=== PATIENT | male | born 1950 | race Two or more races ===

== ENCOUNTER → 2016-07-10 | Outpatient (CLI) | payer MEDICARE, OTHER ==
[2016-07-10 14:57] LABS: ABSOLUTE EOSINOPHILS # (AUTO) 0.1 10^3/uL (0.0-0.6); ABSOLUTE LYMPHOCYTES (AUTO) 2.1 10^3/uL (0.5-4.7); ABSOLUTE MONOCYTES (AUTO) 0.5 10^3/uL (0.1-1.4); ABSOLUTE NEUT (AUTO) 3.9 10^3/uL (1.7-8.2); BASOPHILS % (AUTO) 0.4 % (0-2); EOSINOPHILS % (AUTO) 1.2 % (0-6); HEMATOCRIT 41.8 % (37.9-51.0); HEMOGLOBIN 13.2 g/dL (13.5-17.0); HGB HCT DIFFERENCE -2.2; LYMPHOCYTES % (AUTO) 31.5 % (13-45); MEAN CORPUSCULAR HEMOGLOBIN 28.8 pg (27.0-33.4); MEAN CORPUSCULAR HGB CONC 31.5 g/dL (32.0-36.0); MEAN CORPUSCULAR VOLUME 91 fl (80-97); MONOCYTES % (AUTO) 7.5 % (3-13); RED BLOOD COUNT 4.57 10^6/uL (4.35-5.55); RED CELL DISTRIBUTION WIDTH 14.2 % (11.5-14.0); SEGMENTED NEUTROPHILS % (AUTO) 59.4 % (42-78); WHITE BLOOD COUNT 6.6 10^3/uL (4.0-10.5)
[2016-07-10 14:58] LABS: APPEARANCE,URINE CLEAR; BILIRUBIN,URINE NEGATIVE (NEGATIVE); GLUCOSE, URINE 50 mg/dL (NEGATIVE); KETONES,URINE NEGATIVE (NEGATIVE); LEUKOCYTE ESTERASE,URINE NEGATIVE (NEGATIVE); NITRITE,URINE NEGATIVE (NEGATIVE); PROTEIN,URINE NEGATIVE (NEGATIVE); URINE SPECIFIC GRAVITY 1.014; UROBILINOGEN,URINE NEGATIVE mg/dL (<2.0)
[2016-07-10 15:19] LABS: ANION GAP 12 (5-19); BLOOD UREA NITROGEN 11 mg/dL (7-20); CALCIUM 9.5 mg/dL (8.4-10.2); CARBON DIOXIDE 28 mmol/L (22-30); CHLORIDE 103 mmol/L (98-107); CREATININE RESULT 0.73 mg/dL (0.52-1.25); GLUCOSE 163 mg/dL (75-110); POTASSIUM 4.8 mmol/L (3.6-5.0)
--- NOTE | 2016-07-10 19:22 | EKG REPORT ---
SEVERITY:- NORMAL ECG - SINUS RHYTHM : Confirmed by: Lisa Hernandes MD 10-Jul-2016 19:22:01
== END ==
LOC: OD 13:59
PROVIDERS: ATTEND Orthopaedic Surgery
DX: Z01.810 Encounter for preprocedural cardiovascular examination (principal); Z01.811 Encounter for preprocedural respiratory examination; Z01.818 Encounter for other preprocedural examination; M17.12 Unilateral primary osteoarthritis, left knee; E11.9 Type 2 diabetes mellitus without complications; Z79.899 Other long term (current) drug therapy
CPT/HCPCS: 36415; 71020; 80048; 81001; 85025; 93005; 93010

== ENCOUNTER 2016-08-18 07:27 | Inpatient (IN) | payer MEDICARE, BC, OTHER ==
[2016-08-07 13:15] LABS: HEMATOCRIT 40.5 % (37.9-51.0); HEMOGLOBIN 13.4 g/dL (13.5-17.0); HGB HCT DIFFERENCE -0.3; MEAN CORPUSCULAR HEMOGLOBIN 29.3 pg (27.0-33.4); MEAN CORPUSCULAR HGB CONC 33.2 g/dL (32.0-36.0); MEAN CORPUSCULAR VOLUME 88 fl (80-97); RED BLOOD COUNT 4.58 10^6/uL (4.35-5.55); RED CELL DISTRIBUTION WIDTH 14.6 % (11.5-14.0); WHITE BLOOD COUNT 7.4 10^3/uL (4.0-10.5)
[2016-08-07 13:19] LABS: APPEARANCE,URINE CLEAR; BILIRUBIN,URINE NEGATIVE (NEGATIVE); GLUCOSE, URINE 150 mg/dL (NEGATIVE); KETONES,URINE NEGATIVE (NEGATIVE); LEUKOCYTE ESTERASE,URINE NEGATIVE (NEGATIVE); NITRITE,URINE NEGATIVE (NEGATIVE); PROTEIN,URINE NEGATIVE (NEGATIVE); URINE SPECIFIC GRAVITY 1.006; UROBILINOGEN,URINE NEGATIVE mg/dL (<2.0)
[2016-08-07 13:38] LABS: ANION GAP 8 (5-19); BLOOD UREA NITROGEN 8 mg/dL (7-20); CALCIUM 9.8 mg/dL (8.4-10.2); CARBON DIOXIDE 29 mmol/L (22-30); CHLORIDE 101 mmol/L (98-107); CREATININE RESULT 0.66 mg/dL (0.52-1.25); GLUCOSE 202 mg/dL (75-110); POTASSIUM 4.4 mmol/L (3.6-5.0); SODIUM 137.8 mmol/L (137-145)
[~2016-08-18 07:27] MED LIST: BUPIVACAINE INJ/PF LIPOSOME/PF 266 MG/20 ML SDV INFIL PRN; CEFAZOLIN INJ 1 GM VIAL IV PRN; IBUPROFEN 800 MG in NORMAL SALINE 250 ML IV PRN; LANSOPRAZOLE 15 MG TAB.RAP.DR PO PRN; NORMAL SALINE 1000 ML 1,000 ML IV PRN; OXYCODONE HCL SR 10 MG TABLET PO PRN; SCOPOLAMINE HYDROBROMIDE 1.5 MG PATCH.TD72 TD PRN; VANCOMYCIN HCL 1,000 MG in DEXTROSE 5%-WATER 250 ML IV PRN
[2016-08-18] MEDS ORDERED: METOCLOPRAMIDE HCL INJ/PF 10 MG/2 ML SDV ONE ×2 (08:50→14:20)
[2016-08-18] MEDS ORDERED: FAMOTIDINE INJ/PF 20 MG/2 ML SDV IV ONE (08:50)
[2016-08-18] MEDS ORDERED: THROMBIN (BOVINE) 5000 UNIT EPITAXIS KIT ONE (08:51)
[2016-08-18] MEDS ORDERED: BUPIVACAINE INJ/PF LIPOSOME/PF 266 MG/20 ML SDV ONE (08:51)
[2016-08-18] MEDS ORDERED: THROMBIN (BOVINE) TOPICAL 20000 UNIT VIAL ONE (08:51)
[2016-08-18] MEDS ORDERED: MIDAZOLAM 2 MG/2 ML INJ ONE (09:24)
[2016-08-18] MEDS ORDERED: FENTANYL CITRATE INJ/PF 250 MCG/5 ML AMPULE ONE (09:24)
[2016-08-18] MEDS ORDERED: PROPOFOL INJ 200 MG/20 ML VIAL IV ONE (09:25)
[2016-08-18] MEDS ORDERED: DEXMEDETOMIDINE INJ 80 MCG/20 ML VIAL IV ONE (09:25)
[2016-08-18] MEDS ORDERED: MORPHINE SULFATE 10 MG/ML INJ ONE (09:25)
[2016-08-18] MEDS ORDERED: TRANEXAMIC ACID INJ/PF 1,000 MG/10 ML SDV IV ONE ×2 (09:25→13:00)
[2016-08-18] MEDS ORDERED: PROMETHAZINE HCL INJ 25 MG/1 ML VIAL IV PRN ×2 (11:11)
[2016-08-18] MEDS ORDERED: DIPHENHYDRAMINE HCL 50 MG/ML VIAL IV PRN ×2 (11:11→11:41)
[2016-08-18] MEDS ORDERED: MEPERIDINE HCL/PF INJ 25 MG/1 ML DISP.SYRIN IV PRN (11:11)
[2016-08-18] MEDS ORDERED: OXYCODONE-ACETAMINOPHEN 5-325 MG TABLET PO PRN ×2 (11:11)
[2016-08-18] MEDS ORDERED: FENTANYL CITRATE INJ/PF 100 MCG/2 ML AMPUL IV PRN ×3 (11:11)
[2016-08-18] MEDS ORDERED: MORPHINE SULFATE 10 MG/ML INJ IV PRN ×3 (11:11→11:41)
[2016-08-18] MEDS ORDERED: RINGERS SOLUTION,LACTATED 1,000 ML IV PRN (11:41)
[2016-08-18] MEDS ORDERED: ACETAMINOPHEN 325 MG TABLET PO PRN (11:41)
[2016-08-18] MEDS ORDERED: MORPHINE SULFATE 10 MG/ML INJ IM PRN (11:41)
[2016-08-18] MEDS ORDERED: MAG HYDROX/AL HYDROX/SIMETH SUSP 30 ML UDCUP PO PRN (11:41)
[2016-08-18] MEDS ORDERED: ONDANSETRON 4 MG TAB.RAPDIS PO PRN (11:41)
--- NOTE | 2016-08-18 11:41 | Operative Report ---
Operative Report DATE OF SURGERY: 08/18/16 PREOPERATIVE DIAGNOSIS: Left knee arthritis OPERATION: Left knee arthroplasty SURGEON: FRANKY RIDER ANESTHESIA: Spinal TISSUE REMOVED OR ALTERED: Bone to pathology ESTIMATED BLOOD LOSS: 100 PROCEDURE: Implants used: Femur: Striker triathlon #7 CR femur Tibia:, 6 tibia Tibial liner:, 11 millimeters CS insert Patella:, 38 mm oval patella Procedure with the patient supine on the operating table the, left the limb is prepped and draped in a sterile fashion. The limb was elevated for exsanguination and the tourniquet inflated to 280 torr. A standard midline median parapatellar approach the knee is taken. Access is gained to the femoral canal through the intercondylar notch. Intramedullary alignment instrumentation used to resect 10 mm of distal femur in 5 of valgus. Sizing guide indicated a size 7 femur. Appropriate cutting jig is then used to fashion anterior posterior and chamfer cuts. A trial reduction femurs performed and this is judged to be adequate. Attention was next turned to the tibia. Using an extra medullary alignment system 9 millimeters was resected off the lateral tibial plateau. This is sized to a size 6 tibia. A trial reduction was now performed with a 7 femur and a 6 tibia using a 11 millimeters spacer. It is full extension and central patellofemoral tracking. The articular surface the patella was next resected using an oscillating saw. All trial implants were removed. Polymethylmethacrylate is mixed and used to cement the above implants in place. On adequate curing the cement excess cement was removed the tourniquet was deflated hemostasis obtained the wound is then closed in layers using interrupted Vicryl followed by amanda. A sterile compressive dressing was applied and the patient returned to recovery room in satisfactory condition.
[2016-08-18] MEDS ORDERED: DEXTROSE 40% GEL 15 GM TUBE PO PRN (12:24)
[2016-08-18] MEDS ORDERED: DEXTROSE 40% GEL 15 GM TUBE X 2 PO PRN (12:24)
[2016-08-18] MEDS ORDERED: INSULIN LISPRO 100 UNIT/ML 3 ML VIAL SUBCUT PRN (12:24)
[2016-08-18] MEDS ORDERED: DEXTROSE 50%-WATER SYRINGE 25 GM/50 ML DOSE IV PRN (12:24)
[2016-08-18] MEDS ORDERED: GLUCAGON,HUMAN RECOMB 1 MG INJ IM PRN (12:24)
[2016-08-18] MEDS ORDERED: DEXTROSE 50%-WATER SYRINGE 12.5 GM/25 ML DOSE IV PRN (12:24)
[2016-08-18] MEDS ORDERED: GLYCOPYRROLATE INJ 0.4 MG/2 ML VIAL ONE (14:20)
[2016-08-18] MEDS ORDERED: LIDOCAINE 2% INJ-PF (20 MG/ML) 10 ML AMPUL ONE (14:20)
[2016-08-18] MEDS ORDERED: PHENYLEPHRINE HCL INJ/PF 10 MG/1 ML SDV ONE (14:20)
[2016-08-18] MEDS ORDERED: ONDANSETRON HCL INJ/PF 4 MG/2 ML SDV ONE (14:20)
[2016-08-18] MEDS: OXYBUTYNIN CHLORIDE 5 MG TABLET PO SCH ×2 (15:22→22:34)
[2016-08-18] MEDS: MORPHINE SULFATE 10 MG/ML INJ IV PRN (15:49)
[2016-08-18] MEDS: OMEGA-3 ACID ETHYL ESTERS 1 GM CAPSULE PO SCH (17:36)
[2016-08-18] MEDS: SENNOSIDES/DOCUSATE 8.6-50 MG 1 EACH TABLET PO SCH (17:36)
[2016-08-18] MEDS: SITAGLIPTIN PHOSPHATE 50 MG TABLET PO SCH (17:37)
[2016-08-18] MEDS: METFORMIN HCL 500 MG TABLET PO SCH (17:37)
[2016-08-18] MEDS: ONDANSETRON HCL INJ/PF 4 MG/2 ML SDV IV PRN (17:37)
[2016-08-18] MEDS: ATORVASTATIN CALCIUM 40 MG TABLET PO SCH (17:37)
[2016-08-18] MEDS: IBUPROFEN 800 MG in NORMAL SALINE 250 ML IV SCH (17:38)
[2016-08-18] MEDS ORDERED: (PENDING PHARMACY ID) (Fish Oil/Dha/Epa [Fish Oil 1,200 Mg Fish Oil] 1 EACH) PO SCH (18:00)
[2016-08-18] MEDS ORDERED: (PENDING PHARMACY ID) (Sitagliptin Phos/Metformin Hcl [Janumet 50-1,000 Mg Tablet] 1 EACH) PO SCH (18:00)
[2016-08-18] MEDS ORDERED: OXYBUTYNIN CHLORIDE 15 MG PO SCH (22:00)
[2016-08-18] MEDS: OXYCODONE HCL SR 10 MG TABLET PO SCH (22:34)
[2016-08-18] MEDS: RIVAROXABAN 10 MG TABLET PO SCH (22:36)
[2016-08-18] MEDS ORDERED: VANCOMYCIN HCL 1,000 MG in DEXTROSE 5%-WATER 250 ML IV ONE (23:41)
[2016-08-19] MEDS: IBUPROFEN 800 MG in NORMAL SALINE 250 ML IV SCH ×3 (03:01→17:21)
[2016-08-19] MEDS: OXYCODONE HCL IR 5 MG TABLET PO PRN ×3 (04:01→17:21)
[2016-08-19] MEDS: OXYBUTYNIN CHLORIDE 5 MG TABLET PO SCH ×2 (05:57→14:03)
[2016-08-19] MEDS: LANSOPRAZOLE 30 MG TAB.RAP.DR PO SCH (05:57)
[2016-08-19 06:56] LABS: HEMATOCRIT 32.5 % (37.9-51.0); HGB HCT DIFFERENCE 0.5; MEAN CORPUSCULAR VOLUME 89 fl (80-97); RED BLOOD COUNT 3.68 10^6/uL (4.35-5.55); RED CELL DISTRIBUTION WIDTH 14.4 % (11.5-14.0); WHITE BLOOD COUNT 7.4 10^3/uL (4.0-10.5)
--- NOTE | 2016-08-19 06:59 | PDOC PROGRESS REPORT ---
Subjective Progress Note for:: 08/19/16 Subjective:: Patient with minimal complaints Physical Exam Vital Signs: Temp Pulse Resp BP Pulse Ox 36.9 C 62 18 119/60 95 08/19/16 04:24 08/19/16 04:24 08/19/16 04:24 08/19/16 04:24 08/19/16 04:24 Intake & Output 08/17/16 08/18/16 08/19/16 06:59 06:59 06:59 Intake Total 5736 Output Total 3220 Balance 2516 General appearance: PRESENT: no acute distress Head exam: PRESENT: normocephalic Eye exam: PRESENT: EOMI Respiratory exam: PRESENT: unlabored Cardiovascular exam: PRESENT: RRR Pulses: PRESENT: +1 pedal pulses bilateral Vascular exam: PRESENT: normal capillary refill GI/Abdominal exam: PRESENT: soft Rectal exam: PRESENT: deferred Extremities exam: PRESENT: other - Left lower extremity dressing clean dry and intact. Distal neurovascular examinations intact. Neurological exam: PRESENT: alert, awake, oriented to person, oriented to place , oriented to time, oriented to situation, CN II-XII grossly intact. ABSENT: motor sensory deficit Psychiatric exam: PRESENT: appropriate affect, normal mood. ABSENT: homicidal ideation, suicidal ideation Skin exam: PRESENT: dry, intact, warm. ABSENT: cyanosis, rash Results Impressions: Knee X-Ray 08/18/16 11:42 IMPRESSION: SATISFACTORY POSTOPERATIVE LEFT KNEE. Status: Imported from PACS Assessment & Plan - Diagnosis (1) Arthritis of left knee Is this a current diagnosis for this admission?: YesPlan: 66-year-old male postop day 1 from left knee arthroplasty. Blood glucoses are well controlled. He is ambulating 100 feet with a walker and physical therapy. Anticipate discharge home tomorrow with home health nursing, home health physical therapy, we'll Walker, bedside commode. (2) Diabetes Qualifiers: Diabetes mellitus type: type 2 Is this a current diagnosis for this admission?: YesPlan: Patient relatively well controlled with blood glucoses running between 140 and 193 on his home regimen with a superimposed sliding scale. - Time Time Spent with patient: 15-24 minutes Anticipated discharge: Home with Homehealth Within: within 24 hours
[2016-08-19 07:20] LABS: ANION GAP 8 (5-19); BLOOD UREA NITROGEN 11 mg/dL (7-20); CALCIUM 9.2 mg/dL (8.4-10.2); CARBON DIOXIDE 28 mmol/L (22-30); CHLORIDE 104 mmol/L (98-107); CREATININE RESULT 0.68 mg/dL (0.52-1.25); GLUCOSE 186 mg/dL (75-110); POTASSIUM 4.5 mmol/L (3.6-5.0); SODIUM 140.2 mmol/L (137-145)
[2016-08-19] MEDS ORDERED: ENALAPRIL MALEATE 40 MG PO SCH (08:00)
[2016-08-19] MEDS: METFORMIN HCL 500 MG TABLET PO SCH ×2 (08:39→17:21)
[2016-08-19] MEDS: SITAGLIPTIN PHOSPHATE 50 MG TABLET PO SCH ×2 (08:39→17:21)
[2016-08-19] MEDS: OMEGA-3 ACID ETHYL ESTERS 1 GM CAPSULE PO SCH ×2 (08:39→17:21)
[2016-08-19] MEDS: GLIPIZIDE XL 5 MG TAB.ER.24 PO SCH (08:39)
[2016-08-19] MEDS: PRENATAL VITAMIN W-O CA NO5/FE FUMARATE/FA CAPSULE PO SCH (11:13)
[2016-08-19] MEDS: ENALAPRIL MALEATE 10 MG TABLET PO SCH (11:13)
[2016-08-19] MEDS: SENNOSIDES/DOCUSATE 8.6-50 MG 1 EACH TABLET PO SCH ×2 (11:13→17:21)
[2016-08-19] MEDS: OXYCODONE HCL SR 10 MG TABLET PO SCH (11:14)
[2016-08-19] MEDS: ATORVASTATIN CALCIUM 40 MG TABLET PO SCH (17:21)
[2016-08-20] MEDS: RIVAROXABAN 10 MG TABLET PO SCH (00:32)
[2016-08-20] MEDS: OXYCODONE HCL SR 10 MG TABLET PO SCH ×2 (00:32→11:46)
[2016-08-20] MEDS: OXYBUTYNIN CHLORIDE 5 MG TABLET PO SCH ×2 (00:32→06:11)
[2016-08-20] MEDS: IBUPROFEN 800 MG in NORMAL SALINE 250 ML IV SCH ×2 (01:51→11:50)
[2016-08-20] MEDS: LANSOPRAZOLE 30 MG TAB.RAP.DR PO SCH (06:11)
--- NOTE | 2016-08-20 07:04 | PDOC DISCHARGE SUMMARY ---
General - Admit/Disc Date/PCP Admission Date/Primary Care Provider: 08/18/16 07:27 ENEDELIA HOPKINS MD Discharge Date: 08/20/16 - Discharge Diagnosis (1) Arthritis of left knee Is this a current diagnosis for this admission?: Yes (2) Diabetes Is this a current diagnosis for this admission?: Yes - Additional Information Resuscitation Status: Full Code Discharge Activity: Balance Activity w/Rest Home Medications: Atorvastatin Calcium [Lipitor 40 mg Tablet] 40 mg PO QPM 08/05/16 Enalapril Maleate [Vasotec] 40 mg PO QAM 08/05/16 Fish Oil/Dha/Epa [Fish Oil 1,200 mg Fish Oil] 1 each PO BID 08/05/16 Glipizide [Glipizide ER] 5 mg PO QAM 08/05/16 Multivitamin [Multivitamins] 1 each PO QAM 08/05/16 Omeprazole 20 mg PO QAM 08/05/16 Oxybutynin Chloride [Ditropan Xl] 15 mg PO QHS 08/05/16 Sitagliptin Phos/Metformin HCl [Janumet 50-1,000 mg Tablet] 1 each PO BID Oxycodone HCl [Oxy-Ir 5 mg Tablet] 5 mg PO Q6HP PRN #0 tablet 08/20/16 Rivaroxaban [Xarelto 10 mg Tablet] 10 mg PO QHS #0 tablet 08/20/16 History of Present Illness History of Present Illness: CLAIRE CABEZAS is a 66 year old male who presents with progressive left knee pain and functional disability secondary osteoarthritis. He is admitted for an elective left knee arthroplasty. Hospital Course Hospital Course: The patient submitted to the operating room where he undergoes an uncomplicated left knee arthroplasty. His returned to floor in satisfactory condition. He ambulates 300 feet on the first day. He makes further progress the next day. His diabetes is well controlled with his home regimen and a superimposed sliding scale. Several wrap is removed on postop day 2. Left knee. Go dressing is clean dry and intact. Distal neurovascular examinations intact. Physical Exam Vital Signs: Temp Pulse Resp BP Pulse Ox 36.8 C 64 16 137/70 H 98 08/20/16 00:29 08/20/16 00:29 08/20/16 00:29 08/20/16 00:29 08/20/16 00:29 Intake & Output 08/19/16 08/20/16 08/21/16 06:59 06:59 06:59 Intake Total 5736 2195 Output Total 3220 1125 Balance 2516 1070 General appearance: PRESENT: no acute distress Head exam: PRESENT: normocephalic Eye exam: PRESENT: EOMI Respiratory exam: PRESENT: unlabored Cardiovascular exam: PRESENT: RRR Pulses: PRESENT: +1 pedal pulses bilateral Vascular exam: PRESENT: normal capillary refill GI/Abdominal exam: PRESENT: soft Rectal exam: PRESENT: deferred Extremities exam: PRESENT: other - Left knee peak her dressing is clean dry and intact. Distal neurovascular examinations intact. Neurological exam: PRESENT: alert, awake, oriented to person, oriented to place , oriented to time, oriented to situation, CN II-XII grossly intact. ABSENT: motor sensory deficit Psychiatric exam: PRESENT: appropriate affect, normal mood. ABSENT: homicidal ideation, suicidal ideation Skin exam: PRESENT: dry, intact, warm. ABSENT: cyanosis, rash Results Laboratory Results: 08/19/16 06:12 08/19/16 06:12 08/19/16 06:12 Sodium 140.2 Potassium 4.5 Chloride 104 Carbon Dioxide 28 Anion Gap 8 BUN 11 Creatinine 0.68 Est GFR ( Amer) > 60 Est GFR (Non-Af Amer) > 60 Glucose 186 H Calcium 9.2 Impressions: Knee X-Ray 08/18/16 11:42 IMPRESSION: SATISFACTORY POSTOPERATIVE LEFT KNEE. Status: Imported from PACS Plan Discharge Plan: Patient to be discharged home with home health nursing, home health physical therapy, we'll Walker, bedside commode. Follow-up can be with Dr. Maddox [facility] for surgery in 2 weeks for staple removal. Peak a dressing can be removed by home health nursing on postop day 7, and replace with an OpSite. Time Spent: Less than 30 Minutes
[2016-08-20 07:35] LABS: HEMATOCRIT 33.4 % (37.9-51.0); HEMOGLOBIN 11.1 g/dL (13.5-17.0); HGB HCT DIFFERENCE -0.1; MEAN CORPUSCULAR HEMOGLOBIN 29.7 pg (27.0-33.4); MEAN CORPUSCULAR HGB CONC 33.1 g/dL (32.0-36.0); MEAN CORPUSCULAR VOLUME 90 fl (80-97); RED BLOOD COUNT 3.73 10^6/uL (4.35-5.55); RED CELL DISTRIBUTION WIDTH 14.6 % (11.5-14.0); WHITE BLOOD COUNT 11.2 10^3/uL (4.0-10.5)
[2016-08-20] MEDS: MORPHINE SULFATE 10 MG/ML INJ IV PRN (07:59)
[2016-08-20] MEDS: ONDANSETRON HCL INJ/PF 4 MG/2 ML SDV IV PRN (07:59)
[2016-08-20] MEDS: METFORMIN HCL 500 MG TABLET PO SCH (08:37)
[2016-08-20] MEDS: OMEGA-3 ACID ETHYL ESTERS 1 GM CAPSULE PO SCH (08:38)
[2016-08-20] MEDS: GLIPIZIDE XL 5 MG TAB.ER.24 PO SCH (08:38)
[2016-08-20] MEDS: SITAGLIPTIN PHOSPHATE 50 MG TABLET PO SCH (08:38)
[2016-08-20] MEDS: ENALAPRIL MALEATE 10 MG TABLET PO SCH (11:48)
[2016-08-20] MEDS: PRENATAL VITAMIN W-O CA NO5/FE FUMARATE/FA CAPSULE PO SCH (11:49)
[2016-08-20] MEDS: SENNOSIDES/DOCUSATE 8.6-50 MG 1 EACH TABLET PO SCH (11:50)
[2016-08-20 12:32] VITALS: BP 151/68
== END 2016-08-20 15:30 | disposition home health service (06) | DRG 470 ==
LOC: INOR 07:27 → 4S 14:09
PROVIDERS: ADMIT Orthopaedic Surgery; ATTEND Orthopaedic Surgery
PROC: 0SRD0J9 Replacement of Left Knee Joint with Synthetic Substitute, Cemented, Open Approach (ICD-10-PCS; principal; 2016-08-18 09:30)
DX: M17.12 Unilateral primary osteoarthritis, left knee (principal); E11.9 Type 2 diabetes mellitus without complications; Z79.899 Other long term (current) drug therapy; Z79.82 Long term (current) use of aspirin; Z98.49 Cataract extraction status, unspecified eye
CPT/HCPCS: 01402; 36415; 80048; 81001; 82962; 83036; 85027; 88305; 88311; 94799; C2625; C9290; G8978-GP; G8979-GP; G8987-GO; G8988-GO; J0690; J1741; J2250; J2270; J2370; J2405; J2704; J2765; J3010; J3370; J3490; J7050; J7060; S0028

== ENCOUNTER 2016-08-27 16:58 | Emergency (ER) | payer MEDICARE, BC, OTHER ==
--- NOTE | 2016-08-27 17:22 | ER Document Report ---
ED Medical Screen (RME) - General Stated Complaint: BLOOD SUGAR ISSUES Time seen by provider: 17:17 Mode of Arrival: Wheelchair Information source: Patient Notes: 66-year-old male presents to ED for elevated blood sugars with diabetes type II. He is on janumet twice a day. He has had knee replacement surgery on 08/18/2016 and since Thursday his sugars have been out of control. He was seen last night and started on Lantus insulin 15 units each night and was told to take the insulin each night. This morning after breakfast his sugar was elevated again. I have greeted and performed a rapid initial assessment of this patient. A comprehensive ED assessment and evaluation of the patient, analysis of test results and completion of medical decision making process will be conducted by an additional ED providers. TRAVEL OUTSIDE OF THE [place] IN LAST 30 DAYS: No - Related Data Allergies/Adverse Reactions: No Known Allergies Allergy (Verified 08/27/16 17:15) Past Medical History - Past Medical History Cardiac Medical History: Reports: Hx Heart Attack - 2008-Mild, Hx Hypercholesterolemia - since 1981, takes meds, Hx Hypertension - since 1981, takes meds Denies: Hx Atrial Fibrillation, Hx Congestive Heart Failure, Hx Coronary Artery Disease, Hx Peripheral Vascular Disease, Hx Pulmonary Embolism, Hx Heart Murmur Pulmonary Medical History: Reports: Hx Pneumonia - 2006? Denies: Hx Asthma, Hx Bronchitis, Hx COPD, Hx Respiratory Failure, Hx Sleep Apnea, Hx Tuberculosis Endocrine Medical History: Reports: Hx Diabetes Mellitus Type 2. Denies: Hx Graves' Disease, Hx Hyperthyroidism, Hx Hypothyroidism Renal/ Medical History: Reports: Hx Benign Prostatic Hyperplasia. Denies: Hx End Stage Renal Disease, Hx Kidney Stones, Hx Peritoneal Dialysis Malignancy Medical History: Denies Hx Lung Cancer GI Medical History: Reports: Hx Gastroesophageal Reflux Disease. Denies: Hx Crohn's Disease, Hx Hiatal Hernia, Hx Irritable Bowel, Hx Liver Failure, Hx Ulcer Musculoskeltal Medical History: Reports Hx Arthritis, Denies Hx Fibromyalgia, Denies Hx Muscular Dystrophy Traumatic Medical History: Denies: Hx Fractures Past Surgical History: Reports: Hx Herniorrhaphy - 1975 Inguinal, Hx Orthopedic Surgery - bilateral knees; L knee. Denies: Hx Appendectomy, Hx Bowel Surgery, Hx Cholecystectomy, Hx Colostomy, Hx Coronary Artery Bypass Graft, Hx Gastric Bypass Surgery, Hx Pacemaker, Hx Tonsillectomy - Immunizations Hx Diphtheria, Pertussis, Tetanus Vaccination: Yes
[2016-08-27 18:10] LABS: ABSOLUTE EOSINOPHILS # (AUTO) 0.1 10^3/uL (0.0-0.6); ABSOLUTE LYMPHOCYTES (AUTO) 1.6 10^3/uL (0.5-4.7); ABSOLUTE MONOCYTES (AUTO) 1.2 10^3/uL (0.1-1.4); ABSOLUTE NEUT (AUTO) 8.8 10^3/uL (1.7-8.2); BASOPHILS % (AUTO) 0.3 % (0-2); EOSINOPHILS % (AUTO) 0.5 % (0-6); HEMATOCRIT 33.7 % (37.9-51.0); HEMOGLOBIN 11.3 g/dL (13.5-17.0); HGB HCT DIFFERENCE 0.2; LYMPHOCYTES % (AUTO) 13.9 % (13-45); MEAN CORPUSCULAR HEMOGLOBIN 29.1 pg (27.0-33.4); MEAN CORPUSCULAR HGB CONC 33.4 g/dL (32.0-36.0); MEAN CORPUSCULAR VOLUME 87 fl (80-97); RED BLOOD COUNT 3.88 10^6/uL (4.35-5.55); RED CELL DISTRIBUTION WIDTH 14.4 % (11.5-14.0); SEGMENTED NEUTROPHILS % (AUTO) 75.3 % (42-78); WHITE BLOOD COUNT 11.7 10^3/uL (4.0-10.5)
[2016-08-27 18:18] LABS: APPEARANCE,URINE SLIGHTLY-CLOUDY; BILIRUBIN,URINE NEGATIVE (NEGATIVE); GLUCOSE, URINE >=500 mg/dL (NEGATIVE); KETONES,URINE NEGATIVE (NEGATIVE); LEUKOCYTE ESTERASE,URINE NEGATIVE (NEGATIVE); NITRITE,URINE NEGATIVE (NEGATIVE); PROTEIN,URINE NEGATIVE (NEGATIVE); URINE SPECIFIC GRAVITY 1.022
[2016-08-27 18:27] LABS: ALANINE AMINOTRANSFERASE 32 U/L (21-72); ALBUMIN 3.8 g/dL (3.5-5.0); ALKALINE PHOSPHATASE 90 U/L (38-126); ANION GAP 11 (5-19); ASPARTATE AMINO TRANSFERASE 22 U/L (17-59); BILIRUBIN,TOTAL 1.2 mg/dL (0.2-1.3); BLOOD UREA NITROGEN 17 mg/dL (7-20); CALCIUM 9.6 mg/dL (8.4-10.2); CARBON DIOXIDE 28 mmol/L (22-30); CHLORIDE 96 mmol/L (98-107); CREATININE RESULT 0.78 mg/dL (0.52-1.25); GLUCOSE 293 mg/dL (75-110); POTASSIUM 4.8 mmol/L (3.6-5.0); SODIUM 134.9 mmol/L (137-145); TOTAL PROTEIN 7.4 g/dL (6.3-8.2)
[2016-08-27] MEDS ORDERED: NORMAL SALINE 1000 ML 1,000 ML IV ONE (21:08)
[2016-08-27] MEDS ORDERED: INSULIN REG, HUMAN 100 UNIT/ML 3 ML VIAL (PYX) IV ONE (21:28)
--- NOTE | 2016-08-27 21:35 | ER Document Report ---
ED Blood Sugar Problem - General Chief Complaint: High Blood Sugar Stated Complaint: BLOOD SUGAR ISSUES Mode of Arrival: Wheelchair Information source: Patient, Relative Notes: 66 y/o M presents to ED c/o elevated blood glucose. Pt reports hx of type 2 NIDDM on glipizide and janumet. States blood sugars were well controlled at home until he had left knee replacement surgery last week and glucose has hovered in the high 200's since the surgery. Reports was seen in this ED yesterday and given insulin and NS bolus and dose of Lantus as well as prescription for home. States glucose had decreased this morning subsequently increased throughout the day. Also c/o left lower back pain. States thinks may be due to favoring left leg since surgery. Denies fever, dysuria, n/v, paresthesias, chest pain, sob. Reports left knee appears to be healing well and denies increased swelling, redness, or pain. TRAVEL OUTSIDE OF THE [place] IN LAST 30 DAYS: No - HPI Onset/Duration: Intermittent, Persistent Blood sugar level at home: 290 D-stick result: 293 Associated symptoms: None Similar symptoms previously: Yes Recently seen / treated by doctor: Yes - Related Data Allergies/Adverse Reactions: No Known Allergies Allergy (Verified 08/27/16 17:15) Past Medical History - General Information source: Patient - Social History Smoking Status: Never Smoker Chew tobacco use (# tins/day): No Frequency of alcohol use: None Drug Abuse: None Lives with: Family Family History: Reviewed & Not Pertinent Patient has suicidal ideation: No Patient has homicidal ideation: No - Past Medical History Cardiac Medical History: Reports: Hx Heart Attack - 2008-Mild, Hx Hypercholesterolemia - since 1981, takes meds, Hx Hypertension - since 1981, takes meds Denies: Hx Atrial Fibrillation, Hx Congestive Heart Failure, Hx Coronary Artery Disease, Hx Peripheral Vascular Disease, Hx Pulmonary Embolism, Hx Heart Murmur Pulmonary Medical History: Reports: Hx Pneumonia - 2006? Denies: Hx Asthma, Hx Bronchitis, Hx COPD, Hx Respiratory Failure, Hx Sleep Apnea, Hx Tuberculosis Endocrine Medical History: Reports: Hx Diabetes Mellitus Type 2. Denies: Hx Graves' Disease, Hx Hyperthyroidism, Hx Hypothyroidism Renal/ Medical History: Reports: Hx Benign Prostatic Hyperplasia. Denies: Hx End Stage Renal Disease, Hx Kidney Stones, Hx Peritoneal Dialysis Malignancy Medical History: Denies Hx Lung Cancer GI Medical History: Reports: Hx Gastroesophageal Reflux Disease. Denies: Hx Crohn's Disease, Hx Hiatal Hernia, Hx Irritable Bowel, Hx Liver Failure, Hx Ulcer Musculoskeltal Medical History: Reports Hx Arthritis, Denies Hx Fibromyalgia, Denies Hx Muscular Dystrophy Traumatic Medical History: Denies: Hx Fractures Past Surgical History: Reports: Hx Herniorrhaphy - 1975 Inguinal, Hx Orthopedic Surgery - bilateral knees; L knee. Denies: Hx Appendectomy, Hx Bowel Surgery, Hx Cholecystectomy, Hx Colostomy, Hx Coronary Artery Bypass Graft, Hx Gastric Bypass Surgery, Hx Pacemaker, Hx Tonsillectomy - Immunizations Hx Diphtheria, Pertussis, Tetanus Vaccination: Yes Hx Pneumococcal Vaccination: 03/15/17 Review of Systems - Review of Systems Constitutional: See HPI EENT: No symptoms reported Cardiovascular: No symptoms reported Respiratory: No symptoms reported Gastrointestinal: No symptoms reported Genitourinary: No symptoms reported Male Genitourinary: No symptoms reported Musculoskeletal: See HPI Skin: No symptoms reported Hematologic/Lymphatic: No symptoms reported Neurological/Psychological: No symptoms reported -: Yes All other systems reviewed and negative Physical Exam - Vital signs Vitals: Temp Pulse Resp BP Pulse Ox 99.7 F 88 18 158/79 H 97 08/27/16 17:06 08/27/16 17:06 08/27/16 17:06 08/27/16 17:06 08/27/16 17:06 Interpretation: Normal - General General appearance: Appears well, Alert In distress: None - HEENT Head: Normocephalic, Atraumatic Eyes: Normal Pupils: PERRL - Respiratory Respiratory status: No respiratory distress Chest status: Nontender Breath sounds: Normal Chest palpation: Normal - Cardiovascular Rhythm: Regular Heart sounds: Normal auscultation Murmur: No Pulses: Normal: Radial, Posterior tibial, Dorsalis pedis Normal capillary refill: Yes - Abdominal Inspection: Normal Distension: No distension Bowel sounds: Normal Tenderness: Nontender Organomegaly: No organomegaly - Back Back: Tender - Mild tenderness to palpation to left paraspinal musculature lumbar level. Full range of motion without paresthesias. Patient reports pain is worse with movement of left leg.. No: Normal, Nontender, Deformity/step-off , CVA tenderness, Vertebra tenderness, Scars, Scoliosis, Wounds, Other - Extremities General upper extremity: Normal inspection, Nontender, Normal color, Normal ROM , Normal strength, Normal temperature. No: Edema General lower extremity: Normal inspection, Nontender, Normal color, Normal ROM , Normal strength, Normal temperature. No: Edema Knee: Other - Patient has clean postsurgical bandage to left knee with no drainage or bleeding noted. No proximal or distal surrounding significant swelling, erythema, warmth, or bruising. Distal neurovascular and motor function intact. Ankle: Normal Foot: Normal - Neurological Neuro grossly intact: Yes Cognition: Normal Orientation: AAOx4 Andrea Coma Scale Eye Opening: Spontaneous [place] Coma Scale Verbal: Oriented [place] Coma Scale Motor: Obeys Commands [place] Coma Scale Total: 15 Speech: Normal Motor strength normal: LUE, RUE, LLE, RLE Sensory: Normal - Psychological Associated symptoms: Normal affect, Normal mood - Skin Skin Temperature: Warm Skin Moisture: Dry Skin Color: Normal Course - Re-evaluation Re-evalutation: 08/27/16 22:48 Patient hemodynamically stable, in no distress, afebrile, and appears well- hydrated. No suggestion of infection, DKA, or other complications from hyperglycemia at this time. Patient responded well to 1 L normal saline bolus and 4 units regular insulin IV. Discussed at length home care including diet and monitoring of blood sugar, follow-up with PCP, and ED return precautions. Patient appears stable at this time and is agreeable with discharge instructions. - Vital Signs Vital signs: Temp Pulse Resp BP Pulse Ox 98.6 F 72 16 120/61 94 08/27/16 22:45 08/27/16 22:44 08/27/16 22:44 08/27/16 22:44 08/27/16 22:44 - Laboratory Result Diagrams: 08/27/16 17:35 08/27/16 17:35 Laboratory results interpreted by me: 08/27/16 08/27/16 08/27/16 17:35 17:35 17:35 WBC 11.7 H RBC 3.88 L Hgb 11.3 L Hct 33.7 L RDW 14.4 H Absolute Neutrophils 8.8 H Sodium 134.9 L Chloride 96 L Glucose 293 H Urine Glucose (UA) >=500 H Urine Urobilinogen 4.0 H Discharge - Discharge Clinical Impression: Hyperglycemia Condition: Stable Disposition: HOME, SELF-CARE Instructions: Hyperglycemia ([facility]), Low Back Pain ([facility]) Additional Instructions: Continue taking your previously prescribed medications as directed and continue checking blood sugar several times evenly spaced during the day. Drink plenty of non-sugary fluids. Follow-up with your primary care provider tomorrow. Return to the emergency department for any worsening symptoms or any concerns. Referrals: ENEDELIA HOPKINS MD [Primary Care Provider] - Follow up tomorrow
[2016-08-27 22:45] VITALS: BP 120/61
== END 2016-08-27 22:59 | disposition home or self-care (01) ==
LOC: ER 16:58
DX: E11.65 Type 2 diabetes mellitus with hyperglycemia (principal); Z79.84 Long term (current) use of oral hypoglycemic drugs; Z98.890 Other specified postprocedural states; Z96.652 Presence of left artificial knee joint; M54.5 Low back pain; I25.2 Old myocardial infarction; I10 Essential (primary) hypertension
CPT/HCPCS: 99284; 96360; 36415; 87086; 82962; 85025; 80053; 81001; 87186; A9270; J7030; J1815

== ENCOUNTER 2017-07-04 15:06 | Emergency (ER) | payer MEDICARE, BC, OTHER ==
--- NOTE | 2017-07-04 17:06 | ER Document Report ---
ED Medical Screen (RME) - General Chief Complaint: Chest Pain Stated Complaint: CHEST PAIN Time Seen by Provider: 07/04/17 16:59 Mode of Arrival: Ambulatory Information source: Patient Notes: 67-year-old male presenting with complaints of near syncope today while playing golf. Patient states that when he would look down to putt he felt like he was "looking through water". Patient states he is lightheaded with an associated headache. Patient denies any chest pain. TRAVEL OUTSIDE OF THE [place] IN LAST 30 DAYS: No - Related Data Allergies/Adverse Reactions: No Known Allergies Allergy (Verified 08/27/16 17:15) Past Medical History - General Information source: Patient, [facility] - Social History Chew tobacco use (# tins/day): No Frequency of alcohol use: None Drug Abuse: None - Past Medical History Cardiac Medical History: Reports: Hx Heart Attack - 2008-Mild, Hx Hypercholesterolemia - since 1981, takes meds, Hx Hypertension - since 1981, takes meds Denies: Hx Atrial Fibrillation, Hx Congestive Heart Failure, Hx Coronary Artery Disease, Hx Peripheral Vascular Disease, Hx Pulmonary Embolism, Hx Heart Murmur Pulmonary Medical History: Reports: Hx Pneumonia - 2006? Denies: Hx Asthma, Hx Bronchitis, Hx COPD, Hx Respiratory Failure, Hx Sleep Apnea, Hx Tuberculosis Endocrine Medical History: Reports: Hx Diabetes Mellitus Type 2. Denies: Hx Graves' Disease, Hx Hyperthyroidism, Hx Hypothyroidism Renal/ Medical History: Reports: Hx Benign Prostatic Hyperplasia. Denies: Hx End Stage Renal Disease, Hx Kidney Stones, Hx Peritoneal Dialysis Malignancy Medical History: Denies Hx Lung Cancer GI Medical History: Reports: Hx Gastroesophageal Reflux Disease. Denies: Hx Crohn's Disease, Hx Hiatal Hernia, Hx Irritable Bowel, Hx Liver Failure, Hx Pancreatitis, Hx Ulcer Musculoskeltal Medical History: Reports Hx Arthritis, Denies Hx Fibromyalgia, Denies Hx Muscular Dystrophy Traumatic Medical History: Denies: Hx Fractures Past Surgical History: Reports: Hx Herniorrhaphy - 1974 Inguinal, Hx Orthopedic Surgery - bilateral knees; L knee. Denies: Hx Appendectomy, Hx Bowel Surgery, Hx Cholecystectomy, Hx Colostomy, Hx Coronary Artery Bypass Graft, Hx Gastric Bypass Surgery, Hx Pacemaker, Hx Tonsillectomy - Immunizations Hx Diphtheria, Pertussis, Tetanus Vaccination: Yes Review of Systems - Review of Systems Cardiovascular: See HPI, Syncope - near, Dizziness, Lightheaded. denies: Chest pain Gastrointestinal: See HPI, Nausea Physical Exam - Vital signs Vitals: Temp Pulse Resp BP Pulse Ox 98.1 F 59 L 16 120/69 97 07/04/17 15:35 07/04/17 15:35 07/04/17 15:35 07/04/17 15:35 07/04/17 15:35 - General General appearance: Appears well, Alert In distress: None - HEENT Head: Normocephalic, Atraumatic Eyes: Normal Conjunctiva: Normal Neck: No: Carotid bruit - Respiratory Respiratory status: No respiratory distress Chest status: Nontender Breath sounds: Normal - Cardiovascular Rhythm: Regular Heart sounds: Normal auscultation Murmur: No Course - Vital Signs Vital signs: Temp Pulse Resp BP Pulse Ox 98.1 F 59 L 16 120/69 97 07/04/17 15:35 07/04/17 15:35 07/04/17 15:35 07/04/17 15:35 07/04/17 15:35 - Laboratory Result Diagrams: 07/04/17 17:25 07/04/17 17:25 Laboratory results interpreted by me: 07/04/17 07/04/17 17:25 17:25 WBC 11.8 H RDW 15.0 H Absolute Neutrophils 9.1 H Glucose 153 H Scribe Documentation - Scribe Written by Braeden:: Braeden Martinez, 07/04/2017 1819 acting as scribe for :: Justina
[2017-07-04 17:54] LABS: ABSOLUTE MONOCYTES (AUTO) 0.7 10^3/uL (0.1-1.4); ABSOLUTE NEUT (AUTO) 9.1 10^3/uL (1.7-8.2); BASOPHILS % (AUTO) 0.2 % (0-2); EOSINOPHILS % (AUTO) 0.2 % (0-6); HEMATOCRIT 41.4 % (37.9-51.0); HEMOGLOBIN 13.8 g/dL (13.5-17.0); LYMPHOCYTES % (AUTO) 16.5 % (13-45); MEAN CORPUSCULAR HEMOGLOBIN 29.3 pg (27.0-33.4); MEAN CORPUSCULAR HGB CONC 33.3 g/dL (32.0-36.0); MEAN CORPUSCULAR VOLUME 88 fl (80-97); MONOCYTES % (AUTO) 5.8 % (3-13); PLATELET COUNT 280 10^3/uL (150-450); RED BLOOD COUNT 4.71 10^6/uL (4.35-5.55); SEGMENTED NEUTROPHILS % (AUTO) 77.3 % (42-78); TOTAL CELLS COUNTED % (AUTO) 100 %; WHITE BLOOD COUNT 11.8 10^3/uL (4.0-10.5)
[2017-07-04 18:10] LABS: ANION GAP 12 (5-19); BLOOD UREA NITROGEN 12 mg/dL (7-20); CALCIUM 9.9 mg/dL (8.4-10.2); CARBON DIOXIDE 27 mmol/L (22-30); CHLORIDE 102 mmol/L (98-107); GLUCOSE 153 mg/dL (75-110); SODIUM 140.9 mmol/L (137-145)
--- NOTE | 2017-07-04 19:36 | ER Document Report ---
ED General - General Chief Complaint: Dizziness Stated Complaint: Light-headed Time Seen by Provider: 07/04/17 16:59 Mode of Arrival: Ambulatory Notes: Patient is a 67-year-old male comes emergency department for chief complaint of dizziness. He states that when [place] earlier [place] when he would look down he felt like he was "looking through water" and felt lightheaded. This improved if he looked upwards but then became more persistent and he had to quit. He denies passing out, visual changes, chest pain, shortness of breath. He states for small. He felt nauseated but this resolved. He denies a spinning sensation. He states he has a headache earlier but this also resolved. He has not had anything to eat today since breakfast. He was seen at urgent care and referred to the emergency department. Past medical history of type 2 diabetes, hyperlipidemia, hypertension, CA, takes baby aspirin daily. He denies any current symptoms while lying down. TRAVEL OUTSIDE OF THE [place] IN LAST 30 DAYS: No - Related Data Allergies/Adverse Reactions: No Known Allergies Allergy (Verified 08/27/16 17:15) Past Medical History - General Information source: Patient, [facility] Records - Social History Smoking Status: Never Smoker Chew tobacco use (# tins/day): No Frequency of alcohol use: None Drug Abuse: None Family History: Reviewed & Not Pertinent Patient has suicidal ideation: No Patient has homicidal ideation: No - Past Medical History Cardiac Medical History: Reports: Hx Heart Attack - 2008-Mild, Hx Hypercholesterolemia - since 1981, takes meds, Hx Hypertension - since 1981, takes meds Denies: Hx Atrial Fibrillation, Hx Congestive Heart Failure, Hx Coronary Artery Disease, Hx Peripheral Vascular Disease, Hx Pulmonary Embolism, Hx Heart Murmur Pulmonary Medical History: Reports: Hx Pneumonia - 2006? Denies: Hx Asthma, Hx Bronchitis, Hx COPD, Hx Respiratory Failure, Hx Sleep Apnea, Hx Tuberculosis Endocrine Medical History: Reports: Hx Diabetes Mellitus Type 2. Denies: Hx Graves' Disease, Hx Hyperthyroidism, Hx Hypothyroidism Renal/ Medical History: Reports: Hx Benign Prostatic Hyperplasia. Denies: Hx End Stage Renal Disease, Hx Kidney Stones, Hx Peritoneal Dialysis Malignancy Medical History: Denies Hx Lung Cancer GI Medical History: Reports: Hx Gastroesophageal Reflux Disease. Denies: Hx Crohn's Disease, Hx Hiatal Hernia, Hx Irritable Bowel, Hx Liver Failure, Hx Pancreatitis, Hx Ulcer Musculoskeltal Medical History: Reports Hx Arthritis, Denies Hx Fibromyalgia, Denies Hx Muscular Dystrophy Traumatic Medical History: Denies: Hx Fractures Past Surgical History: Reports: Hx Herniorrhaphy - 1975 Inguinal, Hx Orthopedic Surgery - bilateral knees; L knee. Denies: Hx Appendectomy, Hx Bowel Surgery, Hx Cholecystectomy, Hx Colostomy, Hx Coronary Artery Bypass Graft, Hx Gastric Bypass Surgery, Hx Pacemaker, Hx Tonsillectomy - Immunizations Hx Diphtheria, Pertussis, Tetanus Vaccination: Yes Hx Pneumococcal Vaccination: 03/15/17 Review of Systems - Review of Systems Constitutional: See HPI EENT: No symptoms reported Cardiovascular: See HPI Respiratory: No symptoms reported Gastrointestinal: No symptoms reported Genitourinary: No symptoms reported Male Genitourinary: No symptoms reported Musculoskeletal: No symptoms reported Skin: No symptoms reported Hematologic/Lymphatic: No symptoms reported Neurological/Psychological: See HPI Physical Exam - Vital signs Vitals: Temp Pulse Resp BP Pulse Ox 98.1 F 59 L 16 120/69 97 07/04/17 15:35 07/04/17 15:35 07/04/17 15:35 07/04/17 15:35 07/04/17 15:35 Interpretation: Normal - General General appearance: Appears well, Alert - HEENT Head: Normocephalic, Atraumatic Eyes: Normal Pupils: PERRL - Respiratory Respiratory status: No respiratory distress Chest status: Nontender Breath sounds: Normal Chest palpation: Normal - Cardiovascular Rhythm: Regular Heart sounds: Normal auscultation Murmur: No - Abdominal Inspection: Normal Distension: No distension Bowel sounds: Normal Tenderness: Nontender Organomegaly: No organomegaly - Back Back: Normal, Nontender - Extremities General upper extremity: Normal inspection, Nontender, Normal color, Normal ROM , Normal temperature General lower extremity: Normal inspection, Nontender, Normal color, Normal ROM , Normal temperature, Normal weight bearing. No: Adriana's sign - Neurological Neuro grossly intact: Yes Cognition: Normal Orientation: AAOx4 [place] Coma Scale Eye Opening: Spontaneous [place] Coma Scale Verbal: Oriented [place] Coma Scale Motor: Obeys Commands Andrea Coma Scale Total: 15 Speech: Normal Cranial nerves: Normal Cerebellar coordination: Normal, Other - Patient with normal gait except occasionally falters but then regains normal gait. 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 With what appears to be likely chronic findings, no fever, leukocytosis, cough, or shortness of breath suggesting pneumonia. CAT scan of the head with no acute abnormality. Vital signs unremarkable, I performed orthostatics at bedside and patient had no change in blood pressure or heart rate with position changes. Patient initially was getting lightheaded while ambulating for me although he does not appear to have trouble ambulating, he did stagger at one point when he stated he got lightheaded. Patient was fed, afterwards he did not have any trouble ambulating but he still became lightheaded and staggered slightly when he would lean down and then stand up. Nonspecific. No bruits on examination, no headache, no neurological deficits on exam. Patient stating he feels a lot better now. Discussed with Dr. Mendoza. Negative workup, nonspecific complaint, unsure of the exact etiology. Does not appear to be cerebellar lack of perfusion/ infarction because he has normal cerebellar examination otherwise and the lightheadedness is only with position changes and only occasionally. Patient is requesting to go home. Because of nonspecific workup, improved symptoms, but no acute obvious abnormalities, patient will have close follow-up performed on Thursday, discussed return precautions, discussed details, patient and family state satisfaction and agreement. - Vital Signs Vital signs: Temp Pulse Resp BP Pulse Ox 98.1 F 53 L 15 145/79 H 96 07/04/17 15:35 07/04/17 19:44 07/04/17 21:03 07/04/17 21:04 07/04/17 21:03 - Laboratory Result Diagrams: 07/04/17 17:25 07/04/17 17:25 Laboratory results interpreted by me: 07/04/17 07/04/17 17:25 17:25 WBC 11.8 H RDW 15.0 H Absolute Neutrophils 9.1 H Glucose 153 H Discharge - Discharge Clinical Impression: Lightheadedness Condition: Stable Disposition: HOME, SELF-CARE Additional Instructions: Your workup at this time including CAT scan of the head and laboratory evaluation do not show any concerning abnormalities. The exact cause of your symptoms are uncertain at this time. Please follow-up with your primary care provider on Thursday for additional testing and management. Return for any concerning or worsening symptoms including headache, weakness on one side of your body, difficulty with speaking, visual changes, fever, inability to walk, or any other concerning symptoms. Referrals: ENEDELIA HOPKINS MD [Primary Care Provider] - Follow up as needed
--- NOTE | 2017-07-04 20:33 | RADIOLOGY REPORT (SQ) ---
EXAM DESCRIPTION: CT HEAD WITHOUT COMPLETED DATE/TIME: 07/04/2017 7:47 pm REASON FOR STUDY: dizzy, loss of balance COMPARISON: None. TECHNIQUE: Axial images acquired through the brain without intravenous contrast. Images reviewed wi th bone, brain and subdural windows. Images stored on PACS. All CT scanners at this facility use dose modulation, iterative reconstruction, and/or weight based d osing when appropriate to reduce radiation dose to as low as reasonably achievable (ALARA). [facility]: Dose Right [facility]: CareDose [facility]: Dose Right [facility]: Teradose 4D [facility]: Smart [email or web address] RADIATION DOSE: CT Rad equipment meets quality standard of care and radiation dose reduction techniq ues were employed. CTDIvol: 64.6 mGy. DLP: 1163 mGy-cm. mGy. LIMITATIONS: None. FINDINGS: VENTRICLES: Prominent. CEREBRUM: No masses. No hemorrhage. No midline shift. Areas of low density in the white matter mos t likely due to chronic micro-vascular ischemic change. No evidence for acute infarction. CEREBELLUM: No masses. No hemorrhage. No alteration of density. No evidence for acute infarction. EXTRAAXIAL SPACES: Mild age-related involutional change. No fluid collections. No masses. ORBITS AND GLOBE: No intra- or extraconal masses. Normal contour of globe without masses. CALVARIUM: No fracture. PARANASAL SINUSES: No fluid or mucosal thickening. SOFT TISSUES: No mass or hematoma. OTHER: No other significant finding. IMPRESSION: MILD CHRONIC CHANGES OF ATROPHY AND MICROVASCULAR ISCHEMIA. NO ACUTE PROCESS. EVIDENCE OF ACUTE STROKE: NO. TECHNICAL DOCUMENTATION: JOB ID: [id number] Quality ID # [id number]: Final reports with documentation of one or more dose reduction techniques (e.g., Au tomated exposure control, adjustment of the mA and/or kV according to patient size, use of iterative reconstruction technique) 2010 [employer]- All Rights Reserved
--- NOTE | 2017-07-04 20:44 | RADIOLOGY REPORT (SQ) ---
EXAM DESCRIPTION: CHEST SINGLE VIEW COMPLETED DATE/TIME: 07/04/2017 8:00 pm REASON FOR STUDY: possible CVA workup COMPARISON: None. EXAM PARAMETERS: NUMBER OF VIEWS: One view. TECHNIQUE: Single frontal radiographic view of the chest acquired. RADIATION DOSE: NA LIMITATIONS: None. FINDINGS: LUNGS AND PLEURA: Likely linear scarring at the left lung base. Increased bibasilar lung markings are present. No focal consolidation. No large pleural effusion. No pneumothorax. MEDIASTINUM AND HILAR STRUCTURES: No masses. Contour normal. HEART AND VASCULAR STRUCTURES: Heart normal in size. Normal vasculature. BONES: No acute findings. HARDWARE: None in the chest. OTHER: No other significant finding. IMPRESSION: Bibasilar lung markings are nonspecific and may represent chronic lung disease. Infecti ous etiology is not excluded. TECHNICAL DOCUMENTATION: JOB ID: [id number] [employer]- All Rights Reserved
[2017-07-04 21:41] VITALS: BP 145/79
--- NOTE | 2017-07-04 22:17 | EKG REPORT ---
SEVERITY:- BORDERLINE ECG - SINUS RHYTHM BORDERLINE T ABNORMALITIES, INFERIOR LEADS : Confirmed by: Garland Ferguson 04-Jul-2017 22:17:07
== END 2017-07-04 21:50 | disposition home or self-care (01) ==
LOC: ER 15:06
DX: R42 Dizziness and giddiness (principal); E78.00 Pure hypercholesterolemia, unspecified; I10 Essential (primary) hypertension; E11.9 Type 2 diabetes mellitus without complications; I25.2 Old myocardial infarction
CPT/HCPCS: 36415; 70450; 71045; 80048; 84484; 85025; 93005; 93010; 99285

== ENCOUNTER 2020-04-06 17:00 | Inpatient (IN) | payer MEDICARE, BC, OTHER ==
[2020-04-06] MEDS ORDERED: NORMAL SALINE 1000 ML 1,000 ML IV ONE (17:36)
--- NOTE | 2020-04-06 17:43 | ER Document Report ---
ED Respiratory Problem - General Chief Complaint: Shortness Of Breath Stated Complaint: SHORTNESS OF BREATH Time Seen by Provider: 04/06/20 17:35 Primary Care Provider: ENEDELIA HOPKINS MD [Primary Care Provider] - Follow up as needed Mode of Arrival: Medic Information source: Patient Notes: 69-year-old man history of diabetes mellitus, tested positive for the co ronavirus 19 on 04/02/2020. He now presents to the ER complaining of shortness of breath and a pressure sensation in his mid chest area. EMS was called patient was found to have an O2 sat of 75% on room air. He was placed on oxygen with an improvement of the O2 sat to the 90s. Patient was also noted to have a rapid and irregular heartbeat which intermittently revealed some slowing episodes. Patient states that he feels he is getting sicker by the day and presently not on any medications except for diabetes. TRAVEL OUTSIDE OF THE [place] IN LAST 30 DAYS: No - Related Data Allergies/Adverse Reactions: No Known Allergies Allergy (Verified 08/27/16 17:15) Past Medical History - Social History Smoking Status: Never Smoker Frequency of alcohol use: None Drug Abuse: None Family History: Reviewed & Not Pertinent - Past Medical History Cardiac Medical History: Reports: Hx Heart Attack - 2008-Mild, Hx Hypercholesterolemia - since 1981, takes meds, Hx Hypertension - since 1981, takes meds Denies: Hx Atrial Fibrillation, Hx Congestive Heart Failure, Hx Coronary Artery Disease, Hx Peripheral Vascular Disease, Hx Pulmonary Embolism, Hx Heart Murmur Pulmonary Medical History: Reports: Hx Pneumonia - 2006? Denies: Hx Asthma, Hx Bronchitis, Hx COPD, Hx Respiratory Failure, Hx Sleep Apnea, Hx Tuberculosis Endocrine Medical History: Reports: Hx Diabetes Mellitus Type 2. Denies: Hx Graves' Disease, Hx Hyperthyroidism, Hx Hypothyroidism Renal/ Medical History: Reports: Hx Benign Prostatic Hyperplasia. Denies: Hx End Stage Renal Disease, Hx Kidney Stones, Hx Peritoneal Dialysis Malignancy Medical History: Denies Hx Lung Cancer GI Medical History: Reports: Hx Gastroesophageal Reflux Disease. Denies: Hx Crohn's Disease, Hx Hiatal Hernia, Hx Irritable Bowel, Hx Liver Failure, Hx Pancreatitis, Hx Ulcer Musculoskeletal Medical History: Reports Hx Arthritis, Denies Hx Fibromyalgia, Denies Hx Muscular Dystrophy, Denies Hx Systemic Lupus Erythematosus Traumatic Medical History: Denies: Hx Fractures Past Surgical History: Reports: Hx Herniorrhaphy - 1975 Inguinal, Hx Orthopedic Surgery - bilateral knees; L knee. Denies: Hx Appendectomy, Hx Bowel Surgery, Hx Cholecystectomy, Hx Colostomy, Hx Coronary Artery Bypass Graft, Hx Gastric Bypass Surgery, Hx Pacemaker, Hx Tonsillectomy - Immunizations Hx Diphtheria, Pertussis, Tetanus Vaccination: Yes Hx Pneumococcal Vaccination: 03/15/17 Review of Systems - Review of Systems Notes: Constitutional: + Chills, + weakness HENT: Negative for sore throat. Eyes: Negative for visual changes. Cardiovascular: +chest pain Respiratory: + Shortness of breath. Gastrointestinal: Negative for abdominal pain, vomiting or diarrhea. Genitourinary: Negative for dysuria. Musculoskeletal: + Myalgia Skin: Negative for rash. Neurological: Negative for headaches, weakness or numbness. 10 point ROS negative except as marked above and in HPI. Physical Exam - Vital signs Vitals: Pulse Ox 75 L 04/06/20 17:02 - Notes Notes: PHYSICAL EXAMINATION: Physical Exam: General: Ill-appearing 69-year-old man in moderate distress secondary to junior rtness of breath and chest pressure. HEENT: NC/AT, pupils equal round and reactive to light, MM moist,nares clear, oropharynx clear, airway patent Neck: supple, no adenopathy, no masses. Good range of motion Lungs: Coarse breath sounds, mild wheezing CVS: Regular rate and rhythm no murmur gallop or rub Abdomen: Soft, active, nontender, no masses, no hepatosplenomegaly Ext: No edema, clubbing or cyanosis. Neuro: Alert and responsive, moving all 4 extremities on command, cranial nerves intact, no focal findings Skin: Intact no open lesions, no rash PSYCH: Normal mood, normal affect. Course - Vital Signs Vital signs: Temp Pulse Resp BP Pulse Ox 99.4 F 26 H 115/85 94 04/06/20 17:24 04/06/20 20:01 04/06/20 20:01 04/06/20 20:01 - Laboratory Result Diagrams: 04/06/20 17:10 04/06/20 17:10 Laboratory results interpreted by me: 04/06/20 04/06/20 04/06/20 17:10 17:10 17:54 RDW 14.4 H Sodium 132.8 L Glucose 203 H Calcium 8.3 L Creatine Kinase 191 H Albumin 3.4 L Urine Protein 100 H Urine Glucose (UA) 50 H Urine Urobilinogen 4.0 H - Diagnostic Test Radiology reviewed: Image reviewed, Reports reviewed Radiology results interpreted by me: 04/06/20 20:00 Chest X-Ray 04/06/20 17:25 IMPRESSION: CARDIAC ENLARGEMENT. VASCULAR CONGESTION. Superimposed possible peripheral interstitial lung disease. Chest/Abdomen CTA 04/06/20 17:37 IMPRESSION: 1. There is no pulmonary embolus. There is no aortic aneurysm or dissection. 2. Chronic pulmonary fibrosis and bronchiectasis. 3. Cannot exclude multicentric pneumonia, possibly an atypical infectious/ inflammatory process. 4. Questionable thickening of the wall the colon versus mere nondistention. Correlate for inflammatory bowel disease. - EKG Interpretation by Me Rhythm: A.Fib - EKG interpreted by Dr. Mercado: Atrial fibrillation with variable rate 82-110, QT interval 352, nonspecific T wave abnormality no acute ST or T wave abnormalities, no ischemic findings, compared to EKG dated 07/04/2017 sinus bradycardia is now atrial fibrillation and no other significant abnormalities are seen. Interpretation: Atrial fibrillation nonspecific T wave abnormality. Discharge - Discharge Clinical Impression: Pulmonary fibrosis, Low O2 saturation Atrial fibrillation Qualifiers: Atrial fibrillation type: unspecified Qualified Code(s): I48.91 - Unspecified atrial fibrillation Pneumonia Qualifiers: Pneumonia type: due to unspecified organism Laterality: bilateral Lung location: unspecified part of lung Qualified Code(s): J18.9 - Pneumonia, unspecified organism Condition: Good Disposition: ADMITTED INPATIENT Admitting Provider: Dr Moseley Unit Admitted: IMCU Referrals: ENEDELIA HOPKINS MD [Primary Care Provider] - Follow up as needed
--- NOTE | 2020-04-06 18:08 | RADIOLOGY REPORT (SQ) ---
EXAM DESCRIPTION: CHEST SINGLE VIEW IMAGES COMPLETED DATE/TIME: 04/06/2020 5:49 pm REASON FOR STUDY: sob COMPARISON: None. NUMBER OF VIEWS: One view. TECHNIQUE: Single frontal radiographic view of the chest acquired. LIMITATIONS: None. FINDINGS: LUNGS AND PLEURA: Possible peripheral interstitial lung disease. MEDIASTINUM AND HILAR STRUCTURES: No masses or contour abnormality. HEART AND VASCULATURE: Cardiac enlargement. Vascular congestion. BONES: No acute findings. HARDWARE: None in the chest. OTHER: No other significant finding. IMPRESSION: CARDIAC ENLARGEMENT. VASCULAR CONGESTION. Superimposed possible peripheral interstitia l lung disease. TECHNICAL DOCUMENTATION: JOB ID: [id number] 2010 [employer]- All Rights Reserved Reading location - IP/workstation name: [email or web address]
[2020-04-06 18:24] LABS: ABSOLUTE LYMPHOCYTES (AUTO) 0.8 10^3/uL (0.5-4.7); ABSOLUTE MONOCYTES (AUTO) 0.6 10^3/uL (0.1-1.4); ABSOLUTE NEUT (AUTO) 3.9 10^3/uL (1.7-8.2); BASOPHILS % (AUTO) 0.2 % (0-2); EOSINOPHILS % (AUTO) 0.1 % (0-6); HEMATOCRIT 40.9 % (37.9-51.0); LYMPHOCYTES % (AUTO) 15.3 % (13-45); MEAN CORPUSCULAR HEMOGLOBIN 29.7 pg (27.0-33.4); MEAN CORPUSCULAR HGB CONC 34.2 g/dL (32.0-36.0); MEAN CORPUSCULAR VOLUME 87 fl (80-97); MONOCYTES % (AUTO) 10.7 % (3-13); PLATELET COUNT 233 10^3/uL (150-450); RED BLOOD COUNT 4.71 10^6/uL (4.35-5.55); RED CELL DISTRIBUTION WIDTH 14.4 % (11.5-14.0); SEGMENTED NEUTROPHILS % (AUTO) 73.7 % (42-78); TOTAL CELLS COUNTED % (AUTO) 100 %; WHITE BLOOD COUNT 5.3 10^3/uL (4.0-10.5)
[2020-04-06 18:28] LABS: ALBUMIN 3.4 g/dL (3.5-5.0); ALKALINE PHOSPHATASE 81 U/L (38-126); ANION GAP 10 (5-19); ASPARTATE AMINO TRANSFERASE 47 U/L (17-59); BILIRUBIN,DIRECT 0.4 mg/dL (0.0-0.4); BILIRUBIN,TOTAL 1.1 mg/dL (0.2-1.3); BLOOD UREA NITROGEN 15 mg/dL (7-20); CALCIUM 8.3 mg/dL (8.4-10.2); CARBON DIOXIDE 24 mmol/L (22-30); CHLORIDE 99 mmol/L (98-107); CREATINE KINASE 191 U/L (55-170); GLUCOSE 203 mg/dL (75-110); POTASSIUM 4.5 mmol/L (3.6-5.0); TOTAL PROTEIN 6.6 g/dL (6.3-8.2)
[2020-04-06 18:29] LABS: APPEARANCE,URINE SLIGHTLY-CLOUDY; BILIRUBIN,URINE NEGATIVE (NEGATIVE); COLOR,URINE YELLOW; GLUCOSE, URINE 50 mg/dL (NEGATIVE); KETONES,URINE NEGATIVE (NEGATIVE); LEUKOCYTE ESTERASE,URINE NEGATIVE (NEGATIVE); NITRITE,URINE NEGATIVE (NEGATIVE); PROTEIN,URINE 100 mg/dL (NEGATIVE); URINE SPECIFIC GRAVITY 1.019
[2020-04-06 18:36] LABS: CREATINE KINASE MB 0.66 ng/mL (<4.55)
[2020-04-06 18:38] LABS: TROPONIN I < 0.012 ng/mL
--- NOTE | 2020-04-06 19:22 | RADIOLOGY REPORT (SQ) ---
EXAM DESCRIPTION: CTA CHEST IMAGES COMPLETED DATE/TIME: 04/06/2020 7:01 pm REASON FOR STUDY: Chest pain COMPARISON: None. TECHNIQUE: CT scan of the chest performed using helical scanning technique with dynamic intravenous contrast injection. Images reviewed with lung, soft tissue and bone windows. Reconstructed coronal and sagittal MPR images reviewed. Additional 3 dimensional post-processing performed to develop Maximal Intensity Projection images (ID P). All images stored on PACS. All CT scanners at this facility use dose modulation, iterative reconstruction, and/or weight based d osing when appropriate to reduce radiation dose to as low as reasonably achievable (ALARA). [facility]: Dose Right [facility]: CareDose [facility]: Dose Right [facility]: Teradose 4D [facility]: [employer] CONTRAST TYPE AND DOSE: contrast/concentration: Isovue 350.00 mmol/ml; Total Contrast Delivered: 65. 0 ml; Total Saline Delivered: 80.0 ml Contrast bolus adequate for pulmonary arteries and aorta. RENAL FUNCTION: BUN 15 creatinine 0.84 RADIATION DOSE: CT Rad equipment meets quality standard of care and radiation dose reduction techniq ues were employed. CTDIvol: 19.8 - 21.7 mGy. DLP: 799 mGy-cm. . LIMITATIONS: None. FINDINGS: LUNGS AND PLEURA: Extensive reticular changes peripherally in the upper lobes and more dif fusely in the lingula, middle lobe, and lower lobes. There appears to be bronchiectasis in the lower lobes. Ground-glass infiltrates in the lingula and lower lobes. AORTA AND GREAT VESSELS: No aneurysm. No dissection. HEART: No pericardial effusion. Moderate to marked coronary artery calcifications. PULMONARY ARTERIES: No emboli visualized in the main pulmonary arteries or the segmental branches. HILAR AND MEDIASTINAL STRUCTURES: No identified masses or abnormal nodes. HARDWARE: None in the chest. UPPER ABDOMEN: Questionable thickening of the wall of the colon versus mere nondistention. THYROID AND OTHER SOFT TISSUES: No masses. No adenopathy. BONES: No acute or significant finding. 3D MIPS: Confirm above findings. OTHER: No other significant finding. IMPRESSION: 1. There is no pulmonary embolus. There is no aortic aneurysm or dissection. 2. Chronic pulmonary fibrosis and bronchiectasis. 3. Cannot exclude multicentric pneumonia, possibly an atypical infectious/ inflammatory process. 4. Questionable thickening of the wall the colon versus mere nondistention. Correlate for inflammat ory bowel disease. COMMENT: Quality ID # [id number]: Final reports with documentation of one or more dose reduction techniques (e.g., Automated exposure control, adjustment of the mA and/or kV according to patient size, use of iterative reconstruction technique) TECHNICAL DOCUMENTATION: JOB ID: [id number] 2010 [employer]- All Rights Reserved Reading location - IP/workstation name: [email or web address]
[2020-04-06] MEDS ORDERED: AZITHROMYCIN 250 MG TABLET PO ONE (20:13)
[2020-04-06] MEDS ORDERED: IPRATROPIUM/ALBUTEROL 0.5-2.5 MG/3 ML AMPUL NEB ONE (20:14)
[2020-04-06] MEDS ORDERED: METHYLPREDNISOLONE INJ 125 MG/2 ML SDV IV ONE (20:15)
[2020-04-06] MEDS: CEFTRIAXONE 1 GM/D5W RTU 1 GM/50 ML RTUPB IV SCH (20:45)
[2020-04-06] MEDS ORDERED: ACETAMINOPHEN 325 MG TABLET PO PRN (21:05)
[2020-04-06] MEDS ORDERED: NORMAL SALINE 1000 ML 1,000 ML IV PRN (21:05)
[2020-04-06] MEDS ORDERED: ALBUTEROL SULFATE HFA (90 MCG/PUFF) 8 GM MDI IH PRN (21:43)
[2020-04-06] MEDS ORDERED: GLUCAGON,HUMAN RECOMB 1 MG INJ IM PRN (21:44)
[2020-04-06] MEDS ORDERED: DEXTROSE 40% GEL 15 GM TUBE PO PRN ×2 (21:44)
[2020-04-06] MEDS ORDERED: DEXTROSE 50%-WATER 25 GM/50 ML DISP.SYRIN IV PRN ×2 (21:44)
[2020-04-06 21:51] LABS: C-REACTIVE PROTEIN 68.1 mg/L (<10.0)
[2020-04-06] MEDS ORDERED: REMDESIVIR (EUA) 200 MG in NORMAL SALINE 250 ML IV ONE (22:00)
[2020-04-06] MEDS ORDERED: INSULIN REG, HUMAN 100 UNIT/ML 3 ML VIAL (PYX) SUBCUT SCH (22:00)
[2020-04-06 22:03] LABS: INTERNATIONAL RATION (INR) 1.11; PARTIAL THROMBOPLASTIN TIME 29.6 SEC (23.5-35.8); PROTHROMBIN TIME 14.5 SEC (11.4-15.4)
[2020-04-06] MEDS: FAMOTIDINE 20 MG TABLET PO SCH (22:16)
[2020-04-06] MEDS: DEXAMETHASONE SOD PHOS INJ 10 MG/1 ML VIAL IV SCH (22:17)
[2020-04-06 22:22] LABS: D-DIMER 4.73 ug/mL (0.00-0.50)
--- NOTE | 2020-04-06 22:26 | PDOC H&P ---
History of Present Illness Admission Date/PCP: 04/06/20 21:08 ENEDELIA HOPKINS MD Patient complains of: Shortness of breath History of Present Illness: CLAIRE CABEZAS is a 69 year old male with a history of hypertension, diabetes, and hyperlipidemia who presents with a progressive worsening of shortness of breath for the past 2 days. Patient reports that he tested positive for COVID- 19 on 04/02/2020 and was self isolating and symptomatically managing himself at home but 2 days back he started feeling shortness of breath and over the course of this time it got worse and he presented to ER. Associated with this he also reports a dry cough but denies chest pain, palpitation, dizziness, fever, chills, body aches or joint pain. He had 3 episodes of loose stool a day before but he states that he has not had any bowel movement since this morning. On arr ival at the ED patient was found to be saturating mid 80s on room air and was placed on intranasal oxygen after which his saturation improved to mid 90s. Past Medical History Cardiac Medical History: Reports: Myocardial Infarction - 2008-Mild, Hyperlipidema - since 1981, takes meds, Hypertension - since 1981, takes meds Denies: Atrial Fibrillation, Congestive Heart Failure, Coronary Artery Disease, Peripheral Vascular Disease, Pulmonary Embolism, Heart Murmur Pulmonary Medical History: Reports: Pneumonia - 2006? Denies: Asthma, Bronchitis, Chronic Obstructive Pulmonary Disease (COPD), Respiratory Failure, Sleep Apnea, Tuberculosis Endocrine Medical History: Reports: Diabetes Mellitus Type 2 Denies: Hyperthyroidism, Hypothyroidism Renal/ Medical History: Denies: End Stage Renal Disease Malignancy Medical History: Denies: Lung Cancer GI Medical History: Reports: Gastroesophageal Reflux Disease Denies: Crohn's Disease, Hiatal Hernia Musculoskeltal Medical History: Reports: Arthritis Denies: Fibromyalgia Past Surgical History Past Surgical History: Reports: Herniorrhaphy - 1974 Inguinal, Orthopedic Surgery - bilateral knees; L knee Denies: Appendectomy, Cholecystectomy, Colostomy, Coronary Artery Bypass Graft, Gastric Bypass Surgery, Pacemaker, Tonsillectomy Social History Information Source: Patient Lives with: Family Smoking Status: Never Smoker Electronic Cigarette use?: No Frequency of Alcohol Use: None Hx Recreational Drug Use: No Hx Prescription Drug Abuse: No - Advance Directive Resuscitation Status: Full Code Family History Family History: Reviewed & Not Pertinent Parental Family History Reviewed: Yes Children Family History Reviewed: Yes Sibling(s) Family History Reviewed.: Yes Medication/Allergy Home Medications: Atorvastatin Calcium [Lipitor 40 mg Tablet] 40 mg PO QPM 08/05/16 Enalapril Maleate [Vasotec] 40 mg PO QAM 08/05/16 Fish Oil/Dha/Epa [Fish Oil 1,200 mg Fish Oil] 1 each PO BID 08/05/16 Glipizide [Glipizide ER] 5 mg PO QAM 08/05/16 Multivitamin [Multivitamins] 1 each PO QAM 08/05/16 Omeprazole 20 mg PO QAM 08/05/16 Oxybutynin Chloride [Ditropan Xl] 15 mg PO QHS 08/05/16 Sitagliptin Phos/Metformin HCl [Janumet 50-1,000 mg Tablet] 1 each PO BID 08/05/16 Oxycodone HCl [Oxy-Ir 5 mg Tablet] 5 mg PO Q6HP PRN #0 tablet 08/20/16 Rivaroxaban [Xarelto 10 mg Tablet] 10 mg PO QHS #0 tablet 08/20/16 Allergies/Adverse Reactions: No Known Allergies Allergy (Verified 08/27/16 17:15) Review of Systems Constitutional: PRESENT: as per HPI Eyes: ABSENT: visual disturbances Ears: ABSENT: hearing changes Nose, Mouth, and Throat: ABSENT: as per HPI, headache(s), mouth pain, sore throat, vertigo, other Cardiovascular: PRESENT: as per HPI Respiratory: PRESENT: as per HPI Gastrointestinal: PRESENT: as per HPI Genitourinary: ABSENT: dysuria, hematuria Musculoskeletal: ABSENT: joint swelling Integumentary: ABSENT: rash, wounds Neurological: ABSENT: abnormal gait, abnormal speech, confusion, dizziness, focal weakness, syncope Psychiatric: ABSENT: anxiety, depression, homidical ideation, suicidal ideation Endocrine: ABSENT: cold intolerance, heat intolerance, polydipsia, polyuria Hematologic/Lymphatic: ABSENT: easy bleeding, easy bruising Physical Exam Vital Signs: Temp Pulse Resp BP Pulse Ox 99.4 F 26 H 115/85 94 04/06/20 17:24 04/06/20 20:01 04/06/20 20:01 04/06/20 20:01 Intake & Output 04/05/20 04/06/20 04/07/20 06:59 06:59 06:59 Intake Total 1050 Balance 1050 Weight 90.718 kg Additional comments: GENERAL APPEARANCE: Patient is in mild acute respiratory distress, alert and oriented x4 HEENT: Normocephalic and atraumatic. No scleral icterus. Moist oral mucosa NECK: Supple. Trachea is midline. No evidence of thyroid enlargement. No lymphadenopathy. No JVD CHEST: Symmetric. Nontender to palpation. LUNGS: Has coarse crackles bilaterally on posterior lower lung lange, no wheezing HEART: Irregularly irregular rhythm, with normal S1 and S2. No murmurs, gallops, or rubs. ABDOMEN: Soft, normoactive bowel sounds, no tenderness, rebound or rigidity. No organomegaly detected No CVA tenderness EXTREMITIES: No cyanosis, clubbing, or edema. MUSCULOSKELETAL: No deformity, atrophy or swelling noted PSYCHIATRIC: Recent and remote memory is intact. Appropriate mood and affect. SKIN: Warm, dry, and well perfused. No lesions or rashes are noted. NEUROLOGIC: No focal sensory or motor deficits are noted. Results Laboratory Results: 04/06/20 17:10 04/06/20 17:10 04/06/20 04/06/20 04/06/20 17:10 17:10 17:54 WBC 5.3 RBC 4.71 Hgb 14.0 Hct 40.9 MCV 87 MCH 29.7 MCHC 34.2 RDW 14.4 H Plt Count 233 Seg Neutrophils % 73.7 Sodium 132.8 L Potassium 4.5 Chloride 99 Carbon Dioxide 24 Anion Gap 10 BUN 15 Creatinine 0.84 Est GFR ( Amer) > 60 Glucose 203 H Lactic Acid Calcium 8.3 L Total Bilirubin 1.1 AST 47 Alkaline Phosphatase 81 Total Protein 6.6 Albumin 3.4 L Urine Color YELLOW Urine Appearance SLIGHTLY-CLOUDY Urine pH 6.0 Ur Specific [place] 1.019 Urine Protein 100 H Urine Glucose (UA) 50 H Urine Ketones NEGATIVE Urine Blood NEGATIVE Urine Nitrite NEGATIVE Ur Leukocyte Esterase NEGATIVE Urine WBC (Auto) 1 Urine RBC (Auto) 0 04/06/20 20:35 WBC RBC Hgb Hct MCV MCH MCHC RDW Plt Count Seg Neutrophils % Sodium Potassium Chloride Carbon Dioxide Anion Gap BUN Creatinine Est GFR ( Amer) Glucose Lactic Acid 1.2 Calcium Total Bilirubin AST Alkaline Phosphatase Total Protein Albumin Urine Color Urine Appearance Urine pH Ur Specific [place] Urine Protein Urine Glucose (UA) Urine Ketones Urine Blood Urine Nitrite Ur Leukocyte Esterase Urine WBC (Auto) Urine RBC (Auto) 04/06/20 04/06/20 17:10 17:10 Creatine Kinase 191 H CK-MB (CK-2) 0.66 Troponin I < 0.012 Impressions: Chest X-Ray 04/06/20 17:25 IMPRESSION: CARDIAC ENLARGEMENT. VASCULAR CONGESTION. Superimposed possible peripheral interstitial lung disease. Chest/Abdomen CTA 04/06/20 17:37 IMPRESSION: 1. There is no pulmonary embolus. There is no aortic aneurysm or dissection. 2. Chronic pulmonary fibrosis and bronchiectasis. 3. Cannot exclude multicentric pneumonia, possibly an atypical infectious/ inflammatory process. 4. Questionable thickening of the wall the colon versus mere nondistention. Correlate for inflammatory bowel disease. Assessment and Plan - Diagnosis (1) Acute respiratory failure with hypoxia Is this a current diagnosis for this admission?: Yes Plan: Patient has a confirmed COVID-19 infection CTA chest suggests possible multifocal pneumonia On arrival oxygen saturation was mid 80s Currently saturating > 94% on 2 L intranasal oxygen Continue intranasal oxygen and titrate to maintain>94% oxygen saturation Continue treating underlying cause, which is COVID-19 multifocal pneumonia (2) COVID-19 virus infection Is this a current diagnosis for this admission?: Yes Plan: Patient presented in acute hypoxic respiratory failure Currently saturating well on 2 L intranasal oxygen Ordered ferritin, CRP, LDH, CK levels Started him on remdesivir Gave convalescent plasma Zinc, vitamin D, vitamin C supplements Symptomatically manage fever (3) Multifocal pneumonia Is this a current diagnosis for this admission?: Yes Plan: CTA chest showed no PE but was concerning for multifocal pneumonia Started patient on ceftriaxone and azithromycin Follow-up with blood culture Continue intranasal oxygen (4) Atrial fibrillation Qualifiers: Atrial fibrillation type: unspecified Qualified Code(s): I48.91 - Unspecified atrial fibrillation Is this a current diagnosis for this admission?: Yes Plan: Newly diagnosed, patient denies any prior history Has Xarelto on his home medication list but patient denies taking it ever Currently is rate controlled, heart rate ranging in 80s and 90s Likely precipitated by acute infection We will continue to monitor on telemetry Has a [id number] score of 3 and may need anticoagulation if persistent (5) Pulmonary fibrosis Is this a current diagnosis for this admission?: Yes Plan: CT chest shows chronic fibrotic pulmonary changes Patient denies shortness of breath at baseline May benefit from PFT as outpatient on discharge (6) Diabetes Qualifiers: Diabetes mellitus type: type 2 Is this a current diagnosis for this admission?: Yes Plan: Blood sugar on this presentation 203 Held his home medications Placed him on sliding scale insulin Acute check, hypoglycemia protocol - Time Time Spent with patient: 35 or more minutes Total Critical Time (Minutes): 45 Medications reviewed and adjusted accordingly: Yes Anticipated Discharge Disposition: Home, Self Care Anticipated Discharge Timeframe: within 72 hours - Inpatient Certification Based on my medical assessment, after consideration of the patient's comorbidities, presenting symptoms, or acuity I expect that the services needed warrant INPATIENT care.: Yes I certify that my determination is in accordance with my understanding of Medicare's requirements for reasonable and necessary INPATIENT services [42 CFR 412.3e].: Yes Medical Necessity: Failure to Improve With Outpatient Therapy, Need Close Monitoring Due to Risk of Patient Decompensation, Need For Continuous Telemetry Monitoring, Need for IV Antibiotics Post Hospital Care: D/C or Transfer Summary
[2020-04-07] MEDS ORDERED: RINGERS SOLUTION,LACTATED 1,000 ML IV ONE (03:30)
--- NOTE | 2020-04-07 07:02 | EKG REPORT ---
SEVERITY:- ABNORMAL ECG - ATRIAL FIBRILLATION, V-RATE 82-110 NONSPECIFIC T ABNORMALITIES, INFERIOR LEADS : Confirmed by: Gordy Rosas MD 07-Apr-2020 07:00:38
[2020-04-07] MEDS ORDERED: DEXTROSE 40% GEL 15 GM TUBE PO PRN ×2 (07:53)
[2020-04-07] MEDS ORDERED: DEXTROSE 50%-WATER 25 GM/50 ML DISP.SYRIN IV PRN ×2 (07:53)
[2020-04-07] MEDS ORDERED: GLUCAGON,HUMAN RECOMB 1 MG INJ IM PRN (07:53)
[2020-04-07] MEDS: INSULIN LISPRO 100 UNIT/ML 3 ML VIAL SUBCUT SCH ×4 (08:55→21:34)
[2020-04-07] MEDS ORDERED: AZITHROMYCIN INJ 500 MG VIAL IV SCH (10:00)
[2020-04-07] MEDS ORDERED: ENOXAPARIN SODIUM INJ 40 MG/0.4 ML DISP.SYRIN SUBCUT SCH (10:00)
[2020-04-07] MEDS: CEFTRIAXONE 1 GM/D5W RTU 1 GM/50 ML RTUPB IV SCH (11:04)
[2020-04-07] MEDS: CHOLECALCIFEROL (D3) 1,000 UNIT (25 MCG) TABLET PO SCH (11:05)
[2020-04-07] MEDS: ASCORBIC ACID 500 MG TABLET PO SCH ×2 (11:05→17:01)
[2020-04-07] MEDS: FAMOTIDINE 20 MG TABLET PO SCH ×2 (11:05→21:36)
[2020-04-07] MEDS: ZINC SULFATE 220 MG CAPSULE PO SCH (11:05)
[2020-04-07] MEDS: DEXAMETHASONE SOD PHOS INJ 10 MG/1 ML VIAL IV SCH (11:06)
[2020-04-07] MEDS: ENOXAPARIN SODIUM INJ 100 MG/1 ML DISP.SYRIN SUBCUT SCH ×2 (11:06→21:34)
[2020-04-07] MEDS: REMDESIVIR (EUA) 100 MG in NORMAL SALINE 250 ML IV SCH (11:12)
[2020-04-07] MEDS ORDERED: NORMAL SALINE 1000 ML 1,000 ML IV PRN (11:47)
[2020-04-07] MEDS: AZITHROMYCIN 500 MG in DEXTROSE 5%-WATER 250 ML IV SCH (12:42)
--- NOTE | 2020-04-07 15:38 | PDOC PROGRESS REPORT ---
Subjective Progress Note for:: 04/07/20 Subjective:: CLAIRE CABEZAS is a 69 year old male with a history of hypertension, diabetes, and hyperlipidemia who presents with a progressive worsening of shortness of breath for the past 2 days. Patient reports that he tested positive for COVID- 19 on 04/02/2020 and was self isolating and symptomatically managing himself at home but 2 days back he started feeling shortness of breath and over the course of this time it got worse and he presented to ER. Associated with this he also reports a dry cough but denies chest pain, palpitation, dizziness, fever, chills, body aches or joint pain. He had 3 episodes of loose stool a day before but he states that he has not had any bowel movement since this morning. On arrival at the ED patient was found to be saturating mid 80s on room air and was placed on intranasal oxygen after which his saturation improved to mid 90s. 04/07/2020. No acute events overnight. Saw patient this morning sitting in bed on nonrebreather complaining of shortness of breath and diarrhea otherwise denies any fever, chills, nausea, vomiting., Constipation or any urinary symptoms. Reason For Visit: ACUTE HYPOXIC RESPIRATORY FAILURE Physical Exam Vital Signs: Temp Pulse Resp BP Pulse Ox 97.4 F 71 16 114/79 94 04/07/20 11:12 04/07/20 14:00 04/07/20 11:12 04/07/20 11:12 04/07/20 11:12 Intake & Output 04/06/20 04/07/20 04/08/20 06:59 06:59 06:59 Intake Total 2300 1790 Output Total 400 Balance 1900 1790 Weight 96.5 kg General appearance: PRESENT: no acute distress, well-developed, well-nourished Head exam: PRESENT: atraumatic, normocephalic Neck exam: ABSENT: carotid bruit, JVD, lymphadenopathy, thyromegaly Respiratory exam: PRESENT: decreased breath sounds, symmetrical, tachypnea. ABSENT: rales, rhonchi, wheezes GI/Abdominal exam: PRESENT: normal bowel sounds, soft. ABSENT: distended, guarding, mass, organolmegaly, rebound, tenderness Neurological exam: PRESENT: alert, awake, oriented to person, oriented to place, oriented to time, oriented to situation, CN II-XII grossly intact. ABSENT: motor sensory deficit Results Laboratory Results: 04/06/20 17:10 04/06/20 17:10 04/06/20 04/06/20 04/06/20 17:10 17:10 17:54 WBC 5.3 RBC 4.71 Hgb 14.0 Hct 40.9 MCV 87 MCH 29.7 MCHC 34.2 RDW 14.4 H Plt Count 233 Seg Neutrophils % 73.7 Sodium 132.8 L Potassium 4.5 Chloride 99 Carbon Dioxide 24 Anion Gap 10 BUN 15 Creatinine 0.84 Est GFR ( Amer) > 60 Glucose 203 H Lactic Acid Calcium 8.3 L Ferritin Total Bilirubin 1.1 AST 47 Alkaline Phosphatase 81 C-Reactive Protein Total Protein 6.6 Albumin 3.4 L Urine Color YELLOW Urine Appearance SLIGHTLY-CLOUDY Urine pH 6.0 Ur Specific [place] 1.019 Urine Protein 100 H Urine Glucose (UA) 50 H Urine Ketones NEGATIVE Urine Blood NEGATIVE Urine Nitrite NEGATIVE Ur Leukocyte Esterase NEGATIVE Urine WBC (Auto) 1 Urine RBC (Auto) 0 Blood Type 04/06/20 04/06/20 04/06/20 20:35 21:10 21:40 WBC RBC Hgb Hct MCV MCH MCHC RDW Plt Count Seg Neutrophils % Sodium Potassium Chloride Carbon Dioxide Anion Gap BUN Creatinine Est GFR ( Amer) Glucose Lactic Acid 1.2 Calcium Ferritin 373.00 Total Bilirubin AST Alkaline Phosphatase C-Reactive Protein 68.1 H Total Protein Albumin Urine Color Urine Appearance Urine pH Ur Specific [place] Urine Protein Urine Glucose (UA) Urine Ketones Urine Blood Urine Nitrite Ur Leukocyte Esterase Urine WBC (Auto) Urine RBC (Auto) Blood Type O POSITIVE 04/06/20 04/07/20 04/07/20 23:14 02:38 08:58 WBC RBC Hgb Hct MCV MCH MCHC RDW Plt Count Seg Neutrophils % Sodium Potassium Chloride Carbon Dioxide Anion Gap BUN Creatinine Est GFR ( Amer) Glucose Lactic Acid 2.0 2.9 H 3.2 H Calcium Ferritin Total Bilirubin AST Alkaline Phosphatase C-Reactive Protein Total Protein Albumin Urine Color Urine Appearance Urine pH Ur Specific [place] Urine Protein Urine Glucose (UA) Urine Ketones Urine Blood Urine Nitrite Ur Leukocyte Esterase Urine WBC (Auto) Urine RBC (Auto) Blood Type 04/06/20 04/06/20 04/06/20 17:10 17:10 21:10 Creatine Kinase 191 H 218 H CK-MB (CK-2) 0.66 Troponin I < 0.012 Impressions: Chest X-Ray 04/06/20 17:25 IMPRESSION: CARDIAC ENLARGEMENT. VASCULAR CONGESTION. Superimposed possible peripheral interstitial lung disease. Chest/Abdomen CTA 04/06/20 17:37 IMPRESSION: 1. There is no pulmonary embolus. There is no aortic aneurysm or dissection. 2. Chronic pulmonary fibrosis and bronchiectasis. 3. Cannot exclude multicentric pneumonia, possibly an atypical infectious/ inflammatory process. 4. Questionable thickening of the wall the colon versus mere nondistention. Correlate for inflammatory bowel disease. Assessment and Plan - Diagnosis (1) Acute respiratory failure with hypoxia Is this a current diagnosis for this admission?: Yes Plan: Patient has a confirmed COVID-19 infection CTA chest suggests possible multifocal pneumonia On arrival oxygen saturation was mid 80s Currently saturating > 94% on 2 L intranasal oxygen Continue intranasal oxygen and titrate to maintain>94% oxygen saturation Continue treating underlying cause, which is COVID-19 multifocal pneumonia (2) Atrial fibrillation Qualifiers: Atrial fibrillation type: paroxysmal Qualified Code(s): I48.0 - Paroxysmal atrial fibrillation Is this a current diagnosis for this admission?: Yes Plan: Newly diagnosed, patient denies any prior history Has Xarelto on his home medication list but patient denies taking it ever Currently is rate controlled, heart rate ranging in 80s and 90s Likely precipitated by acute infection We will continue to monitor on telemetry Has a [id number] score of 3 and may need anticoagulation if persistent (3) COVID-19 virus infection Is this a current diagnosis for this admission?: Yes Plan: Patient presented in acute hypoxic respiratory failure Currently saturating well on 2 L intranasal oxygen Ordered ferritin, CRP, LDH, CK levels Started him on remdesivir Gave convalescent plasma Zinc, vitamin D, vitamin C supplements Symptomatically manage fever (4) Multifocal pneumonia Is this a current diagnosis for this admission?: Yes Plan: CTA chest showed no PE but was concerning for multifocal pneumonia Started patient on ceftriaxone and azithromycin Follow-up with blood culture Continue intranasal oxygen (5) Pulmonary fibrosis Is this a current diagnosis for this admission?: Yes Plan: CT chest shows chronic fibrotic pulmonary changes Patient denies shortness of breath at baseline May benefit from PFT as outpatient on discharge - Time Time Spent with patient: 35 or more minutes Smoking Cessation Education: 3 to 10 minutes Anticipated Discharge Disposition: Home, Self Care Anticipated Discharge Timeframe: within 72 hours
[2020-04-08 05:44] LABS: ABSOLUTE LYMPHOCYTES (AUTO) 0.5 10^3/uL (0.5-4.7); ABSOLUTE MONOCYTES (AUTO) 0.8 10^3/uL (0.1-1.4); ABSOLUTE NEUT (AUTO) 8.8 10^3/uL (1.7-8.2); BASOPHILS % (AUTO) 0.1 % (0-2); HEMATOCRIT 37.8 % (37.9-51.0); HEMOGLOBIN 12.9 g/dL (13.5-17.0); LYMPHOCYTES % (AUTO) 5.2 % (13-45); MEAN CORPUSCULAR HEMOGLOBIN 29.8 pg (27.0-33.4); MEAN CORPUSCULAR HGB CONC 34.2 g/dL (32.0-36.0); MEAN CORPUSCULAR VOLUME 87 fl (80-97); PLATELET COUNT 228 10^3/uL (150-450); RED BLOOD COUNT 4.34 10^6/uL (4.35-5.55); RED CELL DISTRIBUTION WIDTH 14.6 % (11.5-14.0); SEGMENTED NEUTROPHILS % (AUTO) 86.7 % (42-78); TOTAL CELLS COUNTED % (AUTO) 100 %; WHITE BLOOD COUNT 10.2 10^3/uL (4.0-10.5)
[2020-04-08 06:14] LABS: ALBUMIN 2.9 g/dL (3.5-5.0); ALKALINE PHOSPHATASE 84 U/L (38-126); ANION GAP 10 (5-19); ASPARTATE AMINO TRANSFERASE 47 U/L (17-59); BILIRUBIN,DIRECT 0.5 mg/dL (0.0-0.4); BILIRUBIN,TOTAL 0.8 mg/dL (0.2-1.3); BLOOD UREA NITROGEN 18 mg/dL (7-20); CALCIUM 8.1 mg/dL (8.4-10.2); CARBON DIOXIDE 21 mmol/L (22-30); CHLORIDE 107 mmol/L (98-107); GLUCOSE 244 mg/dL (75-110); POTASSIUM 4.5 mmol/L (3.6-5.0); TOTAL PROTEIN 6.2 g/dL (6.3-8.2)
[2020-04-08] MEDS ORDERED: IPRATROPIUM/ALBUTEROL 0.5-2.5 MG/3 ML AMPUL NEB SCH (08:00)
[2020-04-08 08:09] LABS: ARTERIAL BLOOD BASE EXCESS -3.3 mmol/L; ARTERIAL BLOOD FIO2 15L; ARTERIAL BLOOD H2CO3 0.85 mmol/L (1.05-1.35); ARTERIAL BLOOD HCO3 19.4 mmol/L (20-24); ARTERIAL BLOOD O2 SATURATION 98.8 % (94-98); ARTERIAL BLOOD PCO2 28.3 mmHg (35-45); ARTERIAL BLOOD PH 7.45 (7.35-7.45); ARTERIAL BLOOD PO2 129.7 mmHg (80-100); ARTERIAL BLOOD TOTAL CO2 20.2 mmol/L (23-27)
[2020-04-08] MEDS: INSULIN LISPRO 100 UNIT/ML 3 ML VIAL SUBCUT SCH ×4 (08:32→22:11)
--- NOTE | 2020-04-08 08:35 | RADIOLOGY REPORT (SQ) ---
March 2023 EXAM DESCRIPTION: CHEST SINGLE VIEW IMAGES COMPLETED DATE/TIME: 04/08/2020 8:18 am REASON FOR STUDY: SOB COMPARISON: 04/06/2020 EXAM PARAMETERS: NUMBER OF VIEWS: One view. TECHNIQUE: Single frontal radiographic view of the chest acquired. RADIATION DOSE: NA LIMITATIONS: None. FINDINGS: LUNGS AND PLEURA: Peripheral interstitial opacities remain at the lung bases. No pneumoth orax. MEDIASTINUM AND HILAR STRUCTURES: No masses. Contour normal. HEART AND VASCULAR STRUCTURES: Heart enlarged. Vascular congestion. BONES: No acute findings. HARDWARE: None in the chest. OTHER: No other significant finding. IMPRESSION: Vascular congestion. Peripheral interstitial opacities are stable. TECHNICAL DOCUMENTATION: JOB ID: [id number] [employer]- All Rights Reserved Reading location - IP/workstation name: [email or web address]
[2020-04-08] MEDS ORDERED: FUROSEMIDE INJ/PF 20 MG/2 ML SDV IV ONE (09:24)
--- NOTE | 2020-04-08 09:32 | PDOC PROGRESS REPORT ---
Subjective Progress Note for:: 04/08/20 Subjective:: CLAIRE CABEZAS is a 69 year old male with a history of hypertension, diabetes, and hyperlipidemia who presents with a progressive worsening of shortness of breath for the past 2 days. Patient reports that he tested positive for COVID- 19 on 04/02/2020 and was self isolating and symptomatically managing himself at home but 2 days back he started feeling shortness of breath and over the course of this time it got worse and he presented to ER. Associated with this he also reports a dry cough but denies chest pain, palpitation, dizziness, fever, chills, body aches or joint pain. He had 3 episodes of loose stool a day before but he states that he has not had any bowel movement since this morning. On arrival at the ED patient was found to be saturating mid 80s on room air and was placed on intranasal oxygen after which his saturation improved to mid 90s. 04/07/2020. No acute events overnight. Saw patient this morning sitting in bed on nonrebreather complaining of shortness of breath and diarrhea otherwise denies any fever, chills, nausea, vomiting., Constipation or any urinary symptoms. 04/08/2020. No acute events overnight, this morning patient was walking to the restroom and his oxygen dropped to 50s, rapid response was called and patient was evaluated, alert and oriented in no apparent distress, and ABG showed PCO2 of 28 and PO2 of 129.7, and chest x-ray showed peripheral interstitial opacities with vascular congestion. Patient was started on Oxymizer, as needed BiPAP as needed DuoNebs. Otherwise patient denies any fever, chills, nausea, vomiting, chest pain, diarrhea, constipation or any urinary symptoms. Reason For Visit: ACUTE HYPOXIC RESPIRATORY FAILURE Physical Exam Vital Signs: Temp Pulse Resp BP Pulse Ox 97.5 F 80 19 137/84 H 94 04/08/20 03:22 04/08/20 08:23 04/08/20 08:23 04/08/20 08:23 04/08/20 08:41 Intake & Output 04/07/20 04/08/20 04/09/20 06:59 06:59 06:59 Intake Total 2300 2722 Output Total 400 1175 Balance 1900 1547 Weight 96.5 kg 97.1 kg General appearance: PRESENT: mild distress, well-developed, well-nourished Head exam: PRESENT: atraumatic, normocephalic Respiratory exam: PRESENT: clear to auscultation erick, tachypnea. ABSENT: rales, rhonchi, wheezes Cardiovascular exam: PRESENT: RRR. ABSENT: diastolic murmur, rubs, systolic murmur GI/Abdominal exam: PRESENT: normal bowel sounds, soft. ABSENT: distended, guarding, mass, organolmegaly, rebound, tenderness Neurological exam: PRESENT: alert, awake, oriented to person, oriented to place, oriented to time, oriented to situation, CN II-XII grossly intact. ABSENT: motor sensory deficit Results Laboratory Results: 04/08/20 04:50 04/08/20 04:50 04/06/20 04/07/20 04/08/20 21:40 08:58 04:50 WBC 10.2 RBC 4.34 L Hgb 12.9 L Hct 37.8 L MCV 87 MCH 29.8 MCHC 34.2 RDW 14.6 H Plt Count 228 Seg Neutrophils % 86.7 H Carbonic Acid HCO3/H2CO3 Ratio ABG pH ABG pCO2 ABG pO2 ABG HCO3 ABG O2 Saturation ABG Base Excess FiO2 Sodium Potassium Chloride Carbon Dioxide Anion Gap BUN Creatinine Est GFR ( Amer) Glucose Lactic Acid 3.2 H Calcium Magnesium Total Bilirubin AST Alkaline Phosphatase Total Protein Albumin Blood Type O POSITIVE 04/08/20 04/08/20 04:50 07:45 WBC RBC Hgb Hct MCV MCH MCHC RDW Plt Count Seg Neutrophils % Carbonic Acid 0.85 L HCO3/H2CO3 Ratio 22:1 ABG pH 7.45 ABG pCO2 28.3 L ABG pO2 129.7 H ABG HCO3 19.4 L ABG O2 Saturation 98.8 H ABG Base Excess -3.3 FiO2 15L Sodium 138.1 Potassium 4.5 Chloride 107 Carbon Dioxide 21 L Anion Gap 10 BUN 18 Creatinine 0.62 Est GFR ( Amer) > 60 Glucose 244 H Lactic Acid Calcium 8.1 L Magnesium 2.0 Total Bilirubin 0.8 AST 47 Alkaline Phosphatase 84 Total Protein 6.2 L Albumin 2.9 L Blood Type 04/06/20 04/06/20 04/06/20 17:10 17:10 21:10 Creatine Kinase 191 H 218 H CK-MB (CK-2) 0.66 Troponin I < 0.012 Impressions: Chest/Abdomen CTA 04/06/20 17:37 IMPRESSION: 1. There is no pulmonary embolus. There is no aortic aneurysm or dissection. 2. Chronic pulmonary fibrosis and bronchiectasis. 3. Cannot exclude multicentric pneumonia, possibly an atypical infectious/ inflammatory process. 4. Questionable thickening of the wall the colon versus mere nondistention. Correlate for inflammatory bowel disease. Chest X-Ray 04/08/20 00:00 IMPRESSION: Vascular congestion. Peripheral interstitial opacities are stable. Assessment and Plan - Diagnosis (1) Acute respiratory failure with hypoxia Is this a current diagnosis for this admission?: Yes Plan: Noted to be hypoxic on exertion disease, ABG shows PO2 WNL. Repeat chest x-ray shows vascular congestion and peripheral opacities. Patient has a confirmed COVID-19 infection CTA chest on admission suggests possible multifocal pneumonia On arrival oxygen saturation was mid 80s Status post effervescent plasma transfusion. SPO2 WNL on Oxymizer 15 L/min. Day 2 of empiric IV antibiotics. Day 2 of IV azithromycin. Day 2 of IV ceftriaxone. Day 2 of IV remdesivir. Day 2 of p.o. dexamethasone. Day 2 of therapeutic dose Lovenox. Continue empiric IV antibiotics, antivirals, steroids, LABA, LABA, ICS, flutter valve, incentive spirometry, duo nebs, BiPAP, vitamin C, vitamin D, zinc sulfate, melatonin. (2) Atrial fibrillation Qualifiers: Atrial fibrillation type: paroxysmal Qualified Code(s): I48.0 - Paroxysmal atrial fibrillation Is this a current diagnosis for this admission?: Yes Plan: Newly diagnosed paroxysmal A. fib. Newly diagnosed, patient denies any prior history Has Xarelto on his home medication list but patient denies taking it ever Currently is rate controlled, heart rate ranging in 80s and 90s Likely precipitated by acute infection Has a [id number] score of 3 and may need anticoagulation if persistent Currently on therapeutic Lovenox for underlying Covid. We will consult cardiology for further recommendation. (3) COVID-19 virus infection Is this a current diagnosis for this admission?: Yes Plan: Plan as per #1. (4) Multifocal pneumonia Is this a current diagnosis for this admission?: Yes Plan: Likely community-acquired due to gram-positive's including Streptococcus pneumonia, or COVID-19 pneumonia. Plan as per #1. (5) Pulmonary fibrosis Is this a current diagnosis for this admission?: Yes Plan: CT chest shows chronic fibrotic pulmonary changes Patient denies shortness of breath at baseline May benefit from PFT as outpatient on discharge Outpatient PCP and pulmonology follow-up. (6) Diabetes type 2, controlled Qualifiers: Diabetes mellitus penitentiary insulin use: without penitentiary use Diabetes mellitus complication status: without complication Qualified Code(s): E11.9 - Type 2 diabetes mellitus without complications Is this a current diagnosis for this admission?: Yes Plan: Uncontrolled most likely due to steroids for COVID-19 infection. Hemoglobin A1c 8.0%. Medications are glipizide and Metformin. Hold oral antihypoglycemics. Basal, sliding scale and prandial insulin. Accu-Chek,, hypoglycemia protocol. Outpatient PCP follow-up. Resume home meds upon discharge. - Time Time Spent with patient: 35 or more minutes Medications reviewed and adjusted accordingly: Yes Anticipated Discharge Disposition: Home, Self Care Anticipated Discharge Timeframe: within 48 hours
[2020-04-08] MEDS: CEFTRIAXONE 1 GM/D5W RTU 1 GM/50 ML RTUPB IV SCH ×2 (09:41→21:45)
[2020-04-08] MEDS: AZITHROMYCIN 500 MG in DEXTROSE 5%-WATER 250 ML IV SCH (09:42)
[2020-04-08] MEDS: ZINC SULFATE 220 MG CAPSULE PO SCH (09:42)
[2020-04-08] MEDS: ASCORBIC ACID 500 MG TABLET PO SCH ×2 (09:42→17:05)
[2020-04-08] MEDS: ENOXAPARIN SODIUM INJ 100 MG/1 ML DISP.SYRIN SUBCUT SCH ×2 (09:42→22:11)
[2020-04-08] MEDS: DEXAMETHASONE SOD PHOS INJ 10 MG/1 ML VIAL IV SCH (09:43)
[2020-04-08] MEDS: FAMOTIDINE 20 MG TABLET PO SCH ×2 (09:43→22:11)
[2020-04-08] MEDS: CHOLECALCIFEROL (D3) 1,000 UNIT (25 MCG) TABLET PO SCH (09:43)
[2020-04-08] MEDS ORDERED: ONDANSETRON HCL INJ/PF 4 MG/2 ML SDV ONE (10:02)
[2020-04-08] MEDS ORDERED: ONDANSETRON HCL INJ/PF 4 MG/2 ML SDV IV PRN (10:18)
[2020-04-08] MEDS: REMDESIVIR (EUA) 100 MG in NORMAL SALINE 250 ML IV SCH (10:37)
[2020-04-08] MEDS: IPRATROPIUM/ALBUTEROL 0.5-2.5 MG/3 ML AMPUL NEB PRN ×2 (14:03→20:18)
[2020-04-08] MEDS ORDERED: INSULIN GLARGINE,HUM.REC.ANLOG 1,000 UNIT/10 ML VIAL (PYX) SUBCUT ONE (22:23)
[2020-04-08] MEDS: INSULIN GLARGINE,HUM.REC.ANLOG 1,000 UNIT/10 ML VIAL SUBCUT SCH (22:26)
[2020-04-09 05:54] LABS: APPEARANCE,URINE CLEAR; BILIRUBIN,URINE NEGATIVE (NEGATIVE); COLOR,URINE YELLOW; GLUCOSE, URINE >=500 mg/dL (NEGATIVE); KETONES,URINE NEGATIVE (NEGATIVE); LEUKOCYTE ESTERASE,URINE NEGATIVE (NEGATIVE); NITRITE,URINE NEGATIVE (NEGATIVE); PROTEIN,URINE NEGATIVE (NEGATIVE)
[2020-04-09 06:42] LABS: HEMATOCRIT 34.7 % (37.9-51.0); HEMOGLOBIN 12.1 g/dL (13.5-17.0); MEAN CORPUSCULAR HGB CONC 34.9 g/dL (32.0-36.0); MEAN CORPUSCULAR VOLUME 86 fl (80-97); PLATELET COUNT 254 10^3/uL (150-450); RED BLOOD COUNT 4.04 10^6/uL (4.35-5.55); RED CELL DISTRIBUTION WIDTH 14.8 % (11.5-14.0); WHITE BLOOD COUNT 13.3 10^3/uL (4.0-10.5)
[2020-04-09 07:12] LABS: ALBUMIN 2.7 g/dL (3.5-5.0); ALKALINE PHOSPHATASE 101 U/L (38-126); ANION GAP 6 (5-19); ASPARTATE AMINO TRANSFERASE 40 U/L (17-59); BILIRUBIN,DIRECT 0.3 mg/dL (0.0-0.4); BILIRUBIN,TOTAL 0.8 mg/dL (0.2-1.3); BLOOD UREA NITROGEN 20 mg/dL (7-20); CALCIUM 8.2 mg/dL (8.4-10.2); CARBON DIOXIDE 25 mmol/L (22-30); CHLORIDE 107 mmol/L (98-107); GLUCOSE 212 mg/dL (75-110); POTASSIUM 4.5 mmol/L (3.6-5.0); TOTAL PROTEIN 5.6 g/dL (6.3-8.2)
[2020-04-09] MEDS: IPRATROPIUM/ALBUTEROL 0.5-2.5 MG/3 ML AMPUL NEB PRN (07:47)
[2020-04-09] MEDS: INSULIN LISPRO 100 UNIT/ML 3 ML VIAL SUBCUT SCH ×4 (08:11→22:33)
[2020-04-09] MEDS: AZITHROMYCIN 500 MG in DEXTROSE 5%-WATER 250 ML IV SCH (10:10)
[2020-04-09] MEDS: CEFTRIAXONE 1 GM/D5W RTU 1 GM/50 ML RTUPB IV SCH (10:11)
[2020-04-09] MEDS: ENOXAPARIN SODIUM INJ 100 MG/1 ML DISP.SYRIN SUBCUT SCH ×2 (10:11→22:32)
[2020-04-09] MEDS: REMDESIVIR (EUA) 100 MG in NORMAL SALINE 250 ML IV SCH (10:11)
[2020-04-09] MEDS: ZINC SULFATE 220 MG CAPSULE PO SCH (10:12)
[2020-04-09] MEDS: ASCORBIC ACID 500 MG TABLET PO SCH ×2 (10:12→17:06)
[2020-04-09] MEDS: CHOLECALCIFEROL (D3) 1,000 UNIT (25 MCG) TABLET PO SCH (10:12)
[2020-04-09] MEDS: FAMOTIDINE 20 MG TABLET PO SCH ×2 (10:13→22:32)
[2020-04-09] MEDS: DEXAMETHASONE SOD PHOS INJ 10 MG/1 ML VIAL IV SCH (10:13)
[2020-04-09] MEDS ORDERED: GUAIFENESIN SYRP 200 MG/10 ML UDC PO PRN (11:05)
[2020-04-09] MEDS: MORPHINE SULFATE 10 MG/ML INJ IV PRN (11:16)
--- NOTE | 2020-04-09 13:05 | PDOC PROGRESS REPORT ---
Subjective Progress Note for:: 04/09/20 Subjective:: CLAIRE CABEZAS is a 69 year old male with a history of hypertension, diabetes, and hyperlipidemia who presents with a progressive worsening of shortness of breath for the past 2 days. Patient reports that he tested positive for COVID- 19 on 04/02/2020 and was self isolating and symptomatically managing himself at home but 2 days back he started feeling shortness of breath and over the course of this time it got worse and he presented to ER. Associated with this he also reports a dry cough but denies chest pain, palpitation, dizziness, fever, chills, body aches or joint pain. He had 3 episodes of loose stool a day before but he states that he has not had any bowel movement since this morning. On arrival at the ED patient was found to be saturating mid 80s on room air and was placed on intranasal oxygen after which his saturation improved to mid 90s. 04/07/2020. No acute events overnight. Saw patient this morning sitting in bed on nonrebreather complaining of shortness of breath and diarrhea otherwise denies any fever, chills, nausea, vomiting., Constipation or any urinary symptoms. 04/08/2020. No acute events overnight, this morning patient was walking to the restroom and his oxygen dropped to 50s, rapid response was called and patient was evaluated, alert and oriented in no apparent distress, and ABG showed PCO2 of 28 and PO2 of 129.7, and chest x-ray showed peripheral interstitial opacities with vascular congestion. Patient was started on Oxymizer, as needed BiPAP as needed DuoNebs. Otherwise patient denies any fever, chills, nausea, vomiting, chest pain, diarrhea, constipation or any urinary symptoms. 04/09/2020. No acute events overnight. Patient oxygen demand going up, currently on 100% BiPAP saturating WNL, patient is still alert and oriented, complaining of anxiety and noticed some specks of blood when he coughing. D enies any fever, chills, nausea, vomiting, diarrhea. Laboratory markers dropping. Reason For Visit: ACUTE HYPOXIC RESPIRATORY FAILURE Physical Exam Vital Signs: Temp Pulse Resp BP Pulse Ox 98.2 F 70 18 116/73 95 04/09/20 11:41 04/09/20 11:41 04/09/20 12:06 04/09/20 11:41 04/09/20 12:06 Intake & Output 04/08/20 04/09/20 04/10/20 06:59 06:59 06:59 Intake Total 2722 2445 350 Output Total 1175 1125 450 Balance 1547 1320 -100 Weight 97.1 kg 96.9 kg 96.9 kg General appearance: PRESENT: no acute distress, well-developed, well-nourished, other - Moderate respiratory scale, on BiPAP. Head exam: PRESENT: atraumatic, normocephalic Respiratory exam: PRESENT: accessory muscle use, decreased breath sounds, symmetrical, tachypnea. ABSENT: rales, rhonchi, wheezes Cardiovascular exam: PRESENT: RRR. ABSENT: diastolic murmur, rubs, systolic murmur GI/Abdominal exam: PRESENT: normal bowel sounds, soft. ABSENT: distended, guarding, mass, organolmegaly, rebound, tenderness Neurological exam: PRESENT: alert, awake, oriented to person, oriented to place, oriented to time, oriented to situation, CN II-XII grossly intact. ABSENT: motor sensory deficit Results Laboratory Results: 04/09/20 06:20 04/09/20 06:20 04/09/20 04/09/20 04/09/20 05:30 06:20 06:20 WBC 13.3 H RBC 4.04 L Hgb 12.1 L Hct 34.7 L MCV 86 MCH 30.0 MCHC 34.9 RDW 14.8 H Plt Count 254 Sodium 137.8 Potassium 4.5 Chloride 107 Carbon Dioxide 25 Anion Gap 6 BUN 20 Creatinine 0.62 Est GFR ( Amer) > 60 Glucose 212 H Calcium 8.2 L Magnesium 2.2 Total Bilirubin 0.8 AST 40 Alkaline Phosphatase 101 Total Protein 5.6 L Albumin 2.7 L Urine Color YELLOW Urine Appearance CLEAR Urine pH 6.0 Ur Specific [place] 1.030 Urine Protein NEGATIVE Urine Glucose (UA) >=500 H Urine Ketones NEGATIVE Urine Blood NEGATIVE Urine Nitrite NEGATIVE Ur Leukocyte Esterase NEGATIVE Urine WBC (Auto) 0 Urine RBC (Auto) 0 04/06/20 04/06/20 04/06/20 17:10 17:10 21:10 Creatine Kinase 191 H 218 H CK-MB (CK-2) 0.66 Troponin I < 0.012 Impressions: Chest/Abdomen CTA 04/06/20 17:37 IMPRESSION: 1. There is no pulmonary embolus. There is no aortic aneurysm or dissection. 2. Chronic pulmonary fibrosis and bronchiectasis. 3. Cannot exclude multicentric pneumonia, possibly an atypical infectious/ inflammatory process. 4. Questionable thickening of the wall the colon versus mere nondistention. Correlate for inflammatory bowel disease. Chest X-Ray 04/08/20 00:00 IMPRESSION: Vascular congestion. Peripheral interstitial opacities are stable. Assessment and Plan - Diagnosis (1) Acute respiratory failure with hypoxia Is this a current diagnosis for this admission?: Yes Plan: Oxygen demand going up. Currently on 100% oxygen on BiPAP saturating WNL. Inflammatory markers dropping. Afebrile. WBC WNL. Noted to be hypoxic on exertion disease, ABG shows PO2 WNL. Repeat chest x-ray shows vascular congestion and peripheral opacities. Patient has a confirmed COVID-19 infection CTA chest on admission suggests possible multifocal pneumonia On arrival oxygen saturation was mid 80s Status post effervescent plasma transfusion. Day 3 of empiric IV antibiotics. Day 3 of IV azithromycin. Day 3 of IV ceftriaxone. Day 3 of IV remdesivir. Day 3 of p.o. dexamethasone. Day 3 of therapeutic dose Lovenox. Continue empiric IV antibiotics, antivirals, steroids, LABA, LABA, ICS, flutter valve, incentive spirometry, duo nebs, BiPAP, vitamin C, vitamin D, zinc sulfate, melatonin. (2) Atrial fibrillation Qualifiers: Atrial fibrillation type: paroxysmal Qualified Code(s): I48.0 - Paroxysmal atrial fibrillation Is this a current diagnosis for this admission?: Yes Plan: Newly diagnosed paroxysmal A. fib. Currently is rate controlled, heart rate ranging in 80s and 90s Likely precipitated by acute infection Has a [id number] score of 3 and may need anticoagulation if persistent Currently on therapeutic Lovenox for underlying Covid. We will consult cardiology for further recommendation. (3) COVID-19 virus infection Is this a current diagnosis for this admission?: Yes Plan: Plan as per #1. (4) Multifocal pneumonia Is this a current diagnosis for this admission?: Yes Plan: Likely community-acquired due to gram-positive's including Streptococcus pneumonia, or COVID-19 pneumonia. Plan as per #1. (5) Pulmonary fibrosis Is this a current diagnosis for this admission?: Yes Plan: CT chest shows chronic fibrotic pulmonary changes Patient denies shortness of breath at baseline May benefit from PFT as outpatient on discharge Outpatient PCP and pulmonology follow-up. (6) Diabetes type 2, controlled Qualifiers: Diabetes mellitus buttermaker continuous churn insulin use: without buttermaker continuous churn use Diabetes mellitus complication status: without complication Qualified Code(s): E11.9 - Type 2 diabetes mellitus without complications Is this a current diagnosis for this admission?: Yes Plan: Uncontrolled most likely due to steroids for COVID-19 infection. Hemoglobin A1c 8.0%. Medications are glipizide and Metformin. Hold oral antihypoglycemics. Basal, sliding scale and prandial insulin. Accu-Chek,, hypoglycemia protocol. Outpatient PCP follow-up. Resume home meds upon discharge. - Time Time Spent with patient: 35 or more minutes Medications reviewed and adjusted accordingly: Yes Anticipated Discharge Disposition: Home with Home Health Anticipated Discharge Timeframe: within 72 hours
[2020-04-09] MEDS: INSULIN GLARGINE,HUM.REC.ANLOG 1,000 UNIT/10 ML VIAL SUBCUT SCH (22:32)
[2020-04-09] MEDS: GUAIFENESIN 600 MG TABLET.SA PO SCH (22:32)
[2020-04-10 05:37] LABS: HEMATOCRIT 32.9 % (37.9-51.0); HEMOGLOBIN 11.4 g/dL (13.5-17.0); MEAN CORPUSCULAR HEMOGLOBIN 29.9 pg (27.0-33.4); MEAN CORPUSCULAR HGB CONC 34.7 g/dL (32.0-36.0); MEAN CORPUSCULAR VOLUME 86 fl (80-97); PLATELET COUNT 237 10^3/uL (150-450); RED BLOOD COUNT 3.83 10^6/uL (4.35-5.55); RED CELL DISTRIBUTION WIDTH 14.7 % (11.5-14.0); WHITE BLOOD COUNT 11.7 10^3/uL (4.0-10.5)
[2020-04-10 05:57] LABS: ALBUMIN 2.5 g/dL (3.5-5.0); ALKALINE PHOSPHATASE 123 U/L (38-126); ANION GAP 9 (5-19); ASPARTATE AMINO TRANSFERASE 42 U/L (17-59); BILIRUBIN,DIRECT 0.2 mg/dL (0.0-0.4); BILIRUBIN,TOTAL 0.9 mg/dL (0.2-1.3); BLOOD UREA NITROGEN 18 mg/dL (7-20); CALCIUM 8.1 mg/dL (8.4-10.2); CARBON DIOXIDE 22 mmol/L (22-30); CHLORIDE 106 mmol/L (98-107); GLUCOSE 194 mg/dL (75-110); POTASSIUM 4.4 mmol/L (3.6-5.0); TOTAL PROTEIN 5.7 g/dL (6.3-8.2)
[2020-04-10 06:18] LABS: INTERNATIONAL RATION (INR) 1.54; PROTHROMBIN TIME 18.7 SEC (11.4-15.4)
[2020-04-10 06:38] LABS: ARTERIAL BLOOD BASE EXCESS 0.7 mmol/L; ARTERIAL BLOOD FIO2 100%; ARTERIAL BLOOD H2CO3 1.08 mmol/L (1.05-1.35); ARTERIAL BLOOD HCO3 24.4 mmol/L (20-24); ARTERIAL BLOOD O2 SATURATION 84.6 % (94-98); ARTERIAL BLOOD PCO2 35.9 mmHg (35-45); ARTERIAL BLOOD PH 7.45 (7.35-7.45); ARTERIAL BLOOD PO2 46.4 mmHg (80-100); ARTERIAL BLOOD TOTAL CO2 25.5 mmol/L (23-27)
[2020-04-10] MEDS: INSULIN LISPRO 100 UNIT/ML 3 ML VIAL SUBCUT SCH ×4 (09:21→22:36)
[2020-04-10] MEDS: ASCORBIC ACID 500 MG TABLET PO SCH ×2 (09:45→17:14)
[2020-04-10] MEDS: REMDESIVIR (EUA) 100 MG in NORMAL SALINE 250 ML IV SCH (09:45)
[2020-04-10] MEDS: ZINC SULFATE 220 MG CAPSULE PO SCH (09:45)
[2020-04-10] MEDS: FAMOTIDINE 20 MG TABLET PO SCH ×2 (09:45→22:37)
[2020-04-10] MEDS: GUAIFENESIN 600 MG TABLET.SA PO SCH ×2 (09:45→22:37)
[2020-04-10] MEDS: CEFTRIAXONE 1 GM/D5W RTU 1 GM/50 ML RTUPB IV SCH (09:45)
[2020-04-10] MEDS: CHOLECALCIFEROL (D3) 1,000 UNIT (25 MCG) TABLET PO SCH (09:45)
[2020-04-10] MEDS: AZITHROMYCIN 250 MG TABLET PO SCH (09:45)
[2020-04-10] MEDS: ENOXAPARIN SODIUM INJ 100 MG/1 ML DISP.SYRIN SUBCUT SCH ×2 (09:45→22:37)
[2020-04-10] MEDS: DEXAMETHASONE SOD PHOS INJ 10 MG/1 ML VIAL IV SCH (09:46)
--- NOTE | 2020-04-10 16:06 | PDOC PROGRESS REPORT ---
Subjective Subjective:: Per Previous Physician: "CLAIRE CABEZAS is a 69 year old male with a history of hypertension, diabetes, and hyperlipidemia who presents with a progressive worsening of shortness of breath for the past 2 days. Patient reports that he tested positive for COVID- 19 on 04/02/2020 and was self isolating and symptomatically managing himself at home but 2 days back he started feeling shortness of breath and over the course of this time it got worse and he presented to ER. Associated with this he also reports a dry cough but denies chest pain, palpitation, dizziness, fever, chills, body aches or joint pain. He had 3 episodes of loose stool a day before but he states that he has not had any bowel movement since this morning. On arrival at the ED patient was found to be saturating mid 80s on room air and was placed on intranasal oxygen after which his saturation improved to mid 90s. 04/07/2020. No acute events overnight. Saw patient this morning sitting in bed on nonrebreather complaining of shortness of breath and diarrhea otherwise denies any fever, chills, nausea, vomiting., Constipation or any urinary sy mptoms. 04/08/2020. No acute events overnight, this morning patient was walking to the restroom and his oxygen dropped to 50s, rapid response was called and patient was evaluated, alert and oriented in no apparent distress, and ABG showed PCO2 of 28 and PO2 of 129.7, and chest x-ray showed peripheral interstitial opacities with vascular congestion. Patient was started on Oxymizer, as needed BiPAP as needed DuoNebs. Otherwise patient denies any fever, chills, nausea, vomiting, chest pain, diarrhea, constipation or any urinary symptoms. 04/09/2020. No acute events overnight. Patient oxygen demand going up, currently on 100% BiPAP saturating WNL, patient is still alert and oriented, complaining of anxiety and noticed some specks of blood when he coughing. Denies any fever, chills, nausea, vomiting, diarrhea. Laboratory markers dropping." 04/10/2020 Patient continues to require 100% oxygen on BiPAP, clearly still in acute COVID- 19 respiratory failure. He has finished remdesivir as of today. Blood culture negative. He is continued on azithromycin/ceftriaxone to complete course. White blood cells are lower. Discussed with nursing will need to closely monitor him for further respiratory decline as he may eventually require mechanical ventilation. He is alert and speaking clearly today. He has no new complaints other than shortness of breath. Reason For Visit: ACUTE HYPOXIC RESPIRATORY FAILURE Physical Exam Vital Signs: Temp Pulse Resp BP Pulse Ox 98.1 F 92 16 103/54 L 93 04/10/20 07:31 04/10/20 13:49 04/10/20 10:30 04/10/20 04:09 04/10/20 08:00 Intake & Output 04/09/20 04/10/20 04/11/20 06:59 06:59 06:59 Intake Total 2445 1227 840 Output Total 1125 1200 Balance 1320 27 840 Weight 96.9 kg 99.3 kg 99.3 kg General appearance: PRESENT: no acute distress, well-developed, well-nourished Head exam: PRESENT: atraumatic, normocephalic Eye exam: PRESENT: conjunctiva pink. ABSENT: scleral icterus Mouth exam: PRESENT: moist Respiratory exam: PRESENT: clear to auscultation erick, decreased breath sounds - Diffuse. ABSENT: rales, rhonchi, wheezes Cardiovascular exam: PRESENT: RRR. ABSENT: diastolic murmur, rubs, systolic murmur GI/Abdominal exam: PRESENT: normal bowel sounds, soft. ABSENT: distended, guarding, mass, organolmegaly, rebound, tenderness Rectal exam: PRESENT: deferred Extremities exam: ABSENT: pedal edema Neurological exam: PRESENT: alert, awake, oriented to person, oriented to place, oriented to time, oriented to situation Psychiatric exam: PRESENT: appropriate affect, normal mood Skin exam: PRESENT: dry, intact, warm Results Laboratory Results: 04/10/20 04:50 04/10/20 04:50 04/10/20 04/10/20 04/10/20 04:50 04:50 06:12 WBC 11.7 H RBC 3.83 L Hgb 11.4 L Hct 32.9 L MCV 86 MCH 29.9 MCHC 34.7 RDW 14.7 H Plt Count 237 Carbonic Acid 1.08 HCO3/H2CO3 Ratio 22:1 ABG pH 7.45 ABG pCO2 35.9 ABG pO2 46.4 L ABG HCO3 24.4 H ABG O2 Saturation 84.6 L ABG Base Excess 0.7 FiO2 100% Sodium 136.9 L Potassium 4.4 Chloride 106 Carbon Dioxide 22 Anion Gap 9 BUN 18 Creatinine 0.58 Est GFR ( Amer) > 60 Glucose 194 H Calcium 8.1 L Magnesium 2.0 Total Bilirubin 0.9 AST 42 Alkaline Phosphatase 123 Total Protein 5.7 L Albumin 2.5 L 04/06/20 04/06/20 04/06/20 17:10 17:10 21:10 Creatine Kinase 191 H 218 H CK-MB (CK-2) 0.66 Troponin I < 0.012 Impressions: Chest/Abdomen CTA 04/06/20 17:37 IMPRESSION: 1. There is no pulmonary embolus. There is no aortic aneurysm or dissection. 2. Chronic pulmonary fibrosis and bronchiectasis. 3. Cannot exclude multicentric pneumonia, possibly an atypical infectious/ inflammatory process. 4. Questionable thickening of the wall the colon versus mere nondistention. Correlate for inflammatory bowel disease. Chest X-Ray 04/08/20 00:00 IMPRESSION: Vascular congestion. Peripheral interstitial opacities are stable. Assessment and Plan - Diagnosis (1) Acute respiratory failure with hypoxia Is this a current diagnosis for this admission?: Yes Plan: Per Previous Physician: "Oxygen demand going up. Currently on 100% oxygen on BiPAP saturating WNL. Inflammatory markers dropping. Afebrile. WBC WNL. Noted to be hypoxic on exertion disease, ABG shows PO2 WNL. Repeat chest x-ray shows vascular congestion and peripheral opacities. Patient has a confirmed COVID-19 infection CTA chest on admission suggests possible multifocal pneumonia On arrival oxygen saturation was mid 80s Status post effervescent plasma transfusion. Day 3 of empiric IV antibiotics. Day 3 of IV azithromycin. Day 3 of IV ceftriaxone. Day 3 of IV remdesivir. Day 3 of p.o. dexamethasone. Day 3 of therapeutic dose Lovenox. Continue empiric IV antibiotics, antivirals, steroids, LABA, LABA, ICS, flutter valve, incentive spirometry, duo nebs, BiPAP, vitamin C, vitamin D, zinc sulfate, melatonin." 04/10/2020 All above interventions continue, patient finishes remdesivir today Still requiring 100% O2 on BiPAP Monitor closely for further decline, may need mechanical ventilation and eventually (2) COVID-19 virus infection Is this a current diagnosis for this admission?: Yes Plan: Plan as per #1. (3) Atrial fibrillation Qualifiers: Atrial fibrillation type: paroxysmal Qualified Code(s): I48.0 - Paroxysmal atrial fibrillation Is this a current diagnosis for this admission?: Yes Plan: Per Previous Physician: "Newly diagnosed paroxysmal A. fib. Currently is rate controlled, heart rate ranging in 80s and 90s Likely precipitated by acute infection Has a [id number] score of 3 and may need anticoagulation if persistent Currently on therapeutic Lovenox for underlying Covid. We will consult cardiology for further recommendation." 04/10/2020 A. fib likely precipitated from severe hypoxemia due to COVID-19 I do not see any indication for cardiology consult at this time. It is fine if they would like to see him as the order has already been placed (4) Diabetes type 2, controlled Qualifiers: Diabetes mellitus emergency preparedness manager insulin use: without emergency preparedness manager use Diabetes mellitus complication status: without complication Qualified Code(s): E11.9 - Type 2 diabetes mellitus without complications Is this a current diagnosis for this admission?: Yes Plan: Per Previous Physician: "Uncontrolled most likely due to steroids for COVID-19 infection. Hemoglobin A1c 8.0%. Medications are glipizide and Metformin. Hold oral antihypoglycemics. Basal, sliding scale and prandial insulin. Accu-Chek,, hypoglycemia protocol. Outpatient PCP follow-up. Resume home meds upon discharge." Accu-Chek Correctional insulin Lantus increased (5) Low O2 saturation Is this a current diagnosis for this admission?: Yes (6) Multifocal pneumonia Is this a current diagnosis for this admission?: Yes Plan: Likely due to COVID-19 Antibiotics already started on admission, will continue to complete course of 5 days No obvious evidence of concomitant bacterial infection (7) Pneumonia Qualifiers: Pneumonia type: due to unspecified organism Laterality: bilateral Lung location: unspecified part of lung Qualified Code(s): J18.9 - Pneumonia, unspecified organism Is this a current diagnosis for this admission?: Yes (8) Pulmonary fibrosis Is this a current diagnosis for this admission?: Yes Plan: Per Previous Physician: "CT chest shows chronic fibrotic pulmonary changes Patient denies shortness of breath at baseline May benefit from PFT as outpatient on discharge Outpatient PCP and pulmonology follow-up." May worsen prognosis in the setting of COVID-19 respiratory failure (9) Arthritis of left knee Is this a current diagnosis for this admission?: Yes (10) Diabetes Qualifiers: Diabetes mellitus type: type 2 Is this a current diagnosis for this admission?: Yes - Time Time Spent with patient: 35 or more minutes Medications reviewed and adjusted accordingly: Yes Anticipated Discharge Disposition: [facility] Facility Anticipated Discharge Timeframe: within 72 hours - Inpatient Certification Based on my medical assessment, after consideration of the patient's comorbidities, presenting symptoms, or acuity I expect that the services needed warrant INPATIENT care.: Yes I certify that my determination is in accordance with my understanding of Medicare's requirements for reasonable and necessary INPATIENT services [42 CFR 412.3e].: Yes Medical Necessity: Significant Comorbidiites Make Outpatient Treatment Too Risky, Need Close Monitoring Due to Risk of Patient Decompensation, Need for IV Antibiotics, Risk of Complication if Not Cared For in Hospital, Risk of Diagnosis Which Will Require Inpatient Eval/Care/Monitoring
--- NOTE | 2020-04-10 16:50 | PDOC CONSULTATION ---
Consultation Consult Date: 04/10/20 Attending physician:: LESLI MARTINEZ Provider Consulted: WILLIE FITCH Consult reason:: Atrial fibrillation History of Present Illness Admission Date/PCP: 04/06/20 21:08 ENEDELIA HOPKINS MD Patient complains of: Dyspnea History of Present Illness: CLAIRE CABEZAS is a 69 year old male With the following active problems 1. Systemic hypertension 2. Dyslipidemia 3. Dyslipidemia Patient was admitted to the hospital with worsening hypoxemia. He has been identified as having COVID-19 pneumonia. He was noted to have atrial fibrillation on telemetry without significant symptoms of arrhythmia. For the most part his ventricular rate has been controlled. There is no prior report of arrhythmia. No familial illnesses reported to me. At the time of my evaluation patient does not endorse any chest pain or p alpitations or dizziness. He is on supplemental oxygen. Past Medical History Cardiac Medical History: Reports: Myocardial Infarction - 2008-Mild, Hyperlipidema - since 1981, takes meds, Hypertension - since 1981, takes meds Denies: Atrial Fibrillation, Congestive Heart Failure, Coronary Artery Disease, Peripheral Vascular Disease, Pulmonary Embolism, Heart Murmur Pulmonary Medical History: Reports: Pneumonia - 2006? Denies: Asthma, Bronchitis, Chronic Obstructive Pulmonary Disease (COPD), Respiratory Failure, Sleep Apnea, Tuberculosis Endocrine Medical History: Reports: Diabetes Mellitus Type 2 Denies: Hyperthyroidism, Hypothyroidism Renal/ Medical History: Denies: End Stage Renal Disease Malignancy Medical History: Denies: Lung Cancer GI Medical History: Reports: Gastroesophageal Reflux Disease Denies: Crohn's Disease, Hiatal Hernia Musculoskeltal Medical History: Reports: Arthritis Denies: Fibromyalgia Psychiatric Medical History: Denies: Depression Past Surgical History Past Surgical History: Reports: Herniorrhaphy - 1974 Inguinal, Orthopedic Surgery - bilateral knees; L knee Denies: Appendectomy, Cholecystectomy, Colostomy, Coronary Artery Bypass Graft, Gastric Bypass Surgery, Pacemaker, Tonsillectomy Social History Lives with: Family Smoking Status: Never Smoker Electronic Cigarette use?: No Frequency of Alcohol Use: None Hx Recreational Drug Use: No Drugs: None Hx Prescription Drug Abuse: No - Advance Directive Resuscitation Status: Full Code Family History Family History: Reviewed & Not Pertinent Parental Family History Reviewed: Yes - No familial illnesses reported Children Family History Reviewed: NA Sibling(s) Family History Reviewed.: NA Medication/Allergy Home Medications: Atorvastatin Calcium [Lipitor 40 mg Tablet] 40 mg PO QPM 08/05/16 Enalapril Maleate [Vasotec] 20 mg PO BID 08/05/16 Glipizide [Glipizide ER] 5 mg PO QAM 08/05/16 Omeprazole 20 mg PO QAM 08/05/16 Oxybutynin Chloride [Ditropan Xl] 15 mg PO QHS 08/05/16 Sitagliptin Phos/Metformin HCl [Janumet Xr 50-1,000 mg Tablet] 1 tab PO BID 04/07/20 Allergies/Adverse Reactions: No Known Allergies Allergy (Verified 08/27/16 17:15) Review of Systems Constitutional: PRESENT: as per HPI. ABSENT: anorexia, chills, fatigue, fever(s), headache(s), night sweats, weakness, weight gain, weight loss, other Cardiovascular: ABSENT: as per HPI, chest pain, dyspnea on exertion, edema, orthropnea, palpitations, other Respiratory: PRESENT: cough, dyspnea, hemoptysis Neurological: ABSENT: as per HPI, abnormal gait, abnormal movements, abnormal speech, confusion, convulsions, dizziness, focal weakness, frequent falls, lack of coordination, memory loss, numbness, paresthesias, restless legs, syncope, tingling, tremor(s), vertigo, weakness, other Physical Exam Vital Signs: Temp Pulse Resp BP Pulse Ox 98.1 F 92 16 103/54 L 93 04/10/20 07:31 04/10/20 13:49 04/10/20 10:30 04/10/20 04:09 04/10/20 08:00 Intake & Output 04/09/20 04/10/20 04/11/20 06:59 06:59 06:59 Intake Total 2445 1227 840 Output Total 1125 1200 Balance 1320 27 840 Weight 96.9 kg 99.3 kg 99.3 kg General appearance: PRESENT: cooperative, mild distress, well-developed, well- nourished Head exam: PRESENT: atraumatic, normocephalic Eye exam: PRESENT: conjunctiva pink, EOMI Mouth exam: PRESENT: moist Respiratory exam: PRESENT: decreased breath sounds, symmetrical - Low Pulses: PRESENT: normal radial pulses - Discharge services above. No Rectal exam: PRESENT: deferred Neurological exam: PRESENT: alert, awake Psychiatric exam: PRESENT: anxious Skin exam: PRESENT: dry, intact Results Laboratory Results: 04/10/20 04:50 04/10/20 04:50 04/10/20 04/10/20 04/10/20 04:50 04:50 06:12 WBC 11.7 H RBC 3.83 L Hgb 11.4 L Hct 32.9 L MCV 86 MCH 29.9 MCHC 34.7 RDW 14.7 H Plt Count 237 Carbonic Acid 1.08 HCO3/H2CO3 Ratio 22:1 ABG pH 7.45 ABG pCO2 35.9 ABG pO2 46.4 L ABG HCO3 24.4 H ABG O2 Saturation 84.6 L ABG Base Excess 0.7 FiO2 100% Sodium 136.9 L Potassium 4.4 Chloride 106 Carbon Dioxide 22 Anion Gap 9 BUN 18 Creatinine 0.58 Est GFR ( Amer) > 60 Glucose 194 H Calcium 8.1 L Magnesium 2.0 Total Bilirubin 0.9 AST 42 Alkaline Phosphatase 123 Total Protein 5.7 L Albumin 2.5 L 04/06/20 04/06/20 04/06/20 17:10 17:10 21:10 Creatine Kinase 191 H 218 H CK-MB (CK-2) 0.66 Troponin I < 0.012 EKG Comments: Twelve-lead EKG 04/06/2020. 1801. Independently viewed by me. Atrial fibrillation with controlled ventricular response Low voltage in the limb leads. Nonspecific T wave abnormalities Twelve-lead EKG 07/10/2016. Independently reviewed by me. Sinus bradycardia 52 bpm, normal AV conduction, QTC is 398 ms Chest abdomen CTA 04/06/2020 Chronic pulmonary fibrosis and bronchiectasis There is no pulmonary embolus is multicentric pneumonia Questionable thickening of colon wall 04/06/2020 COVID-19 detected Troponin 04/06/2020 <0.012 Impressions: Chest/Abdomen CTA 04/06/20 17:37 IMPRESSION: 1. There is no pulmonary embolus. There is no aortic aneurysm or dissection. 2. Chronic pulmonary fibrosis and bronchiectasis. 3. Cannot exclude multicentric pneumonia, possibly an atypical infectious/ inflammatory process. 4. Questionable thickening of the wall the colon versus mere nondistention. Correlate for inflammatory bowel disease. Chest X-Ray 04/08/20 00:00 IMPRESSION: Vascular congestion. Peripheral interstitial opacities are stable. Assessment & Plan - Diagnosis (1) Acute respiratory failure with hypoxia Is this a current diagnosis for this admission?: Yes Plan: Acute respiratory failure with hypoxemia in the setting of COVID-19 pneumonia Supportive care. Oxygen (2) Atrial fibrillation Qualifiers: Atrial fibrillation type: paroxysmal Qualified Code(s): I48.0 - Paroxysmal atrial fibrillation Is this a current diagnosis for this admission?: Yes Plan: This is a new finding for this patient Previous EKG available from 2017 demonstrates sinus rhythm This is likely atrial fibrillation in the setting of active pneumonia and infection especially COVID-19 pneumonia. Would recommend supportive care with rate control measures if necessary. Presently patient appears to be rate controlled Given increased risk of embolism and stroke given other risk factors such as hypertension and age as well as diabetes mellitus would recommend systemic anticoagulation Based on clinical course we can pursue RESHMA guided cardioversion I will be preferable for the patient to get through the infection and improve prior to pursuing rhythm respiratory therapy. It is possible that the rhythm could revert to normal with improvement in overall clinical condition. We will check echocardiogram given severe infection and presentation with atrial fibrillation to assess LV function and exclude valvular disease (3) COVID-19 virus infection Is this a current diagnosis for this admission?: Yes Plan: Supportive care
[2020-04-10] MEDS: INSULIN GLARGINE,HUM.REC.ANLOG 1,000 UNIT/10 ML VIAL SUBCUT SCH (22:37)
[2020-04-11 05:42] LABS: HEMATOCRIT 32.7 % (37.9-51.0); HEMOGLOBIN 11.3 g/dL (13.5-17.0); MEAN CORPUSCULAR HEMOGLOBIN 29.5 pg (27.0-33.4); MEAN CORPUSCULAR HGB CONC 34.4 g/dL (32.0-36.0); MEAN CORPUSCULAR VOLUME 86 fl (80-97); PLATELET COUNT 271 10^3/uL (150-450); RED BLOOD COUNT 3.82 10^6/uL (4.35-5.55); RED CELL DISTRIBUTION WIDTH 15.1 % (11.5-14.0)
[2020-04-11] MEDS: INSULIN LISPRO 100 UNIT/ML 3 ML VIAL SUBCUT SCH ×4 (07:49→21:44)
[2020-04-11] MEDS ORDERED: INFLUENZA QUAD (6MOS+) 2020-21 VAC 0.5 ML SYR IM ONE (08:00)
[2020-04-11] MEDS: IPRATROPIUM/ALBUTEROL 0.5-2.5 MG/3 ML AMPUL NEB PRN ×2 (09:33→16:30)
[2020-04-11] MEDS: ASCORBIC ACID 500 MG TABLET PO SCH ×2 (10:05→18:28)
[2020-04-11] MEDS: FAMOTIDINE 20 MG TABLET PO SCH ×2 (10:05→21:42)
[2020-04-11] MEDS: AZITHROMYCIN 250 MG TABLET PO SCH (10:05)
[2020-04-11] MEDS: ENOXAPARIN SODIUM INJ 100 MG/1 ML DISP.SYRIN SUBCUT SCH ×2 (10:05→21:42)
[2020-04-11] MEDS: DEXAMETHASONE SOD PHOS INJ 10 MG/1 ML VIAL IV SCH (10:05)
[2020-04-11] MEDS: ZINC SULFATE 220 MG CAPSULE PO SCH (10:05)
[2020-04-11] MEDS: GUAIFENESIN 600 MG TABLET.SA PO SCH ×2 (10:05→21:42)
[2020-04-11] MEDS: CHOLECALCIFEROL (D3) 1,000 UNIT (25 MCG) TABLET PO SCH (10:05)
[2020-04-11] MEDS: CEFTRIAXONE 1 GM/D5W RTU 1 GM/50 ML RTUPB IV SCH (10:06)
[2020-04-11] MEDS: MORPHINE SULFATE 10 MG/ML INJ IV PRN (11:34)
--- NOTE | 2020-04-11 13:54 | PDOC PROGRESS REPORT ---
Subjective Subjective:: Per Previous Physician: "CLAIRE CABEZAS is a 69 year old male with a history of hypertension, diabetes, and hyperlipidemia who presents with a progressive worsening of shortness of breath for the past 2 days. Patient reports that he tested positive for COVID- 19 on 04/02/2020 and was self isolating and symptomatically managing himself at home but 2 days back he started feeling shortness of breath and over the course of this time it got worse and he presented to ER. Associated with this he also reports a dry cough but denies chest pain, palpitation, dizziness, fever, chills, body aches or joint pain. He had 3 episodes of loose stool a day before but he states that he has not had any bowel movement since this morning. On arrival at the ED patient was found to be saturating mid 80s on room air and was placed on intranasal oxygen after which his saturation improved to mid 90s. 04/07/2020. No acute events overnight. Saw patient this morning sitting in bed on nonrebreather complaining of shortness of breath and diarrhea otherwise denies any fever, chills, nausea, vomiting., Constipation or any urinary sy mptoms. 04/08/2020. No acute events overnight, this morning patient was walking to the restroom and his oxygen dropped to 50s, rapid response was called and patient was evaluated, alert and oriented in no apparent distress, and ABG showed PCO2 of 28 and PO2 of 129.7, and chest x-ray showed peripheral interstitial opacities with vascular congestion. Patient was started on Oxymizer, as needed BiPAP as needed DuoNebs. Otherwise patient denies any fever, chills, nausea, vomiting, chest pain, diarrhea, constipation or any urinary symptoms. 04/09/2020. No acute events overnight. Patient oxygen demand going up, currently on 100% BiPAP saturating WNL, patient is still alert and oriented, complaining of anxiety and noticed some specks of blood when he coughing. Denies any fever, chills, nausea, vomiting, diarrhea. Laboratory markers dropping." 04/10/2020 Patient continues to require 100% oxygen on BiPAP, clearly still in acute COVID- 19 respiratory failure. He has finished remdesivir as of today. Blood culture negative. He is continued on azithromycin/ceftriaxone to complete course. White blood cells are lower. Discussed with nursing will need to closely monitor him for further respiratory decline as he may eventually require mechanical ventilation. He is alert and speaking clearly today. He has no new complaints other than shortness of breath. 04/11/2020 Patient having intermittent episodes of anxiety and mild respiratory distress. Per nursing, patient seems to have anxiety and resultant breathing difficulty when he is watching his pulse oximetry and it starts dropping. I discussed with the patient that he is doing about the same as yesterday. Reviewed labs and vitals. Patient has no new questions or concerns. Reason For Visit: ACUTE HYPOXIC RESPIRATORY FAILURE Physical Exam Vital Signs: Temp Pulse Resp BP Pulse Ox 98.1 F 83 18 114/53 L 91 L 04/11/20 11:11 04/11/20 11:11 04/11/20 11:39 04/11/20 11:11 04/11/20 11:39 Intake & Output 04/10/20 04/11/20 04/12/20 06:59 06:59 06:59 Intake Total 1227 1690 50 Output Total 1200 575 Balance 27 1115 50 Weight 99.3 kg 98.1 kg Exam: General appearance: PRESENT: no acute distress, well-developed, well-nourished, seems mildly anxious but appears stable Head exam: PRESENT: atraumatic, normocephalic Eye exam: PRESENT: conjunctiva pink. ABSENT: scleral icterus Mouth exam: PRESENT: moist Respiratory exam: PRESENT: clear to auscultation erick, decreased breath sounds - Diffuse. ABSENT: rales, rhonchi, wheezes Cardiovascular exam: PRESENT: RRR. ABSENT: diastolic murmur, rubs, systolic murmur GI/Abdominal exam: PRESENT: normal bowel sounds, soft. ABSENT: distended, guar ding, mass, organolmegaly, rebound, tenderness Rectal exam: PRESENT: deferred Extremities exam: ABSENT: pedal edema Neurological exam: PRESENT: alert, awake, oriented to person, oriented to place, oriented to time, oriented to situation Psychiatric exam: PRESENT: appropriate affect, normal mood Skin exam: PRESENT: dry, intact, warm Results Laboratory Results: 04/11/20 04:54 04/10/20 04:50 04/11/20 04:54 WBC 11.0 H RBC 3.82 L Hgb 11.3 L Hct 32.7 L MCV 86 MCH 29.5 MCHC 34.4 RDW 15.1 H Plt Count 271 10/23/20 10/23/20 10/23/20 17:10 17:10 21:10 Creatine Kinase 191 H 218 H CK-MB (CK-2) 0.66 Troponin I < 0.012 Impressions: Chest/Abdomen CTA 04/06/20 17:37 IMPRESSION: 1. There is no pulmonary embolus. There is no aortic aneurysm or dissection. 2. Chronic pulmonary fibrosis and bronchiectasis. 3. Cannot exclude multicentric pneumonia, possibly an atypical infectious/ inflammatory process. 4. Questionable thickening of the wall the colon versus mere nondistention. Correlate for inflammatory bowel disease. Chest X-Ray 04/08/20 00:00 IMPRESSION: Vascular congestion. Peripheral interstitial opacities are stable. Assessment and Plan - Diagnosis (1) Acute respiratory failure with hypoxia Is this a current diagnosis for this admission?: Yes Plan: Per Previous Physician: "Oxygen demand going up. Currently on 100% oxygen on BiPAP saturating WNL. Inflammatory markers dropping. Afebrile. WBC WNL. Noted to be hypoxic on exertion disease, ABG shows PO2 WNL. Repeat chest x-ray shows vascular congestion and peripheral opacities. Patient has a confirmed COVID-19 infection CTA chest on admission suggests possible multifocal pneumonia On arrival oxygen saturation was mid 80s Status post effervescent plasma transfusion. Day 3 of empiric IV antibiotics. Day 3 of IV azithromycin. Day 3 of IV ceftriaxone. Day 3 of IV remdesivir. Day 3 of p.o. dexamethasone. Day 3 of therapeutic dose Lovenox. Continue empiric IV antibiotics, antivirals, steroids, LABA, LABA, ICS, flutter valve, incentive spirometry, duo nebs, BiPAP, vitamin C, vitamin D, zinc sulfate, melatonin." All above interventions continue, finished remdesivir Still requiring 100% O2 on BiPAP Monitor closely for further decline, may need mechanical ventilation and eventually (2) COVID-19 virus infection Is this a current diagnosis for this admission?: Yes Plan: Plan as per #1. (3) Atrial fibrillation Qualifiers: Atrial fibrillation type: paroxysmal Qualified Code(s): I48.0 - Paroxysmal atrial fibrillation Is this a current diagnosis for this admission?: Yes Plan: Per Previous Physician: "Newly diagnosed paroxysmal A. fib. Currently is rate controlled, heart rate ranging in 80s and 90s Likely precipitated by acute infection Has a [id number] score of 3 and may need anticoagulation if persistent Currently on therapeutic Lovenox for underlying Covid. We will consult cardiology for further recommendation." 04/10/2020 A. fib likely precipitated from severe hypoxemia due to COVID-19 Cardiology consulted: Recommended systemic anticoagulation which patient is already receiving and also RESHMA guided cardioversion after he has resolved COVID- 19 pneumonia Echocardiogram (4) Diabetes type 2, controlled Qualifiers: Diabetes mellitus prison insulin use: without prison use Diabetes mellitus complication status: without complication Qualified Code(s): E11.9 - Type 2 diabetes mellitus without complications Is this a current diagnosis for this admission?: Yes (5) Low O2 saturation Is this a current diagnosis for this admission?: Yes (6) Multifocal pneumonia Is this a current diagnosis for this admission?: Yes (7) Pneumonia Qualifiers: Pneumonia type: due to unspecified organism Laterality: bilateral Lung location: unspecified part of lung Qualified Code(s): J18.9 - Pneumonia, unspecified organism Is this a current diagnosis for this admission?: Yes (8) Pulmonary fibrosis Is this a current diagnosis for this admission?: Yes (9) Arthritis of left knee Is this a current diagnosis for this admission?: Yes (10) Diabetes Qualifiers: Diabetes mellitus type: type 2 Is this a current diagnosis for this admission?: Yes - Time Time Spent with patient: 35 or more minutes Medications reviewed and adjusted accordingly: Yes Anticipated Discharge Disposition: Residential Facility Anticipated Discharge Timeframe: within 72 hours - Inpatient Certification Based on my medical assessment, after consideration of the patient's comorbidities, presenting symptoms, or acuity I expect that the services needed warrant INPATIENT care.: Yes I certify that my determination is in accordance with my understanding of Medicare's requirements for reasonable and necessary INPATIENT services [42 CFR 412.3e].: Yes Medical Necessity: Significant Comorbidiites Make Outpatient Treatment Too Risky, Need Close Monitoring Due to Risk of Patient Decompensation, Need for IV Antibiotics, Risk of Complication if Not Cared For in Hospital, Risk of Diagnosis Which Will Require Inpatient Eval/Care/Monitoring
[2020-04-11 17:06] LABS: APPEARANCE,URINE CLEAR; BILIRUBIN,URINE NEGATIVE (NEGATIVE); COLOR,URINE YELLOW; GLUCOSE, URINE >=500 mg/dL (NEGATIVE); KETONES,URINE TRACE mg/dL (NEGATIVE); LEUKOCYTE ESTERASE,URINE NEGATIVE (NEGATIVE); NITRITE,URINE NEGATIVE (NEGATIVE); PROTEIN,URINE NEGATIVE (NEGATIVE); URINE SPECIFIC GRAVITY 1.033
[2020-04-11] MEDS: INSULIN GLARGINE,HUM.REC.ANLOG 1,000 UNIT/10 ML VIAL SUBCUT SCH (21:42)
[2020-04-12] MEDS: MORPHINE SULFATE 10 MG/ML INJ IV PRN ×3 (04:10→21:25)
[2020-04-12] MEDS: INSULIN LISPRO 100 UNIT/ML 3 ML VIAL SUBCUT SCH ×4 (08:31→21:24)
[2020-04-12] MEDS: CEFTRIAXONE 1 GM/D5W RTU 1 GM/50 ML RTUPB IV SCH (10:47)
[2020-04-12] MEDS: CHOLECALCIFEROL (D3) 1,000 UNIT (25 MCG) TABLET PO SCH (10:48)
[2020-04-12] MEDS: GUAIFENESIN 600 MG TABLET.SA PO SCH ×2 (10:48→21:25)
[2020-04-12] MEDS: ZINC SULFATE 220 MG CAPSULE PO SCH (10:48)
[2020-04-12] MEDS: ASCORBIC ACID 500 MG TABLET PO SCH ×2 (10:48→18:09)
[2020-04-12] MEDS: FAMOTIDINE 20 MG TABLET PO SCH ×2 (10:48→21:25)
[2020-04-12] MEDS: DEXAMETHASONE SOD PHOS INJ 10 MG/1 ML VIAL IV SCH (10:49)
[2020-04-12] MEDS: AZITHROMYCIN 250 MG TABLET PO SCH (10:49)
[2020-04-12] MEDS: ENOXAPARIN SODIUM INJ 100 MG/1 ML DISP.SYRIN SUBCUT SCH ×2 (10:49→21:25)
--- NOTE | 2020-04-12 18:38 | PDOC PROGRESS REPORT ---
Subjective Subjective:: Per Previous Physician: "CLAIRE CABEZAS is a 69 year old male with a history of hypertension, diabetes, and hyperlipidemia who presents with a progressive worsening of shortness of breath for the past 2 days. Patient reports that he tested positive for COVID- 19 on 04/02/2020 and was self isolating and symptomatically managing himself at home but 2 days back he started feeling shortness of breath and over the course of this time it got worse and he presented to ER. Associated with this he also reports a dry cough but denies chest pain, palpitation, dizziness, fever, chills, body aches or joint pain. He had 3 episodes of loose stool a day before but he states that he has not had any bowel movement since this morning. On arrival at the ED patient was found to be saturating mid 80s on room air and was placed on intranasal oxygen after which his saturation improved to mid 90s. 04/07/2020. No acute events overnight. Saw patient this morning sitting in bed on nonrebreather complaining of shortness of breath and diarrhea otherwise denies any fever, chills, nausea, vomiting., Constipation or any urinary sy mptoms. 04/08/2020. No acute events overnight, this morning patient was walking to the restroom and his oxygen dropped to 50s, rapid response was called and patient was evaluated, alert and oriented in no apparent distress, and ABG showed PCO2 of 28 and PO2 of 129.7, and chest x-ray showed peripheral interstitial opacities with vascular congestion. Patient was started on Oxymizer, as needed BiPAP as needed DuoNebs. Otherwise patient denies any fever, chills, nausea, vomiting, chest pain, diarrhea, constipation or any urinary symptoms. 04/09/2020. No acute events overnight. Patient oxygen demand going up, currently on 100% BiPAP saturating WNL, patient is still alert and oriented, complaining of anxiety and noticed some specks of blood when he coughing. Denies any fever, chills, nausea, vomiting, diarrhea. Laboratory markers dropping." 04/10/2020 Patient continues to require 100% oxygen on BiPAP, clearly still in acute COVID- 19 respiratory failure. He has finished remdesivir as of today. Blood culture negative. He is continued on azithromycin/ceftriaxone to complete course. White blood cells are lower. Discussed with nursing will need to closely monitor him for further respiratory decline as he may eventually require mechanical ventilation. He is alert and speaking clearly today. He has no new complaints other than shortness of breath. 04/11/2020 Patient having intermittent episodes of anxiety and mild respiratory distress. Per nursing, patient seems to have anxiety and resultant breathing difficulty when he is watching his pulse oximetry and it starts dropping. I discussed with the patient that he is doing about the same as yesterday. Reviewed labs and vitals. Patient has no new questions or concerns. 04/12/2020 Patient still having some intermittent episodes of desaturation whenever he becomes anxious or exerts himself. Patient is being maintained on 60% FiO2 on high flow nasal cannula and intermittently on BiPAP. Per nursing, he has been requiring BiPAP a bit more today. Vitals and labs reviewed and no acute changes today. Patient is continued on all usual COVID-19 treatments. I explained to the patient that a lot of COVID-19 treatment is waiting for his body to clear the infection and the inflammation. Reason For Visit: ACUTE HYPOXIC RESPIRATORY FAILURE Physical Exam Vital Signs: Temp Pulse Resp BP Pulse Ox 98.2 F 85 22 H 115/65 100 04/12/20 11:30 04/12/20 14:00 04/12/20 15:45 04/12/20 11:30 04/12/20 11:30 Intake & Output 04/11/20 04/12/20 04/13/20 06:59 06:59 06:59 Intake Total 1690 150 50 Output Total 575 100 Balance 1115 50 50 Weight 98.1 kg 96.3 kg Exam: General appearance: PRESENT: no acute distress, well-developed, well-nourished, appears calm today Head exam: PRESENT: atraumatic, normocephalic Eye exam: PRESENT: conjunctiva pink. ABSENT: scleral icterus Mouth exam: PRESENT: moist Respiratory exam: PRESENT: clear to auscultation erick, decreased breath sounds - Diffuse. ABSENT: rales, rhonchi, wheezes Cardiovascular exam: PRESENT: RRR. ABSENT: diastolic murmur, rubs, systolic murmur GI/Abdominal exam: PRESENT: normal bowel sounds, soft. ABSENT: distended, guarding, mass, organolmegaly, rebound, tenderness Rectal exam: PRESENT: deferred Extremities exam: ABSENT: pedal edema Neurological exam: PRESENT: alert, awake, oriented to person, oriented to place, oriented to time, oriented to situation Psychiatric exam: PRESENT: appropriate affect, normal mood Skin exam: PRESENT: dry, intact, warm Results Laboratory Results: 04/11/20 04:54 04/10/20 04:50 04/06/20 21:10 Blood Blood Culture - Final NO GROWTH IN 5 DAYS 04/06/20 20:35 Blood Blood Culture - Final NO GROWTH IN 5 DAYS 04/06/20 04/06/20 04/06/20 17:10 17:10 21:10 Creatine Kinase 191 H 218 H CK-MB (CK-2) 0.66 Troponin I < 0.012 Impressions: Chest/Abdomen CTA 04/06/20 17:37 IMPRESSION: 1. There is no pulmonary embolus. There is no aortic aneurysm or dissection. 2. Chronic pulmonary fibrosis and bronchiectasis. 3. Cannot exclude multicentric pneumonia, possibly an atypical infectious/ inflammatory process. 4. Questionable thickening of the wall the colon versus mere nondistention. Correlate for inflammatory bowel disease. Chest X-Ray 04/08/20 00:00 IMPRESSION: Vascular congestion. Peripheral interstitial opacities are stable. Assessment and Plan - Diagnosis (1) Acute respiratory failure with hypoxia Is this a current diagnosis for this admission?: Yes Plan: Per Previous Physician: "Oxygen demand going up. Currently on 100% oxygen on BiPAP saturating WNL. Inflammatory markers dropping. Afebrile. WBC WNL. Noted to be hypoxic on exertion disease, ABG shows PO2 WNL. Repeat chest x-ray shows vascular congestion and peripheral opacities. Patient has a confirmed COVID-19 infection CTA chest on admission suggests possible multifocal pneumonia On arrival oxygen saturation was mid 80s Status post effervescent plasma transfusion. Day 3 of empiric IV antibiotics. Day 3 of IV azithromycin. Day 3 of IV ceftriaxone. Day 3 of IV remdesivir. Day 3 of p.o. dexamethasone. Day 3 of therapeutic dose Lovenox. Continue empiric IV antibiotics, antivirals, steroids, LABA, LABA, ICS, flutter valve, incentive spirometry, duo nebs, BiPAP, vitamin C, vitamin D, zinc sulfate, melatonin." All above interventions continue, finished remdesivir Still requiring 100% O2 on BiPAP Monitor closely for further decline, may need mechanical ventilation and eventually No significant changes for multiple days (2) COVID-19 virus infection Is this a current diagnosis for this admission?: Yes Plan: Plan as per #1. (3) Atrial fibrillation Qualifiers: Atrial fibrillation type: paroxysmal Qualified Code(s): I48.0 - Paroxysmal atrial fibrillation Is this a current diagnosis for this admission?: Yes Plan: Per Previous Physician: "Newly diagnosed paroxysmal A. fib. Currently is rate controlled, heart rate ranging in 80s and 90s Likely precipitated by acute infection Has a [id number] score of 3 and may need anticoagulation if persistent Currently on therapeutic Lovenox for underlying Covid. We will consult cardiology for further recommendation." 04/10/2020 A. fib likely precipitated from severe hypoxemia due to COVID-19 Cardiology consulted: Recommended systemic anticoagulation which patient is already receiving and also RESHMA guided cardioversion after he has resolved COVID- 19 pneumonia Echocardiogram (4) Diabetes type 2, controlled Qualifiers: Diabetes mellitus snf insulin use: without snf use Diabetes mellitus complication status: without complication Qualified Code(s): E11.9 - Type 2 diabetes mellitus without complications Is this a current diagnosis for this admission?: Yes Plan: Per Previous Physician: "Uncontrolled most likely due to steroids for COVID-19 infection. Hemoglobin A1c 8.0%. Medications are glipizide and Metformin. Hold oral antihypoglycemics. Basal, sliding scale and prandial insulin. Accu-Chek,, hypoglycemia protocol. Outpatient PCP follow-up. Resume home meds upon discharge." Accu-Chek Correctional insulin Lantus increased (5) Low O2 saturation Is this a current diagnosis for this admission?: Yes (6) Multifocal pneumonia Is this a current diagnosis for this admission?: Yes (7) Pneumonia Qualifiers: Pneumonia type: due to unspecified organism Laterality: bilateral Lung location: unspecified part of lung Qualified Code(s): J18.9 - Pneumonia, unspecified organism Is this a current diagnosis for this admission?: Yes (8) Pulmonary fibrosis Is this a current diagnosis for this admission?: Yes (9) Arthritis of left knee Is this a current diagnosis for this admission?: Yes (10) Diabetes Qualifiers: Diabetes mellitus type: type 2 Is this a current diagnosis for this admission?: Yes - Time Time Spent with patient: 35 or more minutes Medications reviewed and adjusted accordingly: Yes Anticipated Discharge Disposition: Home with Home Health Anticipated Discharge Timeframe: within 72 hours - Inpatient Certification Based on my medical assessment, after consideration of the patient's comorbidities, presenting symptoms, or acuity I expect that the services needed warrant INPATIENT care.: Yes I certify that my determination is in accordance with my understanding of Medicare's requirements for reasonable and necessary INPATIENT services [42 CFR 412.3e].: Yes Medical Necessity: Significant Comorbidiites Make Outpatient Treatment Too Risky, Need Close Monitoring Due to Risk of Patient Decompensation, Need for IV Antibiotics, Risk of Complication if Not Cared For in Hospital, Risk of Diagnosis Which Will Require Inpatient Eval/Care/Monitoring
[2020-04-12] MEDS: IPRATROPIUM/ALBUTEROL 0.5-2.5 MG/3 ML AMPUL NEB PRN (20:21)
[2020-04-12] MEDS: INSULIN GLARGINE,HUM.REC.ANLOG 1,000 UNIT/10 ML VIAL SUBCUT SCH (21:24)
[2020-04-13 05:36] LABS: HEMATOCRIT 35.7 % (37.9-51.0); HEMOGLOBIN 12.1 g/dL (13.5-17.0); MEAN CORPUSCULAR HEMOGLOBIN 29.5 pg (27.0-33.4); MEAN CORPUSCULAR VOLUME 87 fl (80-97); PLATELET COUNT 315 10^3/uL (150-450); RED BLOOD COUNT 4.11 10^6/uL (4.35-5.55); RED CELL DISTRIBUTION WIDTH 15.2 % (11.5-14.0); WHITE BLOOD COUNT 10.4 10^3/uL (4.0-10.5)
[2020-04-13 06:12] LABS: APPEARANCE,URINE CLEAR; BILIRUBIN,URINE NEGATIVE (NEGATIVE); COLOR,URINE YELLOW; GLUCOSE, URINE >=500 mg/dL (NEGATIVE); KETONES,URINE TRACE mg/dL (NEGATIVE); LEUKOCYTE ESTERASE,URINE NEGATIVE (NEGATIVE); NITRITE,URINE NEGATIVE (NEGATIVE); PROTEIN,URINE NEGATIVE (NEGATIVE); URINE SPECIFIC GRAVITY 1.025
[2020-04-13] MEDS: MORPHINE SULFATE 10 MG/ML INJ IV PRN ×4 (07:35→23:15)
[2020-04-13] MEDS: INSULIN LISPRO 100 UNIT/ML 3 ML VIAL SUBCUT SCH ×6 (09:36→22:00)
[2020-04-13] MEDS: ENOXAPARIN SODIUM INJ 100 MG/1 ML DISP.SYRIN SUBCUT SCH ×2 (09:36→21:49)
[2020-04-13] MEDS: DEXAMETHASONE SOD PHOS INJ 10 MG/1 ML VIAL IV SCH (09:37)
[2020-04-13] MEDS: ZINC SULFATE 220 MG CAPSULE PO SCH (09:38)
[2020-04-13] MEDS: CHOLECALCIFEROL (D3) 1,000 UNIT (25 MCG) TABLET PO SCH (09:38)
[2020-04-13] MEDS: AZITHROMYCIN 250 MG TABLET PO SCH (09:38)
[2020-04-13] MEDS: ASCORBIC ACID 500 MG TABLET PO SCH ×2 (09:38→18:40)
[2020-04-13] MEDS: GUAIFENESIN 600 MG TABLET.SA PO SCH ×2 (09:38→21:49)
[2020-04-13] MEDS: FAMOTIDINE 20 MG TABLET PO SCH ×2 (09:38→21:50)
[2020-04-13] MEDS: CEFTRIAXONE 1 GM/D5W RTU 1 GM/50 ML RTUPB IV SCH (09:39)
--- NOTE | 2020-04-13 13:47 | PDOC PROGRESS REPORT ---
Subjective Progress Note for:: 04/13/20 Subjective:: No adverse events overnight. He was taken off BiPAP this morning and put over to the high flow nasal cannula and were to be put back on BiPAP because he felt like it was smothering him because the flow rate was so high. It was interesting that he did not experience this sensation while on BiPAP. We were able to convince him to try going back on the high flow nasal cannula later on. Reason For Visit: ACUTE HYPOXIC RESPIRATORY FAILURE Physical Exam Vital Signs: Temp Pulse Resp BP Pulse Ox 98.2 F 56 L 18 138/70 H 95 04/13/20 09:07 04/13/20 09:07 04/13/20 09:07 04/13/20 09:07 04/13/20 09:07 Intake & Output 04/12/20 04/13/20 04/14/20 06:59 06:59 06:59 Intake Total 150 1004 50 Output Total 100 1175 Balance 50 -171 50 Weight 96.3 kg 95.4 kg General appearance: PRESENT: no acute distress, well-developed, well-nourished Head exam: PRESENT: atraumatic, normocephalic Respiratory exam: PRESENT: Crackles right lower lobe, decreased breath sounds - Diffuse. ABSENT: rhonchi, wheezes Cardiovascular exam: PRESENT: RRR. ABSENT: diastolic murmur, rubs, systolic murmur GI/Abdominal exam: PRESENT: normal bowel sounds, soft. ABSENT: distended, guarding, mass, organolmegaly, rebound, tenderness Extremities exam: ABSENT: pedal edema Neurological exam: PRESENT: alert, awake, oriented to person, oriented to place, oriented to time, oriented to situation Psychiatric exam: PRESENT: appropriate affect, normal mood Skin exam: PRESENT: dry, intact, warm Results Laboratory Results: 04/13/20 04:44 04/10/20 04:50 04/13/20 04/13/20 04:44 05:47 WBC 10.4 RBC 4.11 L Hgb 12.1 L Hct 35.7 L MCV 87 MCH 29.5 MCHC 34.0 RDW 15.2 H Plt Count 315 Urine Color YELLOW Urine Appearance CLEAR Urine pH 5.0 Ur Specific [place] 1.025 Urine Protein NEGATIVE Urine Glucose (UA) >=500 H Urine Ketones TRACE H Urine Blood NEGATIVE Urine Nitrite NEGATIVE Ur Leukocyte Esterase NEGATIVE Urine WBC (Auto) 1 Urine RBC (Auto) 1 04/06/20 04/06/20 04/06/20 17:10 17:10 21:10 Creatine Kinase 191 H 218 H CK-MB (CK-2) 0.66 Troponin I < 0.012 Impressions: Chest/Abdomen CTA 04/06/20 17:37 IMPRESSION: 1. There is no pulmonary embolus. There is no aortic aneurysm or dissection. 2. Chronic pulmonary fibrosis and bronchiectasis. 3. Cannot exclude multicentric pneumonia, possibly an atypical infectious/ inflammatory process. 4. Questionable thickening of the wall the colon versus mere nondistention. Correlate for inflammatory bowel disease. Chest X-Ray 04/08/20 00:00 IMPRESSION: Vascular congestion. Peripheral interstitial opacities are stable. Assessment and Plan - Diagnosis (1) Acute respiratory failure with hypoxia Is this a current diagnosis for this admission?: Yes (2) COVID-19 virus infection Is this a current diagnosis for this admission?: Yes (3) Atrial fibrillation Qualifiers: Atrial fibrillation type: paroxysmal Qualified Code(s): I48.0 - Paroxysmal atrial fibrillation Is this a current diagnosis for this admission?: Yes (4) Diabetes type 2, controlled Qualifiers: Diabetes mellitus [employer] insulin use: without [employer] use Diabetes mellitus complication status: without complication Qualified Code(s): E11.9 - Type 2 diabetes mellitus without complications Is this a current diagnosis for this admission?: Yes (5) Pneumonia Qualifiers: Pneumonia type: due to unspecified organism Laterality: bilateral Lung location: unspecified part of lung Qualified Code(s): J18.9 - Pneumonia, u nspecified organism Is this a current diagnosis for this admission?: Yes (6) Pulmonary fibrosis Is this a current diagnosis for this admission?: Yes (7) Arthritis of left knee Is this a current diagnosis for this admission?: Yes - Plan Summary Summary: He has completed remdesivir and has been receiving the typical treatments as we know it at this time for this virus in this syndrome. He continues to require high level of oxygen support. We got him off BiPAP today and on to the high flow nasal cannula, hopefully he will progress and we can de-escalate his level of oxygen support. His breath sounds overall really were not very bad. We are keeping a close eye on his blood sugars which are being affected by the steroids. Heart rate is controlled. - Time Time Spent with patient: 15-24 minutes Anticipated Discharge Disposition: Home with Home Health Anticipated Discharge Timeframe: Pending clinical course
[2020-04-13] MEDS ORDERED: INSULIN LISPRO 100 UNIT/ML 3 ML VIAL SUBCUT ONE (18:00)
[2020-04-13] MEDS: IPRATROPIUM/ALBUTEROL 0.5-2.5 MG/3 ML AMPUL NEB PRN (20:08)
[2020-04-13] MEDS ORDERED: LORAZEPAM INJ 2 MG/1 ML VIAL ONE (20:10)
[2020-04-13] MEDS ORDERED: CHLORPROMAZINE HCL INJ 25 MG/1 ML AMPULE IV PRN (21:24)
[2020-04-13] MEDS: INSULIN GLARGINE,HUM.REC.ANLOG 1,000 UNIT/10 ML VIAL SUBCUT SCH (21:52)
[2020-04-13] MEDS ORDERED: CHLORPROMAZINE HCL INJ 25 MG/1 ML AMPULE ONE (23:11)
[2020-04-14] MEDS: LORAZEPAM INJ 2 MG/1 ML VIAL IV PRN ×2 (06:02→21:52)
[2020-04-14] MEDS: MORPHINE SULFATE 10 MG/ML INJ IV PRN ×4 (07:45→21:52)
[2020-04-14] MEDS: INSULIN LISPRO 100 UNIT/ML 3 ML VIAL SUBCUT SCH ×4 (07:46→21:31)
[2020-04-14] MEDS ORDERED: LORAZEPAM INJ 2 MG/1 ML VIAL ONE (08:09)
[2020-04-14] MEDS ORDERED: LORAZEPAM INJ 2 MG/1 ML VIAL IV ONE (08:20)
[2020-04-14] MEDS: GUAIFENESIN 600 MG TABLET.SA PO SCH ×2 (10:12→21:32)
[2020-04-14] MEDS: ASCORBIC ACID 500 MG TABLET PO SCH ×2 (10:12→17:09)
[2020-04-14] MEDS: CHOLECALCIFEROL (D3) 1,000 UNIT (25 MCG) TABLET PO SCH (10:12)
[2020-04-14] MEDS: FAMOTIDINE 20 MG TABLET PO SCH ×2 (10:12→21:32)
[2020-04-14] MEDS: ZINC SULFATE 220 MG CAPSULE PO SCH (10:13)
[2020-04-14] MEDS: ENOXAPARIN SODIUM INJ 100 MG/1 ML DISP.SYRIN SUBCUT SCH ×2 (10:17→21:32)
--- NOTE | 2020-04-14 12:13 | PDOC PROGRESS REPORT ---
Subjective Progress Note for:: 04/14/20 Subjective:: A rapid response was called for him this morning because he was pulling at the tubing on his BiPAP and disconnected it. His saturations dropped into the 40s. We reconnected his tubing and his saturations came back up into the low 90s. He is on pretty high level BiPAP settings. His respiratory rate has been in the 30s and 40s. Reason For Visit: ACUTE HYPOXIC RESPIRATORY FAILURE Physical Exam Vital Signs: Temp Pulse Resp BP Pulse Ox 98.2 F 71 42 H 107/68 91 L 04/14/20 11:13 04/14/20 11:13 04/14/20 11:13 04/14/20 11:13 04/14/20 11:13 Intake & Output 04/13/20 04/14/20 04/15/20 06:59 06:59 05:59 Intake Total 1004 879 Output Total 1175 460 225 Balance -171 419 -225 Weight 95.4 kg 94.8 kg General appearance: PRESENT: Moderate distress, well-developed, well-nourished Head exam: PRESENT: atraumatic, normocephalic Respiratory exam: PRESENT: Crackles right lower lobe, decreased breath sounds - Diffuse, tachypnea. ABSENT: rhonchi, wheezes Cardiovascular exam: PRESENT: RRR. ABSENT: diastolic murmur, rubs, systolic murmur GI/Abdominal exam: PRESENT: normal bowel sounds, soft. ABSENT: distended, g uarding, mass, organolmegaly, rebound, tenderness Extremities exam: ABSENT: pedal edema Neurological exam: PRESENT: awake, oriented to person, oriented to place Psychiatric exam: PRESENT: flat affect Skin exam: PRESENT: dry, intact, warm Results Laboratory Results: 04/13/20 04:44 04/10/20 04:50 04/06/20 04/06/20 04/06/20 17:10 17:10 21:10 Creatine Kinase 191 H 218 H CK-MB (CK-2) 0.66 Troponin I < 0.012 Impressions: Chest/Abdomen CTA 04/06/20 17:37 IMPRESSION: 1. There is no pulmonary embolus. There is no aortic aneurysm or dissection. 2. Chronic pulmonary fibrosis and bronchiectasis. 3. Cannot exclude multicentric pneumonia, possibly an atypical infectious/ inflammatory process. 4. Questionable thickening of the wall the colon versus mere nondistention. Correlate for inflammatory bowel disease. Chest X-Ray 04/08/20 00:00 IMPRESSION: Vascular congestion. Peripheral interstitial opacities are stable. Assessment and Plan - Diagnosis (1) Acute respiratory failure with hypoxia Is this a current diagnosis for this admission?: Yes (2) COVID-19 virus infection Is this a current diagnosis for this admission?: Yes (3) Atrial fibrillation Qualifiers: Atrial fibrillation type: paroxysmal Qualified Code(s): I48.0 - Paroxysmal atrial fibrillation Is this a current diagnosis for this admission?: Yes (4) Diabetes type 2, controlled Qualifiers: Diabetes mellitus superintendent marine oil terminal insulin use: without superintendent marine oil terminal use Diabetes mellitus complication status: without complication Qualified Code(s): E11.9 - Type 2 diabetes mellitus without complications Is this a current diagnosis for this admission?: Yes (5) Pneumonia Qualifiers: Pneumonia type: due to unspecified organism Laterality: bilateral Lung location: unspecified part of lung Qualified Code(s): J18.9 - Pneumonia, unspecified organism Is this a current diagnosis for this admission?: Yes (6) Pulmonary fibrosis Is this a current diagnosis for this admission?: Yes (7) Arthritis of left knee Is this a current diagnosis for this admission?: Yes - Plan Summary Summary: He has completed remdesivir and has been receiving the typical treatments as we know it at this time for this virus in this syndrome. He continues to require high level of oxygen support. We tried to wean him from BiPAP yesterday but were unsuccessful. He had episode previously referenced. Continue to provide supportive care until he can hopefully turn the corner and start to make improvements. - Time Time Spent with patient: 25-34 minutes Anticipated Discharge Disposition: Pending clinical course Anticipated Discharge Timeframe: Pending clinical course
[2020-04-14] MEDS: IPRATROPIUM/ALBUTEROL 0.5-2.5 MG/3 ML AMPUL NEB PRN (20:06)
[2020-04-14] MEDS: INSULIN GLARGINE,HUM.REC.ANLOG 1,000 UNIT/10 ML VIAL SUBCUT SCH (21:31)
[2020-04-14] MEDS ORDERED: MORPHINE SULFATE 60 MG/60 ML RTUINJ IV ONE (22:17)
[2020-04-14] MEDS: MORPHINE SULFATE 60 MG/60 ML RTUINJ IV PRN (23:00)
[2020-04-15] MEDS ORDERED: NORMAL SALINE 1000 ML 1,000 ML IV PRN (01:46)
[2020-04-15] MEDS: LORAZEPAM INJ 2 MG/1 ML VIAL IV PRN (05:47)
[2020-04-15] MEDS: IPRATROPIUM/ALBUTEROL 0.5-2.5 MG/3 ML AMPUL NEB PRN (06:33)
[2020-04-15] MEDS: INSULIN LISPRO 100 UNIT/ML 3 ML VIAL SUBCUT SCH ×4 (07:50→21:44)
[2020-04-15] MEDS: GUAIFENESIN 600 MG TABLET.SA PO SCH ×2 (09:26→21:44)
[2020-04-15] MEDS: FAMOTIDINE 20 MG TABLET PO SCH ×2 (09:26→21:44)
[2020-04-15] MEDS: ASCORBIC ACID 500 MG TABLET PO SCH ×2 (09:26→17:15)
[2020-04-15] MEDS: ZINC SULFATE 220 MG CAPSULE PO SCH (09:27)
[2020-04-15] MEDS: CHOLECALCIFEROL (D3) 1,000 UNIT (25 MCG) TABLET PO SCH (09:27)
[2020-04-15] MEDS: ENOXAPARIN SODIUM INJ 100 MG/1 ML DISP.SYRIN SUBCUT SCH ×2 (10:25→21:43)
--- NOTE | 2020-04-15 15:37 | PDOC PROGRESS REPORT ---
Subjective Progress Note for:: 04/15/20 Subjective:: A rapid response was called on him again last night. At that point he was put on morphine infusion. His family still wants him to be a full code. He is sedated but his saturations have been doing fairly well and his respiratory rate has not slowed down below a level in which we are comfortable. He had a fever today. Reason For Visit: ACUTE HYPOXIC RESPIRATORY FAILURE Physical Exam Vital Signs: Temp Pulse Resp BP Pulse Ox 100.8 F H 109 H 30 H 119/71 95 04/15/20 11:08 04/15/20 14:00 04/15/20 14:00 04/15/20 11:08 04/15/20 12:00 Intake & Output 04/14/20 04/15/20 04/16/20 07:59 06:59 06:59 Intake Total Output Total Balance Weight General appearance: PRESENT: Moderate distress, well-developed, well-nourished Head exam: PRESENT: atraumatic, normocephalic Respiratory exam: PRESENT: Crackles right lower lobe, decreased breath sounds - Diffuse, tachypnea. ABSENT: rhonchi, wheezes Cardiovascular exam: PRESENT: RRR. ABSENT: diastolic murmur, rubs, systolic murmur GI/Abdominal exam: PRESENT: normal bowel sounds, soft. ABSENT: distended, guarding, mass, organolmegaly, rebound, tenderness Extremities exam: ABSENT: pedal edema Neurological exam: PRESENT: Sedated Psychiatric exam: PRESENT: Sedated Skin exam: PRESENT: dry, intact, warm Results Laboratory Results: 04/13/20 04:44 04/10/20 04:50 04/06/20 04/06/20 04/06/20 17:10 17:10 21:10 Creatine Kinase 191 H 218 H CK-MB (CK-2) 0.66 Troponin I < 0.012 Impressions: Chest/Abdomen CTA 04/06/20 17:37 IMPRESSION: 1. There is no pulmonary embolus. There is no aortic aneurysm or dissection. 2. Chronic pulmonary fibrosis and bronchiectasis. 3. Cannot exclude multicentric pneumonia, possibly an atypical infectious/ inflammatory process. 4. Questionable thickening of the wall the colon versus mere nondistention. Correlate for inflammatory bowel disease. Chest X-Ray 04/08/20 00:00 IMPRESSION: Vascular congestion. Peripheral interstitial opacities are stable. Assessment and Plan - Diagnosis (1) Acute respiratory failure with hypoxia Is this a current diagnosis for this admission?: Yes (2) COVID-19 virus infection Is this a current diagnosis for this admission?: Yes (3) Atrial fibrillation Qualifiers: Atrial fibrillation type: paroxysmal Qualified Code(s): I48.0 - Paroxysmal atrial fibrillation Is this a current diagnosis for this admission?: Yes (4) Diabetes type 2, controlled Qualifiers: Diabetes mellitus manager intermediate insulin use: without manager intermediate use Diabetes mellitus complication status: without complication Qualified Code(s): E11.9 - Type 2 diabetes mellitus without complications Is this a current diagnosis for this admission?: Yes (5) Pneumonia Qualifiers: Pneumonia type: due to unspecified organism Laterality: bilateral Lung location: unspecified part of lung Qualified Code(s): J18.9 - Pneumonia, unspecified organism Is this a current diagnosis for this admission?: Yes (6) Pulmonary fibrosis Is this a current diagnosis for this admission?: Yes (7) Arthritis of left knee Is this a current diagnosis for this admission?: Yes - Plan Summary Summary: He has completed remdesivir and has been receiving the typical treatments as we know it at this time for this virus in this syndrome. He continues to require high level of oxygen support. He has not been able to wean from BiPAP yet. He was started on a morphine infusion last night, and while I am reluctant to continue it I do acknowledge that he appears more comfortable and his respiratory rate has not slowed down too much and his saturations are stable in the low 90s. Respiratory therapy continues to round on him frequently to assess his level of BiPAP support. I am going to start him back on some antibiotics because he had a fever. - Time Time Spent with patient: 25-34 minutes Anticipated Discharge Disposition: Pending clinical course Anticipated Discharge Timeframe: Pending clinical course
[2020-04-15] MEDS: PIPERACILLIN SODIUM/TAZOBACTAM 3.375 GM in NORMAL SALINE 100 ML IV SCH (17:16)
[2020-04-15] MEDS: INSULIN GLARGINE,HUM.REC.ANLOG 1,000 UNIT/10 ML VIAL SUBCUT SCH (21:30)
[2020-04-15] MEDS ORDERED: MORPHINE SULFATE 60 MG/60 ML RTUINJ IV ONE (23:57)
[2020-04-16] MEDS: PIPERACILLIN SODIUM/TAZOBACTAM 3.375 GM in NORMAL SALINE 100 ML IV SCH ×4 (00:23→17:46)
[2020-04-16] MEDS: MORPHINE SULFATE 60 MG/60 ML RTUINJ IV PRN (00:23)
[2020-04-16] MEDS ORDERED: NORMAL SALINE 1000 ML 1,000 ML IV PRN (07:39)
[2020-04-16 08:27] LABS: HEMOGLOBIN 11.9 g/dL (13.5-17.0); MEAN CORPUSCULAR HEMOGLOBIN 29.3 pg (27.0-33.4); MEAN CORPUSCULAR HGB CONC 33.1 g/dL (32.0-36.0); MEAN CORPUSCULAR VOLUME 89 fl (80-97); PLATELET COUNT 255 10^3/uL (150-450); RED BLOOD COUNT 4.06 10^6/uL (4.35-5.55); RED CELL DISTRIBUTION WIDTH 15.5 % (11.5-14.0); WHITE BLOOD COUNT 13.3 10^3/uL (4.0-10.5)
[2020-04-16 08:40] LABS: ALBUMIN 2.6 g/dL (3.5-5.0); ALKALINE PHOSPHATASE 155 U/L (38-126); ANION GAP 12 (5-19); ASPARTATE AMINO TRANSFERASE 53 U/L (17-59); BILIRUBIN,DIRECT 0.8 mg/dL (0.0-0.4); BILIRUBIN,TOTAL 1.6 mg/dL (0.2-1.3); BLOOD UREA NITROGEN 36 mg/dL (7-20); CALCIUM 8.2 mg/dL (8.4-10.2); CARBON DIOXIDE 25 mmol/L (22-30); CHLORIDE 106 mmol/L (98-107); GLUCOSE 264 mg/dL (75-110); TOTAL PROTEIN 6.6 g/dL (6.3-8.2)
--- NOTE | 2020-04-16 09:19 | RADIOLOGY REPORT (SQ) ---
EXAM DESCRIPTION: CHEST SINGLE VIEW IMAGES COMPLETED DATE/TIME: 04/16/2020 9:02 am REASON FOR STUDY: resp distress COMPARISON: 04/08/2020 EXAM PARAMETERS: NUMBER OF VIEWS: One view. TECHNIQUE: Single frontal radiographic view of the chest acquired. RADIATION DOSE: NA LIMITATIONS: None. FINDINGS: LUNGS AND PLEURA: Persistent basilar patchy interstitial and alveolar opacities, similar t o prior. Small bilateral effusions. No pneumothorax. MEDIASTINUM AND HILAR STRUCTURES: No masses. Contour normal. HEART AND VASCULAR STRUCTURES: Enlarged, stable. Central vascular prominence. BONES: No acute findings. HARDWARE: None in the chest. OTHER: No other significant finding. IMPRESSION: Persistent basilar patchy interstitial and alveolar opacities, likely edema although inf ection not excluded. Small bilateral effusions. TECHNICAL DOCUMENTATION: JOB ID: [id number] 2010 [employer]- All Rights Reserved Reading location - IP/workstation name: [email or web address]
[2020-04-16 09:33] LABS: POTASSIUM 5.6 mmol/L (3.6-5.0)
[2020-04-16 11:11] LABS: ARTERIAL BLOOD BASE EXCESS -0.4 mmol/L; ARTERIAL BLOOD H2CO3 1.21 mmol/L (1.05-1.35); ARTERIAL BLOOD HCO3 24.3 mmol/L (20-24); ARTERIAL BLOOD O2 SATURATION 93.1 % (94-98); ARTERIAL BLOOD PCO2 40.1 mmHg (35-45); ARTERIAL BLOOD PO2 65.8 mmHg (80-100); ARTERIAL BLOOD TOTAL CO2 25.6 mmol/L (23-27)
[2020-04-16 11:15] LABS: ARTERIAL BLOOD FIO2 100%
[2020-04-16] MEDS: INSULIN LISPRO 100 UNIT/ML 3 ML VIAL SUBCUT SCH ×4 (11:38→23:10)
[2020-04-16] MEDS: ZINC SULFATE 220 MG CAPSULE PO SCH (11:40)
[2020-04-16] MEDS: FAMOTIDINE 20 MG TABLET PO SCH ×2 (11:40→22:25)
[2020-04-16] MEDS: CHOLECALCIFEROL (D3) 1,000 UNIT (25 MCG) TABLET PO SCH (11:40)
[2020-04-16] MEDS: ASCORBIC ACID 500 MG TABLET PO SCH ×2 (11:40→17:47)
[2020-04-16] MEDS: GUAIFENESIN 600 MG TABLET.SA PO SCH ×2 (11:41→22:25)
[2020-04-16] MEDS: ENOXAPARIN SODIUM INJ 100 MG/1 ML DISP.SYRIN SUBCUT SCH ×2 (11:49→23:09)
--- NOTE | 2020-04-16 15:05 | PDOC PROGRESS REPORT ---
Subjective Progress Note for:: 04/16/20 Subjective:: Patient remains BiPAP dependent. He had a temperature of 100.5 Fahrenheit today. He is on pressures of 20/12 at 100% FiO2. The morphine drip seems to help him relax and his respiratory rate slows down without seeming to compromise his ventilation as his pulse oximetry has remained between 90 and 93%. Reason For Visit: ACUTE HYPOXIC RESPIRATORY FAILURE Physical Exam Vital Signs: Temp Pulse Resp BP Pulse Ox 100.5 F H 99 32 H 128/80 H 91 L 04/16/20 13:33 04/16/20 13:33 04/16/20 14:10 04/16/20 13:33 04/16/20 14:10 Intake & Output 04/15/20 04/16/20 04/17/20 06:59 06:59 06:59 Intake Total 0 Output Total 1150 Balance -1150 Weight 94.3 kg General appearance: PRESENT: Moderate distress, well-developed, well-nourished Head exam: PRESENT: atraumatic, normocephalic Respiratory exam: PRESENT: Crackles right lower lobe, decreased breath sounds - Diffuse, tachypnea. ABSENT: rhonchi, wheezes Cardiovascular exam: PRESENT: RRR. ABSENT: diastolic murmur, rubs, systolic murmur GI/Abdominal exam: PRESENT: normal bowel sounds, soft. ABSENT: distended, guarding, mass, organolmegaly, rebound, tenderness Extremities exam: ABSENT: pedal edema Neurological exam: PRESENT: Sedated Psychiatric exam: PRESENT: Sedated Skin exam: PRESENT: dry, intact, warm Results Laboratory Results: 04/16/20 07:30 04/16/20 07:30 04/16/20 04/16/20 04/16/20 07:30 07:30 10:50 WBC 13.3 H RBC 4.06 L Hgb 11.9 L Hct 36.0 L MCV 89 MCH 29.3 MCHC 33.1 RDW 15.5 H Plt Count 255 Carbonic Acid 1.21 HCO3/H2CO3 Ratio 20:1 ABG pH 7.40 ABG pCO2 40.1 ABG pO2 65.8 L ABG HCO3 24.3 H ABG O2 Saturation 93.1 L ABG Base Excess -0.4 FiO2 100% Sodium 143.0 Potassium 5.6 H Chloride 106 Carbon Dioxide 25 Anion Gap 12 BUN 36 H Creatinine 0.96 Est GFR ( Amer) > 60 Glucose 264 H Calcium 8.2 L Total Bilirubin 1.6 H AST 53 Alkaline Phosphatase 155 H Total Protein 6.6 Albumin 2.6 L 04/06/20 04/06/20 04/06/20 17:10 17:10 21:10 Creatine Kinase 191 H 218 H CK-MB (CK-2) 0.66 Troponin I < 0.012 Impressions: Chest/Abdomen CTA 04/06/20 17:37 IMPRESSION: 1. There is no pulmonary embolus. There is no aortic aneurysm or dissection. 2. Chronic pulmonary fibrosis and bronchiectasis. 3. Cannot exclude multicentric pneumonia, possibly an atypical infectious/ inflammatory process. 4. Questionable thickening of the wall the colon versus mere nondistention. Correlate for inflammatory bowel disease. Chest X-Ray 04/16/20 00:00 IMPRESSION: Persistent basilar patchy interstitial and alveolar opacities, likely edema although infection not excluded. Small bilateral effusions. Assessment and Plan - Diagnosis (1) Acute respiratory failure with hypoxia Is this a current diagnosis for this admission?: Yes (2) COVID-19 virus infection Is this a current diagnosis for this admission?: Yes (3) Atrial fibrillation Qualifiers: Atrial fibrillation type: paroxysmal Qualified Code(s): I48.0 - Paroxysmal atrial fibrillation Is this a current diagnosis for this admission?: Yes (4) Diabetes type 2, controlled Qualifiers: Diabetes mellitus terminal make up operator insulin use: without terminal make up operator use Diabetes mellitus complication status: without complication Qualified Code(s): E11.9 - Type 2 diabetes mellitus without complications Is this a current diagnosis for this admission?: Yes (5) Pneumonia Qualifiers: Pneumonia type: due to unspecified organism Laterality: bilateral Lung location: unspecified part of lung Qualified Code(s): J18.9 - Pneumonia, uns pecified organism Is this a current diagnosis for this admission?: Yes (6) Pulmonary fibrosis Is this a current diagnosis for this admission?: Yes (7) Arthritis of left knee Is this a current diagnosis for this admission?: Yes - Plan Summary Summary: He has completed remdesivir and has been receiving the typical treatments as we know it at this time for this virus in this syndrome. He continues to require high level of oxygen support. He remains BiPAP dependent with a high level of support. He was started on a morphine infusion, his respiratory rate has not slowed down too much and his saturations are stable in the low 90s. Respiratory therapy continues to round on him frequently to assess his level of BiPAP support. I have resumed empiric antibiotics due to fever. Family has been updated. - Time Time Spent with patient: 25-34 minutes Anticipated Discharge Disposition: Pending clinical course Anticipated Discharge Timeframe: Pending clinical course
[2020-04-16 22:27] LABS: APPEARANCE,URINE CLOUDY; BILIRUBIN,URINE NEGATIVE (NEGATIVE); CALCIUM OXALATE CRYSTALS,URINE FEW /HPF; COLOR,URINE AMBER; GLUCOSE, URINE 50 mg/dL (NEGATIVE); KETONES,URINE TRACE mg/dL (NEGATIVE); LEUKOCYTE ESTERASE,URINE NEGATIVE (NEGATIVE); NITRITE,URINE NEGATIVE (NEGATIVE); PROTEIN,URINE 30 mg/dL (NEGATIVE); URINE SPECIFIC GRAVITY 1.033
[2020-04-16] MEDS: INSULIN GLARGINE,HUM.REC.ANLOG 1,000 UNIT/10 ML VIAL SUBCUT SCH (23:09)
[2020-04-17] MEDS ORDERED: MORPHINE SULFATE 10 MG/ML INJ ONE ×2 (00:17→05:05)
[2020-04-17] MEDS: IPRATROPIUM/ALBUTEROL 0.5-2.5 MG/3 ML AMPUL NEB PRN (00:24)
[2020-04-17] MEDS ORDERED: MORPHINE SULFATE 10 MG/ML INJ IV ONE (01:00)
[2020-04-17] MEDS: PIPERACILLIN SODIUM/TAZOBACTAM 3.375 GM in NORMAL SALINE 100 ML IV SCH ×2 (01:44→07:01)
[2020-04-17] MEDS: MORPHINE SULFATE 60 MG/60 ML RTUINJ IV PRN (04:18)
[2020-04-17] MEDS ORDERED: DIAZEPAM INJ 10 MG/2 ML DISP.SYRIN ONE (05:12)
[2020-04-17] MEDS ORDERED: MORPHINE SULFATE 10 MG/ML INJ IV PRN (05:59)
[2020-04-17] MEDS ORDERED: DIAZEPAM INJ 10 MG/2 ML DISP.SYRIN IV PRN (06:00)
[2020-04-17 06:01] LABS: ARTERIAL BLOOD BASE EXCESS 0.8 mmol/L; ARTERIAL BLOOD H2CO3 1.55 mmol/L (1.05-1.35); ARTERIAL BLOOD HCO3 27.3 mmol/L (20-24); ARTERIAL BLOOD O2 SATURATION 93.6 % (94-98); ARTERIAL BLOOD PCO2 51.6 mmHg (35-45); ARTERIAL BLOOD PH 7.34 (7.35-7.45); ARTERIAL BLOOD PO2 72.8 mmHg (80-100); ARTERIAL BLOOD TOTAL CO2 28.9 mmol/L (23-27)
[2020-04-17 06:02] LABS: ARTERIAL BLOOD FIO2 100%
[2020-04-17] MEDS ORDERED: NORMAL SALINE 1000 ML 1,000 ML IV PRN (08:18)
[2020-04-17 08:59] LABS: HEMATOCRIT 36.5 % (37.9-51.0); HEMOGLOBIN 11.8 g/dL (13.5-17.0); MEAN CORPUSCULAR HEMOGLOBIN 29.1 pg (27.0-33.4); MEAN CORPUSCULAR HGB CONC 32.4 g/dL (32.0-36.0); MEAN CORPUSCULAR VOLUME 90 fl (80-97); PLATELET COUNT 244 10^3/uL (150-450); RED BLOOD COUNT 4.07 10^6/uL (4.35-5.55); RED CELL DISTRIBUTION WIDTH 15.3 % (11.5-14.0); WHITE BLOOD COUNT 15.9 10^3/uL (4.0-10.5)
[2020-04-17 09:11] LABS: ANION GAP 8 (5-19); BLOOD UREA NITROGEN 31 mg/dL (7-20); C-REACTIVE PROTEIN 72.1 mg/L (<10.0); CALCIUM 8.3 mg/dL (8.4-10.2); CARBON DIOXIDE 26 mmol/L (22-30); CHLORIDE 111 mmol/L (98-107); GLUCOSE 249 mg/dL (75-110)
[2020-04-17] MEDS: ASCORBIC ACID 500 MG TABLET PO SCH (09:26)
[2020-04-17] MEDS: FAMOTIDINE 20 MG TABLET PO SCH (09:26)
[2020-04-17] MEDS: ZINC SULFATE 220 MG CAPSULE PO SCH (09:26)
[2020-04-17] MEDS: CHOLECALCIFEROL (D3) 1,000 UNIT (25 MCG) TABLET PO SCH (09:26)
[2020-04-17 09:32] LABS: ABSOLUTE LYMPHOCYTES# (MANUAL) 0.3 10^3/uL (0.5-4.7); ABSOLUTE MONOCYTES # (MANUAL) 0.2 10^3/uL (0.1-1.4); BASOPHILS % (MANUAL) 0 % (0-2); EOSINOPHILS % (MANUAL) 0 % (0-6); LYMPHOCYTES % (MANUAL) 2 % (13-45); MONOCYTES % (MANUAL) 1 % (3-13); SEGMENTED NEUTROPHILS % (MAN) 97 % (42-78); TOTAL CELLS COUNTED 100
[2020-04-17 09:33] LABS: BURR CELLS 1+; POIKILOCYTOSIS 1+
[2020-04-17 09:34] LABS: PLATELET COMMENT ADEQUATE
[2020-04-17] MEDS: INSULIN LISPRO 100 UNIT/ML 3 ML VIAL SUBCUT SCH ×2 (09:51→12:10)
[2020-04-17] MEDS: ENOXAPARIN SODIUM INJ 100 MG/1 ML DISP.SYRIN SUBCUT SCH (09:53)
--- NOTE | 2020-04-17 11:03 | CRITICAL CARE ADMISSION REPORT ---
HPI Date:: 04/17/20 Time:: 10:30 Reason for ICU Reason:: Intubation for COVID Admission Date/Time & PCP: Admission Date/Time: 04/06/20 21:08 Primary Care Provider: ENEDELIA HOPKINS MD HPI: This patient is a 69 yo man diagnosed with Covid pneumonia. He has been maintained on bipap and is on 100%. He is somewhat obtunded but arousable. He has been getting increasingly hypoxic with O2 saturations 88-90 and mildly hypercarbic. His RR is in the 40s. He likely needs intubation. However this looks as though he will not survive as he is getting progressively worse. History obtained from:: Carley Hernadez and old records - Diagnosis/Plan (1) Acute respiratory failure with hypoxia Is this a current diagnosis for this admission?: Yes Plan: He is in danger of needing intubation. He will be brought to the ICU for intubation today. (2) COVID-19 virus infection Is this a current diagnosis for this admission?: Yes Plan: He has multifocal areas on his CXR C/W imfiltrates. Continue antibiotics but this is likely mostly Covid. (3) Diabetes type 2, controlled Qualifiers: Diabetes mellitus intermediate school teacher insulin use: without chcf use Diabetes mellitus complication status: without complication Qualified Code(s): E11.9 - Type 2 diabetes mellitus without complications Is this a current diagnosis for this admission?: Yes Plan: Not well controlled. Need to go up on insulin. (4) Pulmonary fibrosis Is this a current diagnosis for this admission?: Yes Plan: This certainly is worsening his pulmonary status. Plan Summary: His is recovering from Covid pneumonia. Family wishes for aggressive care. Past Medical History Cardiac Medical History: Reports: Myocardial Infarction - 2008-Mild, Hyperlipidema - since 1981, takes meds, Hypertension - since 1981, takes meds Denies: Atrial Fibrillation, Congestive Heart Failure, Coronary Artery Disease, Peripheral Vascular Disease, Pulmonary Embolism, Heart Murmur Pulmonary Medical History: Reports: Pneumonia - 2006? Denies: Asthma, Bronchitis, Chronic Obstructive Pulmonary Disease (COPD), Respiratory Failure, Sleep Apnea, Tuberculosis Endocrine Medical History: Reports: Diabetes Mellitus Type 2 Denies: Hyperthyroidism, Hypothyroidism Renal/ Medical History: Denies: End Stage Renal Disease Malignancy Medical History: Denies: Lung Cancer GI Medical History: Reports: Gastroesophageal Reflux Disease Denies: Crohn's Disease, Hiatal Hernia Musculoskeltal Medical History: Reports: Arthritis Denies: Fibromyalgia Psychiatric Medical History: Denies: Depression Past Surgical History Past Surgical History: Reports: Herniorrhaphy - 1975 Inguinal, Orthopedic Surgery - bilateral knees; L knee Denies: Appendectomy, Cholecystectomy, Colostomy, Coronary Artery Bypass Graft, Gastric Bypass Surgery, Pacemaker, Tonsillectomy Social/Family History - Social History Lives with: Family Smoking Status: Never Smoker Frequency of Alcohol Use: None Hx Recreational Drug Use: No Drugs: None Hx Prescription Drug Abuse: No - Medication/Allergies Home Medications: Atorvastatin Calcium [Lipitor 40 mg Tablet] 40 mg PO QPM 08/05/16 Enalapril Maleate [Vasotec] 20 mg PO BID 08/05/16 Glipizide [Glipizide ER] 5 mg PO QAM 08/05/16 Omeprazole 20 mg PO QAM 08/05/16 Oxybutynin Chloride [Ditropan Xl] 15 mg PO QHS 08/05/16 Sitagliptin Phos/Metformin HCl [Janumet Xr 50-1,000 mg Tablet] 1 tab PO BID 04/07/20 Allergies/Adverse Reactions: No Known Allergies Allergy (Verified 08/27/16 17:15) Review of Systems ROS unobtainable: Due to mental status Physical Exam Vital Signs: Temp Pulse Resp BP Pulse Ox 99.9 F 81 31 H 132/81 H 88 L 04/17/20 08:00 04/17/20 08:00 04/17/20 08:00 04/17/20 08:00 04/17/20 08:00 Intake & Output 04/16/20 04/17/20 04/18/20 06:59 06:59 06:59 Intake Total 0 Output Total 1150 1225 Balance -1150 -1225 Weight 94.3 kg 95.5 kg Weight/Height Weight 95.5 kg Height 6 ft 2 in General appearance: PRESENT: no acute distress Head exam: PRESENT: atraumatic, normocephalic Eye exam: PRESENT: conjunctiva pink, EOMI, PERRLA. ABSENT: scleral icterus Ear exam: PRESENT: normal external ear exam Mouth exam: PRESENT: moist, tongue midline Respiratory exam: PRESENT: clear to auscultation erick, tachypnea. ABSENT: rales, rhonchi, wheezes Cardiovascular exam: PRESENT: RRR. ABSENT: diastolic murmur, rubs, systolic murmur GI/Abdominal exam: PRESENT: normal bowel sounds, soft. ABSENT: distended, guarding, mass, organolmegaly, rebound, tenderness Rectal exam: PRESENT: deferred Gentrourinary exam: PRESENT: indwelling catheter Extremities exam: PRESENT: full ROM. ABSENT: calf tenderness, clubbing, pedal edema Musculoskeletal exam: PRESENT: normal inspection Neurological exam: PRESENT: altered, other - Obtunded. Rouses some to voice. Skin exam: PRESENT: dry, intact, warm. ABSENT: cyanosis, rash Tubes/Lines: PRESENT: Other - Bipap Laboratory/Radiographs Laboratory Results: 04/17/20 08:34 04/17/20 08:34 04/16/20 04/16/20 04/17/20 10:50 21:46 05:40 WBC RBC Hgb Hct MCV MCH MCHC RDW Plt Count Seg Neutrophils % Carbonic Acid 1.21 1.55 H HCO3/H2CO3 Ratio 20:1 17:1 ABG pH 7.40 7.34 L ABG pCO2 40.1 51.6 H ABG pO2 65.8 L 72.8 L ABG HCO3 24.3 H 27.3 H ABG O2 Saturation 93.1 L 93.6 L ABG Base Excess -0.4 0.8 FiO2 100% 100% Sodium Potassium Chloride Carbon Dioxide Anion Gap BUN Creatinine Est GFR ( Amer) Glucose Calcium Ferritin C-Reactive Protein Urine Color BETSEY Urine Appearance CLOUDY Urine pH 5.0 Ur Specific [place] 1.033 Urine Protein 30 H Urine Glucose (UA) 50 H Urine Ketones TRACE H Urine Blood MODERATE H Urine Nitrite NEGATIVE Ur Leukocyte Esterase NEGATIVE Urine WBC (Auto) 3 Urine RBC (Auto) 87 04/17/20 04/17/20 08:34 08:34 WBC 15.9 H RBC 4.07 L Hgb 11.8 L Hct 36.5 L MCV 90 MCH 29.1 MCHC 32.4 RDW 15.3 H Plt Count 244 Seg Neutrophils % Not Reportable Carbonic Acid HCO3/H2CO3 Ratio ABG pH ABG pCO2 ABG pO2 ABG HCO3 ABG O2 Saturation ABG Base Excess FiO2 Sodium 145.1 H Potassium 5.0 Chloride 111 H Carbon Dioxide 26 Anion Gap 8 BUN 31 H Creatinine 0.81 Est GFR ( Amer) > 60 Glucose 249 H Calcium 8.3 L Ferritin 351.00 C-Reactive Protein 72.1 H Urine Color Urine Appearance Urine pH Ur Specific [place]anger Urine Protein Urine Glucose (UA) Urine Ketones Urine Blood Urine Nitrite Ur Leukocyte Esterase Urine WBC (Auto) Urine RBC (Auto) 04/06/20 04/06/20 04/06/20 17:10 17:10 21:10 Creatine Kinase 191 H 218 H CK-MB (CK-2) 0.66 Troponin I < 0.012 Impressions: Chest/Abdomen CTA 04/06/20 17:37 IMPRESSION: 1. There is no pulmonary embolus. There is no aortic aneurysm or dissection. 2. Chronic pulmonary fibrosis and bronchiectasis. 3. Cannot exclude multicentric pneumonia, possibly an atypical infectious/ inflammatory process. 4. Questionable thickening of the wall the colon versus mere nondistention. Correlate for inflammatory bowel disease. Chest X-Ray 04/16/20 00:00 IMPRESSION: Persistent basilar patchy interstitial and alveolar opacities, likely edema although infection not excluded. Small bilateral effusions. All labs, radiographs, diagnostic studies and EKGs were personally reviewed: Yes In addition, reports of radiographic and diagnostic studies were read: Yes Critical Time Critical Time (minutes): 40 -: The care of a critically ill patient is dynamic. This note represents a static moment in the admission process. Orders and treatments may be given simultaneously and urgently, and time is not regional sales representative of the treatment process. This patient requires Critical Care secondary to life threatening organ or limb dysfunction. Without Critical Care services, the patient is at risk for increased mortality and morbidity.
[2020-04-17] MEDS: GUAIFENESIN 600 MG TABLET.SA PO SCH (11:44)
[2020-04-17] MEDS ORDERED: ACETAMINOPHEN 325 MG SUPP.RECT PR ONE (12:08)
[2020-04-17] MEDS ORDERED: PROPOFOL 1,000 MG/100 ML INFUS..BTL IV ONE (12:45)
[2020-04-17] MEDS ORDERED: ETOMIDATE INJ/PF 20 MG/10 ML SDV IV ONE (12:59)
--- NOTE | 2020-04-17 13:23 | Operative Report ---
Bedside Procedure - History of Present Illness History of Present Illness: This patient is a 69 yo man diagnosed with Covid pneumonia. He has been maintained on bipap and is on 100%. He is somewhat obtunded but arousable. He has been getting increasingly hypoxic with O2 saturations 88-90 and mildly hypercarbic. His RR is in the 40s. He likely needs intubation. However this looks as though he will not survive as he is getting progressively worse. Indication for Procedure: Need for intubation Date: 04/17/20 Provider: ZAC APPIAH - Intubation Orotracheal Time of Intubation: 13:00 Airway evaluation: Normal anatomy, Large tongue Mallampati Classification: Class 2 Medications: Etomidate Intubation method: Orotracheal Blade type: Paulie Blade size: 4 Equipment used: Glidescope ETT size: 8.0 ETT secured at: Lips ETT secured at (cm): 24 Post Intubation Xray: Yes Intubation Complications: No complications
[2020-04-17] MEDS ORDERED: ATROPINE SULFATE INJ 1 MG/1 ML VIAL ONE (13:47)
[2020-04-17] MEDS ORDERED: ATROPINE SULFATE INJ 1 MG/10 ML DISP.SYRIN IV ONE (14:59)
[2020-04-17] MEDS ORDERED: EPINEPHRINE INJ 1 MG/10 ML DISP.SYRIN ONE (14:59)
[2020-04-17] MEDS ORDERED: SODIUM BICARBONATE 8.4% INJ 50 MEQ/50 ML DISP.SYRIN ONE (14:59)
[2020-04-17 15:20] VITALS: BP 46/30
--- NOTE | 2020-04-17 19:26 | PDOC PROGRESS REPORT ---
Subjective Progress Note for:: 04/17/20 Subjective:: Patient is a 69-year-old male with a past medical history of VA, hypertension, hyperlipidemia, pneumonia, DM 2, GERD, arthritis who was admitted 04/06/2020 for acute respiratory failure with hypoxia secondary to Covid pneumonia. He is currently on day #11 of his admission. Previously received full course of azithromycin, remdesivir, and convalescent plasma. Previously treated with dexamethasone, vitamin C, vitamin D, zinc, and melatonin. On full dose Lovenox due to elevated D-dimer. 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 At the time of my assessment, patient was minimally responsive. He opened his eyes briefly to sternal rub but otherwise did not answer questions or follow directions. He is currently on BiPAP 20/12 FiO2 100% with a respiratory rate in the mid 40s to 50s and SPO2 in the low 90s. Unfortunately, ABG this morning revealed worsening respiratory status with respiratory acidosis, increased PCO2, and decreased PaO2. Further laboratory evaluation shows worsening leukocytosis, persistent lymphocytopenia, increased D-dimer, and otherwise elevated but stable inflammatory markers (LDH, ferritin, CRP). Spoke with the patient's family members this morning to discuss his signs of deterioration. Spoke separately with the patient's spouse, and daughters Yamila and Lauren. Per and Dali, Lauren was the designated decision maker. Lauren confirmed the patient to be full code and requested aggressive interventions as indicated. Spoke with Dr. Sosa regarding the patient worsening laboratory and clinical status despite maximized BiPAP support. Dr. Sosa agreed to assess the patient; expeditiously to the bedside and agreed that the patient warranted upgrade to ICU with likely eminent intubation. Reason For Visit: ACUTE HYPOXIC RESPIRATORY FAILURE Physical Exam Vital Signs: Temp Pulse Resp BP Pulse Ox 100.4 F 42 L 53 H 46/30 L 96 04/17/20 13:09 04/17/20 14:00 04/17/20 13:28 04/17/20 13:24 04/17/20 13:05 Intake & Output 04/16/20 04/17/20 04/18/20 06:59 06:59 06:59 Intake Total 0 Output Total 1150 1225 Balance -1150 -1225 Weight 94.3 kg 95.5 kg General appearance: PRESENT: severe distress, well-developed, well-nourished Head exam: PRESENT: atraumatic, normocephalic Eye exam: PRESENT: conjunctiva pink, EOMI, PERRLA. ABSENT: scleral icterus Mouth exam: PRESENT: moist, tongue midline Respiratory exam: PRESENT: decreased breath sounds - Bibasilar: Likely related to poor inspiratory excursion as respiratory rate currently in the 50s, rhonchi, tachypnea, other - Maximize BiPAP support. ABSENT: rales, unlabored, wheezes Cardiovascular exam: PRESENT: irregular rhythm, tachycardia - Heart rate 120- 150. ABSENT: diastolic murmur, rubs, systolic murmur Vascular exam: PRESENT: pallor Neurological exam: PRESENT: other - Brief response to sternal rub Skin exam: PRESENT: dry, intact, mottled, pallor. ABSENT: cyanosis, rash Results Laboratory Results: 04/17/20 08:34 04/17/20 08:34 04/16/20 04/17/20 04/17/20 21:46 05:40 08:34 WBC 15.9 H RBC 4.07 L Hgb 11.8 L Hct 36.5 L MCV 90 MCH 29.1 MCHC 32.4 RDW 15.3 H Plt Count 244 Seg Neutrophils % Not Reportable Carbonic Acid 1.55 H HCO3/H2CO3 Ratio 17:1 ABG pH 7.34 L ABG pCO2 51.6 H ABG pO2 72.8 L ABG HCO3 27.3 H ABG O2 Saturation 93.6 L ABG Base Excess 0.8 FiO2 100% Sodium Potassium Chloride Carbon Dioxide Anion Gap BUN Creatinine Est GFR ( Amer) Glucose Calcium Ferritin C-Reactive Protein Urine Color BETSEY Urine Appearance CLOUDY Urine pH 5.0 Ur Specific Chelsea 1.033 Urine Protein 30 H Urine Glucose (UA) 50 H Urine Ketones TRACE H Urine Blood MODERATE H Urine Nitrite NEGATIVE Ur Leukocyte Esterase NEGATIVE Urine WBC (Auto) 3 Urine RBC (Auto) 87 04/17/20 08:34 WBC RBC Hgb Hct MCV MCH MCHC RDW Plt Count Seg Neutrophils % Carbonic Acid HCO3/H2CO3 Ratio ABG pH ABG pCO2 ABG pO2 ABG HCO3 ABG O2 Saturation ABG Base Excess FiO2 Sodium 145.1 H Potassium 5.0 Chloride 111 H Carbon Dioxide 26 Anion Gap 8 BUN 31 H Creatinine 0.81 Est GFR ( Amer) > 60 Glucose 249 H Calcium 8.3 L Ferritin 351.00 C-Reactive Protein 72.1 H Urine Color Urine Appearance Urine pH Ur Specific Chelsea Urine Protein Urine Glucose (UA) Urine Ketones Urine Blood Urine Nitrite Ur Leukocyte Esterase Urine WBC (Auto) Urine RBC (Auto) 04/06/20 04/06/20 04/06/20 17:10 17:10 21:10 Creatine Kinase 191 H 218 H CK-MB (CK-2) 0.66 Troponin I < 0.012 Impressions: Chest/Abdomen CTA 04/06/20 17:37 IMPRESSION: 1. There is no pulmonary embolus. There is no aortic aneurysm or dissection. 2. Chronic pulmonary fibrosis and bronchiectasis. 3. Cannot exclude multicentric pneumonia, possibly an atypical infectious/ inflammatory process. 4. Questionable thickening of the wall the colon versus mere nondistention. Correlate for inflammatory bowel disease. Chest X-Ray 04/16/20 00:00 IMPRESSION: Persistent basilar patchy interstitial and alveolar opacities, likely edema although infection not excluded. Small bilateral effusions. Assessment and Plan - Diagnosis (1) Acute respiratory failure with hypoxia Is this a current diagnosis for this admission?: Yes (2) Atrial fibrillation Qualifiers: Atrial fibrillation type: paroxysmal Qualified Code(s): I48.0 - Paroxysmal atrial fibrillation Is this a current diagnosis for this admission?: Yes (3) COVID-19 virus infection Is this a current diagnosis for this admission?: Yes (4) Diabetes type 2, controlled Qualifiers: Diabetes mellitus detention insulin use: without intermediate accountant use Diabetes mellitus complication status: without complication Qualified Code(s): E11.9 - Type 2 diabetes mellitus without complications Is this a current diagnosis for this admission?: Yes (5) Multifocal pneumonia Is this a current diagnosis for this admission?: Yes (6) Pulmonary fibrosis Is this a current diagnosis for this admission?: Yes - Plan Summary Summary: Discussed with the machine cloth examiner; Dr. Sosa who agrees the patient warrants ICU admission and likely imminent intubation. While awaiting his transfer to the ICU; the patient's as needed Thorazine, Ativan, Valium, and morphine are all discontinued as I am concerned that these sedative for further suppressing his respiratory rate which may be contributing to his worsening hypercapnia/acidosis. - Time Total Critical Time (Minutes): 30 Medications reviewed and adjusted accordingly: Yes Anticipated Discharge Disposition: undetermined Anticipated Discharge Timeframe: undetermined
--- NOTE | 2020-04-23 13:17 | Death Summary ---
Summary Date : 04/17/20 Time of :: 14:07 Autopsy: No Resuscitation Status: Full Code Consulting Provider: Harshil Sosa MD - Final Diagnosis (1) Acute respiratory failure with hypoxia Is this a current diagnosis for this admission?: Yes (2) COVID-19 virus infection Is this a current diagnosis for this admission?: Yes (3) Diabetes type 2, controlled Is this a current diagnosis for this admission?: Yes (4) Pulmonary fibrosis Is this a current diagnosis for this admission?: Yes Hospital Course:: This patient had been admitted on 04/06/20. He was diagnosed with Covid-19 pneumonia. In his treatment he was placed on bipap wit steadily increasing settings. On Apr 17, he was more obtunded and I was asked to see him for the ICU. Since his course was downtrending I felt that he pawel likely need intubation. For this he was brought to the ICU and intubated easily with a glidescope. He was stable at the time. However about 30 minutes after intubation he became bradycardic from 130 to 50 and also at that time lost his pulses. A code blue was called and ACLS begun. Despite multiple rounds of epinephrine and atropine he never regained ROSC for more than a few minutes. He was noted to be in VF coarse, and was subsequently defibrillated. He finally progressed to asystole despite aggressive efforts and he was pronounced at 14:07 PM on 04/17/20.
--- NOTE | 2020-04-23 13:18 | Operative Report ---
Bedside Procedure - History of Present Illness History of Present Illness: This patient is a 69 yo man diagnosed with Covid pneumonia. He has been maintained on bipap and is on 100%. He is somewhat obtunded but arousable. He has been getting increasingly hypoxic with O2 saturations 88-90 and mildly hypercarbic. His RR is in the 40s. He likely needs intubation. However this looks as though he will not survive as he is getting progressively worse. Indication for Procedure: Failure of bipap Date: 04/17/20 Provider: ZAC APPIAH - Intubation Orotracheal Time of Intubation: 13:00 Airway evaluation: Normal anatomy Mallampati Classification: Class 2 Medications: Etomidate Intubation method: Orotracheal Blade type: Paulie Blade size: 4 Equipment used: Glidescope ETT size: 8.0 ETT secured at: Teeth ETT secured at (cm): 26 Post Intubation Xray: Yes Intubation Complications: No complications
== END 2020-04-17 16:45 | disposition expired | DRG 177 ==
LOC: ER 17:00 → EH 21:08 → 3N 23:35 → ICU 04-17 12:46
PROVIDERS: ADMIT Student in an Organized Health Care Education/Training Program; ATTEND Anesthesiology
PROC: XW033E5 Introduction of Remdesivir Anti-infective into Peripheral Vein, Percutaneous Approach, New Technology Group 5 (ICD-10-PCS; 2020-04-06)
PROC: XW13325 Transfusion of Convalescent Plasma (Nonautologous) into Peripheral Vein, Percutaneous Approach, New Technology Group 5 (ICD-10-PCS; principal; 2020-04-07)
PROC: 5A09357 Assistance with Respiratory Ventilation, Less than 24 Consecutive Hours, Continuous Positive Airway Pressure (ICD-10-PCS; 2020-04-08)
PROC: 0BH17EZ Insertion of Endotracheal Airway into Trachea, Via Natural or Artificial Opening (ICD-10-PCS; 2020-04-17)
DX: U07.1 COVID-19 (principal); J12.89 Other viral pneumonia; J96.01 Acute respiratory failure with hypoxia; J84.10 Pulmonary fibrosis, unspecified; I10 Essential (primary) hypertension; E78.5 Hyperlipidemia, unspecified; E11.9 Type 2 diabetes mellitus without complications; K21.9 Gastro-esophageal reflux disease without esophagitis; M19.90 Unspecified osteoarthritis, unspecified site; I48.0 Paroxysmal atrial fibrillation; I25.2 Old myocardial infarction
CPT/HCPCS: 36415; 36430; 36600; 71045; 71275; 80048; 80053; 81001; 82550; 82553; 82728; 82803; 82962; 83036; 83605; 83615; 83735; 84484; 85025; 85027; 85379; 85610; 85730; 86140; 86900; 86901; 87040; 87635; 92950; 93005; 93010; 94002; 94640; 94660; 94667; 94799; 96361; 96365; 96375; 99285; C9803; J0171; J0456; J0461; J0696; J1100; J1650; J1815; J1940; J2060; J2270; J2405; J2543; J2704; J2930; J3230; J3360; J3490; J7030; J7050; J7060; J7120